=== PATIENT | female | born 1965 | race Caucasian/White ===

== ENCOUNTER 2017-05-25 07:37 | Emergency (ER) | payer BC, MEDICAID ==
--- NOTE | 2017-05-25 07:57 | EDM.PDOC ---
ED HPI GENERAL MEDICAL PROBLEM - General Chief Complaint: Headache Stated Complaint: CONSTANT HEADACHE; ISSUES WITH URINATION Time Seen by Provider: 05/25/17 07:46 Source of Information: Reports: Patient History Limitations: Reports: No Limitations - History of Present Illness INITIAL COMMENTS - FREE TEXT/NARRATIVE: History of present illness: []Patient states that she has been having dark-colored urine with a foul odor. Patient has had a complete hysterectomy in the past. She denies any fevers, chills, nausea or vomiting. She has a moderate headache that is mostly on the left side at the base of her skull posteriorly. She denies any numbness tingling or blurry vision. Patient has had easy and chlamydia in the past states she moved in with her boyfriend one month ago and has been having "a lot of intercourse". Review of systems: As per history of present illness and below otherwise all systems reviewed and negative. Past medical history: As per history of present illness and as reviewed below otherwise noncontributory. Surgical history: As per history of present illness and as reviewed below otherwise noncontributory. Social history: No reported history of drug or alcohol abuse. Family history: As per history of present illness and as reviewed below otherwise noncontributory. Physical exam: General: Well developed, well nourished in NAD HEENT: Atraumatic, normocephalic, pupils reactive, negative for conjunctival pallor or scleral icterus, mucous membranes moist, throat clear, neck supple, nontender, trachea midline. Lungs: Clear to auscultation, breath sounds equal bilaterally, chest nontender. Heart: S1S2, regular, negative for clicks, rubs, or JVD. Abdomen: Soft, nondistended, nontender. Negative for masses or hepatosplenomegaly. Negative for costovertebral tenderness. Pelvis: Stable nontender. Genitourinary: Deferred. Rectal: Deferred. Extremities: Atraumatic, negative for cords or calf pain. Neurovascular unremarkable. Neuro: Awake, alert, oriented. Cranial nerves II through XII unremarkable. Cerebellum unremarkable. Motor and sensory unremarkable throughout. Exam nonfocal. Diagnostics: []UA shows positive nitrites with 2-4 white cells, wet prep shows positive Gardnerella Therapeutics: []Metronidazole and Maxalt prescribed Impression: []Bacterial vaginosis, chronic migraines Plan: []Follow-up PMD take meds as directed to return if symptoms worsen or change Definitive disposition and diagnosis as appropriate pending reevaluation and review of above. Headache Pain Score (Numeric/FACES): 8 - Related Data Allergies Allergy/AdvReac Type Severity Reaction Status Date / Time Iodine and Iodide Containing Allergy Mild Hives Verified 05/25/17 07:50 Produc Sulfa (Sulfonamide AdvReac Vomiting Verified 05/25/17 07:50 Antibiotics) sumatriptan [From Imitrex] AdvReac Tachycardia Verified 05/25/17 07:50 sumatriptan succinate AdvReac Tachycardia Verified 05/25/17 07:50 [From Imitrex] Home Meds: Home Meds Levothyroxine [Synthroid] 75 mcg PO DAILY 01/14/14 [History] Chlorthalidone 25 mg PO DAILY 08/19/15 [History] Metronidazole [IMW: metroNIDAZOLE] 500 mg PO .EVERY 12 HOURS #20 tab 05/25/17 [ Rx] Rizatriptan Benzoate [Maxalt] 5 mg PO ASDIRECTED PRN #6 tablet 05/25/17 [Rx] Past Medical History HEENT History: Reports: None Cardiovascular History: Reports: Hypertension Respiratory History: Reports: Other (See Below) Other Respiratory History: nodule on one lung Gastrointestinal History: Reports: Colon Polyp, GERD Genitourinary History: Reports: None 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 Dermatologic History: Reports: None - Infectious Disease History Infectious Disease History: Reports: None - Past Surgical History Head Surgeries/Procedures: Reports: None HEENT Surgical History: Reports: Naso-Sinus Surgery Cardiovascular Surgical History: Reports: None Female Surgical History: Reports: Hysterectomy Neurological Surgical History: Reports: None Musculoskeletal Surgical History: Reports: Other (See Below) Oncologic Surgical History: Reports: None Dermatological Surgical History: Reports: None Social & Family History - Family History Family Medical History: Noncontributory HEENT: Reports: Glaucoma Cardiac: Reports: Aneurysm, Hypertension OBGYN: Reports: Musculoskeletal: Reports: Arthritis Psychiatric: Reports: Bipolar Oncologic: Reports: Lymphoma, Skin - Tobacco Use Smoking Status *Q: Current Every Day Smoker Years of Tobacco use: 36 Packs/Tins Daily: 0.5 Used Tobacco, but Quit: No Second Hand Smoke Exposure: No - Caffeine Use Caffeine Use: Reports: None - Alcohol Use Days Per Week of Alcohol Use: 3 Number of Drinks Per Day: 2 Total Drinks Per Week: 6 - Recreational Drug Use Recreational Drug Use: No Drug Use in Last 12 Months: Yes Recreational Drug Type: Reports: Marijuana/Hashish Recreational Drug Use Frequency: Rarely Recreational Drug Last Use: 06/15/14 ED ROS GENERAL - Review of Systems Review Of Systems: See Below (See history of present illness) ED EXAM, RENAL/ - Physical Exam Exam: See Below (See history of present illness) Course - Vital Signs Last Recorded V/S: Last Vital Signs Temp 36.3 C 05/25/17 07:47 Pulse 90 05/25/17 07:47 Resp 16 05/25/17 07:47 BP 170/118 H 05/25/17 07:47 Pulse Ox 95 05/25/17 07:47 - Orders/Labs/Meds Orders: Active Orders 24 hr Category Date Time Status CHLAMYDIA TRACHOMATIS/GC AMPLF Routine Lab 05/25/17 08:30 Received Labs: Laboratory Tests 05/25/17 05/25/17 Range/Units 08:01 08:30 Urine Color YELLOW Urine Appearance HAZY Urine pH 6.0 (5.0-8.0) Ur Specific [place] 1.025 (1.001-1.035) Urine Protein 100 (NEGATIVE) mg/dL Urine Glucose (UA) NEGATIVE (NEGATIVE) mg/dL Urine Ketones NEGATIVE (NEGATIVE) mg/dL Urine Occult Blood NEGATIVE (NEGATIVE) Urine Nitrite POSITIVE H (NEGATIVE) Urine Bilirubin NEGATIVE (NEGATIVE) Urine Urobilinogen 0.2 (<2.0) EU/dL Ur Leukocyte Esterase NEGATIVE (NEGATIVE) Urine RBC 0-2 (0-2/HPF) Urine WBC 2-4 (0-5/HPF) Ur Epithelial Cells FEW (NONE-FEW) Urine Bacteria 1+ H (NEGATIVE) Alix species DNA NEGATIVE (NEGATIVE) Gardnerella DNA Probe POSITIVE H (NEGATIVE) Trichomonas DNA Probe NEGATIVE (NEGATIVE) Meds: Medications Discontinued Medications Generic Name Dose Route Start Last Admin Trade Name Freq PRN Reason Stop Dose Admin Ketorolac Tromethamine 60 mg 05/25/17 07:58 05/25/17 08:18 Toradol IM 05/25/17 07:59 60 mg ONETIME ONE Administration Departure - Departure Time of Disposition: 09:48 Disposition: Home, Self-Care 01 Condition: Good Clinical Impression: Bacterial vaginosis - Discharge Information Prescriptions: Metronidazole [IMW: metroNIDAZOLE] 500 mg PO .EVERY 12 HOURS #20 tab Rizatriptan Benzoate [Maxalt] 5 mg PO ASDIRECTED PRN #6 tablet PRN Reason: Pain Referrals: PCP,None [Primary Care Provider] - Forms: ED Department Discharge Additional Instructions: The following information is given to patients seen in the emergency department who are being discharged to home. This information is to outline your options for follow-up care. We provide all patients seen in our emergency department with a follow-up referral. The need for follow-up, as well as the timing and circumstances, are variable depending upon the specifics of your emergency department visit. If you don't have a primary care physician on staff, we will provide you with a referral. We always advise you to contact your personal physician following an emergency department visit to inform them of the circumstance of the visit and for follow-up with them and/or the need for any referrals to a consulting specialist. The emergency department will also refer you to a specialist when appropriate. This referral assures that you have the opportunity for follow-up care with a specialist. All of these measure are taken in an effort to provide you with optimal care, which includes your follow-up. Under all circumstances we always encourage you to contact your private physician who remains a resource for coordinating your care. When calling for follow-up care, please make the office aware that this follow-up is from your recent emergency room visit. If for any reason you are refused follow-up, please contact the [facility] Emergency Department at and asked to speak to the emergency department charge nurse. Metronidazole for bacterial vaginosis and Maxalt for chronic migraine take as directed. Follow-up with your PMD [facility] [address] [place] [id number] - My Orders Last 24 Hours: My Active Orders 05/25/17 08:30 CHLAMYDIA TRACHOMATIS/GC AMPLF Routine - Assessment/Plan Last 24 Hours: My Active Orders 05/25/17 08:30 CHLAMYDIA TRACHOMATIS/GC AMPLF Routine
[2017-05-25] MEDS ORDERED: Ketorolac 60 MG/2 ML SDV IM ONE (07:58)
[2017-05-25 10:04] VITALS: BP 162/106
== END 2017-05-25 10:00 | disposition home or self-care (01) ==
LOC: MW.ED 07:37
DX: N76.0 Acute vaginitis (principal); G43.909 Migraine, unspecified, not intractable, without status migrainosus; I10 Essential (primary) hypertension; K21.9 Gastro-esophageal reflux disease without esophagitis; F17.210 Nicotine dependence, cigarettes, uncomplicated; E03.9 Hypothyroidism, unspecified; Z90.710 Acquired absence of both cervix and uterus; Z88.2 Allergy status to sulfonamides; Z88.8 Allergy status to other drugs, medicaments and biological substances; Z79.899 Other long term (current) drug therapy
CPT/HCPCS: 81001; 87480; 87491; 87510; 87591; 87660; 96372; 99284; J1885; 99283

== ENCOUNTER 2017-08-18 13:17 | Observation (INO) | payer MEDICAID ==
[2017-08-18] MEDS ORDERED: Aspirin 81 MG Tab.Chew PO ONE (13:26)
[2017-08-18] MEDS ORDERED: Sodium Chloride 0.9% 1,000 ML IV ONE (13:26)
--- NOTE | 2017-08-18 13:40 | EDM.PDOC ---
ED HPI GENERAL MEDICAL PROBLEM - General Chief Complaint: Cardiovascular Problem Stated Complaint: CHEST Time Seen by Provider: 08/18/17 13:25 Source of Information: Reports: Patient History Limitations: Reports: No Limitations - History of Present Illness INITIAL COMMENTS - FREE TEXT/NARRATIVE: HISTORY AND PHYSICAL: History of present illness: Patient comes to the emergency room complaining of pain in her chest radiating up into both sides of her jaw. Started 3 hours ago, around 9 AM, and has not let up since onset. Began after eating breakfast at [employer]. She complains of a sensation of pressure to her mid chest and the sensation of her heart pounding in her chest. No shortness of breath or difficulty breathing. Has a history of GERD which she questions if this could be contributing to the pain in her chest. She is to take Prilosec but has not for several years since his symptoms let up. No fever or chills. She has not recently had any illness or infection. She followed up with her PCP yesterday and was represcribed lithium, Levothroid, chlorthalidone. She's not been taking his medications for some time because she did not have insurance. She restarted all of her medicines yesterday. No recent illness or infections. No fever or chills. No earaches runny nose or sore throat. No neck pain. Denies shortness of breath and difficulty breathing. Mild nausea. No vomiting constipation or diarrhea. No blood in her urine or low back pain. No change to strength or energy. No extremity swelling. Reports a history of bipolar disorder which she believes is been well controlled. Review of systems: As per history of present illness and below otherwise all systems reviewed and negative. Past medical history: As per history of present illness and as reviewed below otherwise noncontributory. Surgical history: As per history of present illness and as reviewed below otherwise noncontributory. Social history: No reported history of drug or alcohol abuse. Family history: As per history of present illness and as reviewed below otherwise noncontributory. Physical exam: HEENT: Atraumatic, normocephalic. Oral mucous membranes moist. Neck: Supple. no lymphadenopathy or tenderness. Lungs: Clear to auscultation, breath sounds equal bilaterally. Chest pain is reproduced with palpation across her mid sternum and left anterior chest wall. Heart: S1S2, rate mid 90s but rhythm is regular. No murmur gallop click or rub. Abdomen: Bowel sounds are normoactive throughout. Abdomen is soft and nontender. No guarding masses or rebound. Pelvis: Stable nontender. Genitourinary: Deferred. Rectal: Deferred. Extremities: Atraumatic, negative for cords or calf pain. No swelling or cyanosis to feet or lower legs. Neurovascular unremarkable. Neuro: Awake, alert, oriented. Motor and sensory unremarkable throughout. Exam nonfocal. Diagnostics: [CBC, CMP, PT/INR/PTT, troponin, UA, urine , EKG, chest x-ray] Therapeutics: [1 liter NS, aspirin 325mg po, nitro 0.4mg 2, Reglan 10 mg IV, Zofran 4 mg IV, Benadryl 25 mg IV ] Impression: [Chest pain] Plan: [After the second nitroglycerin patient complains of a headache. This is a typical headache for her. Reglan Zofran and Benadryl are ordered with IV fluids running. Case is discussed with Dr. Sierra who recommends observation. Is completely chest pain free after 2 nitro, and upon admission for observation, though her headache does continue. Patient in agreement with today's plan. ] Definitive disposition and diagnosis as appropriate pending reevaluation and review of above. chest Pain Score (Numeric/FACES): 7 - Related Data Allergies Allergy/AdvReac Type Severity Reaction Status Date / Time Iodine and Iodide Containing Allergy Mild Hives Verified 08/18/17 13:24 Produc Sulfa (Sulfonamide AdvReac Vomiting Verified 08/18/17 13:24 Antibiotics) sumatriptan [From Imitrex] AdvReac Tachycardia Verified 08/18/17 13:24 sumatriptan succinate AdvReac Tachycardia Verified 08/18/17 13:24 [From Imitrex] Home Meds: Home Meds Levothyroxine [Synthroid] 75 mcg PO DAILY 01/14/14 [History] Chlorthalidone [Chlorthalidone] 12.5 mg PO DAILY 08/18/17 [History] [place] Carbonate 300 mg PO DAILY 08/18/17 [History] Past Medical History HEENT History: Reports: None Cardiovascular History: Reports: Hypertension Respiratory History: Reports: Other (See Below) Other Respiratory History: nodule on one lung Gastrointestinal History: Reports: Colon Polyp, GERD 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 Dermatologic History: Reports: None - Infectious Disease History Infectious Disease History: Reports: None - Past Surgical History Head Surgeries/Procedures: Reports: None HEENT Surgical History: Reports: Naso-Sinus Surgery Cardiovascular Surgical History: Reports: None Female Surgical History: Reports: Hysterectomy Neurological Surgical History: Reports: None Musculoskeletal Surgical History: Reports: Other (See Below) Oncologic Surgical History: Reports: None Dermatological Surgical History: Reports: None Social & Family History - Family History Family Medical History: Noncontributory HEENT: Reports: Glaucoma Cardiac: Reports: Aneurysm, Hypertension OBGYN: Reports: Musculoskeletal: Reports: Arthritis Psychiatric: Reports: Bipolar Oncologic: Reports: Lymphoma, Skin - Tobacco Use Smoking Status *Q: Current Every Day Smoker Years of Tobacco use: 36 Packs/Tins Daily: 0.5 Used Tobacco, but Quit: No Second Hand Smoke Exposure: No - Caffeine Use Caffeine Use: Reports: None - Alcohol Use Days Per Week of Alcohol Use: 3 Number of Drinks Per Day: 2 Total Drinks Per Week: 6 - Recreational Drug Use Recreational Drug Use: No Drug Use in Last 12 Months: Yes Recreational Drug Type: Reports: Marijuana/Hashish Recreational Drug Use Frequency: Rarely Recreational Drug Last Use: 06/15/14 ED ROS GENERAL - Review of Systems Review Of Systems: ROS reveals no pertinent complaints other than HPI. ED EXAM, GENERAL - Physical Exam Exam: See Below Course - Vital Signs Last Recorded V/S: Last Vital Signs Temp 98.4 F 08/18/17 13:25 Pulse 84 08/18/17 13:25 Resp 18 08/18/17 13:25 BP 142/88 H 08/18/17 14:17 Pulse Ox 98 08/18/17 13:25 - Orders/Labs/Meds Orders: Active Orders 24 hr Category Date Time Status Patient Status [ADT] Stat ADT 08/18/17 14:32 Active Cardiac Monitoring [RC] . DIRECTED Care 08/18/17 14:35 Active EKG Documentation Completion [RC] STAT Care 08/18/17 13:26 Active Nitroglycerin [Nitrostat] Med 08/18/17 13:51 Active 0.4 mg SL Q5M PRN Medication Orders Nitroglycerin (Nitrostat) 0.4 mg SL Q5M PRN PRN Reason: Chest Pain Last Admin: 08/18/17 14:17 Dose: 0.4 mg Admin: 08/18/17 14:12 Dose: 0.4 mg Labs: Laboratory Tests 08/18/17 08/18/17 08/18/17 Range/Units 13:30 13:30 13:30 WBC 5.68 (4.0-11.0) K/uL RBC 4.36 (4.30-5.90) M/uL Hgb 14.6 (12.0-16.0) g/dL Hct 42.5 (36.0-46.0) % MCV 97.5 (80.0-98.0) fL MCH 33.5 H (27.0-32.0) pg MCHC 34.4 (31.0-37.0) g/dL RDW Std Deviation 46.8 (28.0-62.0) fl RDW Coeff of Fidencio 13 (11.0-15.0) % Plt Count 223 (150-400) K/uL MPV 10.10 (7.40-12.00) fL Neut % (Auto) 50.0 (48.0-80.0) % Lymph % (Auto) 38.7 (16.0-40.0) % [place] % (Auto) 9.9 (0.0-15.0) % Eos % (Auto) 1.2 (0.0-7.0) % Baso % (Auto) 0.2 (0.0-1.5) % Neut # (Auto) 2.8 (1.4-5.7) K/uL Lymph # (Auto) 2.2 (0.6-2.4) K/uL [place] # (Auto) 0.6 (0.0-0.8) K/uL Eos # (Auto) 0.1 (0.0-0.7) K/uL Baso # (Auto) 0.0 (0.0-0.1) K/uL Nucleated RBC % 0.0 /100WBC Nucleated RBCs # 0 K/uL INR 1.07 (0.86-1.11) Sodium 141 (136-146) mmol/L Potassium 3.6 (3.5-5.1) mmol/L Chloride 103 (98-110) mmol/L Carbon Dioxide 29 (21-31) mmol/L BUN 12 (6.0-23.0) mg/dL Creatinine 0.8 (0.6-1.5) mg/dL Est Cr Clr Drug Dosing 71.84 mL/min Estimated GFR (MDRD) > 60.0 ml/min Glucose 117 H (60-110) mg/dL Calcium 10.1 (8.8-10.8) mg/dL Total Bilirubin 0.2 (0.1-1.5) mg/dL AST 31 (5-40) IU/L ALT 26 (8-54) IU/L Alkaline Phosphatase 118 (40-150) Troponin I < 0.10 (0.0-0.29) NG/ML Total Protein 7.4 (6.0-8.0) g/dL Albumin 4.2 (3.5-5.0) g/dL Globulin 3.2 (2.0-3.5) g/dL Albumin/Globulin Ratio 1.3 (1.3-2.8) Amylase 64 (10-90) U/L Lipase 23 (7-80) U/L Urine Color Urine Appearance Urine pH (5.0-8.0) Ur Specific [place] (1.001-1.035) Urine Protein (NEGATIVE) mg/dL Urine Glucose (UA) (NEGATIVE) mg/dL Urine Ketones (NEGATIVE) mg/dL Urine Occult Blood (NEGATIVE) Urine Nitrite (NEGATIVE) Urine Bilirubin (NEGATIVE) Urine Urobilinogen (<2.0) EU/dL Ur Leukocyte Esterase (NEGATIVE) Urine RBC (0-2/HPF) Urine WBC (0-5/HPF) Ur Epithelial Cells (NONE-FEW) Urine Bacteria (NEGATIVE) Urine HCG, Qual (NEGATIVE) 08/18/17 08/18/17 Range/Units 14:08 14:08 WBC (4.0-11.0) K/uL RBC (4.30-5.90) M/uL Hgb (12.0-16.0) g/dL Hct (36.0-46.0) % MCV (80.0-98.0) fL MCH (27.0-32.0) pg MCHC (31.0-37.0) g/dL RDW Std Deviation (28.0-62.0) fl RDW Coeff of Fidencio (11.0-15.0) % Plt Count (150-400) K/uL MPV (7.40-12.00) fL Neut % (Auto) (48.0-80.0) % Lymph % (Auto) (16.0-40.0) % [place] % (Auto) (0.0-15.0) % Eos % (Auto) (0.0-7.0) % Baso % (Auto) (0.0-1.5) % Neut # (Auto) (1.4-5.7) K/uL Lymph # (Auto) (0.6-2.4) K/uL [place] # (Auto) (0.0-0.8) K/uL Eos # (Auto) (0.0-0.7) K/uL Baso # (Auto) (0.0-0.1) K/uL Nucleated RBC % /100WBC Nucleated RBCs # K/uL INR (0.86-1.11) Sodium (136-146) mmol/L Potassium (3.5-5.1) mmol/L Chloride (98-110) mmol/L Carbon Dioxide (21-31) mmol/L BUN (6.0-23.0) mg/dL Creatinine (0.6-1.5) mg/dL Est Cr Clr Drug Dosing mL/min Estimated GFR (MDRD) ml/min Glucose (60-110) mg/dL Calcium (8.8-10.8) mg/dL Total Bilirubin (0.1-1.5) mg/dL AST (5-40) IU/L ALT (8-54) IU/L Alkaline Phosphatase (40-150) Troponin I (0.0-0.29) NG/ML Total Protein (6.0-8.0) g/dL Albumin (3.5-5.0) g/dL Globulin (2.0-3.5) g/dL Albumin/Globulin Ratio (1.3-2.8) Amylase (10-90) U/L Lipase (7-80) U/L Urine Color YELLOW Urine Appearance CLEAR Urine pH 8.0 (5.0-8.0) Ur Specific [place] 1.015 (1.001-1.035) Urine Protein 100 (NEGATIVE) mg/dL Urine Glucose (UA) NEGATIVE (NEGATIVE) mg/dL Urine Ketones NEGATIVE (NEGATIVE) mg/dL Urine Occult Blood NEGATIVE (NEGATIVE) Urine Nitrite NEGATIVE (NEGATIVE) Urine Bilirubin NEGATIVE (NEGATIVE) Urine Urobilinogen 0.2 (<2.0) EU/dL Ur Leukocyte Esterase NEGATIVE (NEGATIVE) Urine RBC 0-1 (0-2/HPF) Urine WBC 0-3 (0-5/HPF) Ur Epithelial Cells FEW (NONE-FEW) Urine Bacteria FEW (NEGATIVE) Urine HCG, Qual NEGATIVE (NEGATIVE) Meds: Medications Generic Name Dose Route Start Last Admin Trade Name Freq PRN Reason Stop Dose Admin Nitroglycerin 0.4 mg 08/18/17 13:51 08/18/17 14:17 Nitrostat SL 0.4 mg Q5M PRN Administration Chest Pain Discontinued Medications Generic Name Dose Route Start Last Admin Trade Name Freq PRN Reason Stop Dose Admin Aspirin 324 mg 08/18/17 13:26 08/18/17 13:40 Aspirin PO 08/18/17 13:27 324 mg ONETIME ONE Administration Al Hydroxide/Mg Hydroxide 15 0 ml 08/18/17 14:19 08/18/17 14:33 ml/ Metoclopramide HCl 5 mg/ PO 08/18/17 14:20 1 each Lidocaine HCl 5 ml ONETIME ONE Administration Diphenhydramine HCl 25 mg 08/18/17 14:39 08/18/17 14:50 Benadryl IVPUSH 08/18/17 14:40 25 mg ONETIME ONE Administration Sodium Chloride 1,000 mls @ 999 mls/hr 08/18/17 13:26 08/18/17 13:41 Normal Saline IV 08/18/17 14:26 999 mls/hr .Bolus ONE Administration Ketorolac Tromethamine 30 mg 08/18/17 14:39 08/18/17 14:49 Toradol IVPUSH 08/18/17 14:40 30 mg ONETIME ONE Administration Metoclopramide HCl 10 mg 08/18/17 14:39 08/18/17 14:49 Reglan IV 08/18/17 14:40 10 mg ONETIME ONE Administration Ondansetron HCl 4 mg 08/18/17 14:19 08/18/17 14:33 Zofran IVPUSH 08/18/17 14:20 4 mg ONETIME ONE Administration Pantoprazole Sodium 80 mg 08/18/17 14:19 08/18/17 14:33 Protonix Iv IVPUSH 08/18/17 14:20 80 mg .BOLUS ONE Administration Departure - Departure Time of Disposition: 14:32 Disposition: Refer to Observation Condition: Good Clinical Impression: Chest pain Referrals: PCP,Unknown [Primary Care Provider] - Forms: ED Department Discharge - My Orders Last 24 Hours: My Active Orders 08/18/17 13:26 EKG Documentation Completion [RC] STAT 08/18/17 13:51 Nitroglycerin [Nitrostat] 0.4 mg SL Q5M PRN 08/18/17 14:32 Patient Status [ADT] Stat 08/18/17 14:35 Cardiac Monitoring [RC] . DIRECTED - Assessment/Plan Last 24 Hours: My Active Orders 08/18/17 13:26 EKG Documentation Completion [RC] STAT 08/18/17 13:51 Nitroglycerin [Nitrostat] 0.4 mg SL Q5M PRN 08/18/17 14:32 Patient Status [ADT] Stat 08/18/17 14:35 Cardiac Monitoring [RC] . DIRECTED
[2017-08-18 14:07] LABS: CHLORIDE,CL 103 mmol/L (98-110); SODIUM,NA 141 mmol/L (136-146)
[2017-08-18] MEDS: Nitroglycerin 0.4 MG Tab.SL SL PRN ×2 (14:12→14:17)
[2017-08-18] MEDS ORDERED: Ondansetron 4 MG/2 ML SDV IVPUSH ONE (14:19)
[2017-08-18] MEDS ORDERED: Alum Hydrox/Mag Hydrox/Simeth 15 ML, Metoclopramide 5 MG, Lidocaine 2% 5 ML PO ONE ×3 (14:19)
[2017-08-18] MEDS ORDERED: Pantoprazole 40 MG Vial IVPUSH ONE (14:19)
[2017-08-18] MEDS ORDERED: Ketorolac 30 MG/ML SDV IVPUSH ONE (14:39)
[2017-08-18] MEDS ORDERED: Metoclopramide 10 MG/2 ML SDV IV ONE (14:39)
[2017-08-18] MEDS ORDERED: diphenhydrAMINE 50 MG/ML SDV IVPUSH ONE (14:39)
--- NOTE | 2017-08-18 15:00 | CR ---
EXAM DATE: 08/18/17 PATIENT'S AGE: 52 Patient: JUSTIN STUBBS Facility: [facility], [place] Site . Site : [id number] Study: XRay Chest [id number] 2:04:14 PM Ordering Physician: Doctor Wheeler Final Report: CHEST 2 VIEWS INDICATION: Chest pain IMPRESSION: Normal heart size and vascular pattern. No pulmonary consolidation. No pneumothorax or pleural abnormality. The upper lobes show scattered bronchial wall thickening which could be chronic. Correlate with symptoms. No pulmonary consolidation. Dictated by Oskar Haro MD @ Aug 18 2017 2:18PM (Electronic Signature) Report Signed by Proxy. DELMIS
[2017-08-18] MEDS ORDERED: Acetaminophen 325 MG Tab PO PRN (15:46)
[2017-08-18] MEDS ORDERED: FLU Vacc QS 2017-18 (36mos UP)/PF 60 MCG/0.5 ML Syringe IM ONE (16:00)
--- NOTE | 2017-08-18 19:51 | PCM.HP ---
H&P History of Present Illness - History of Present Illness Initial Comments - Free Text/Narative: 52 yo female with pmh HTN, hypothyroidsim, and depression who presents with several hour history of chest pain. She describes the chest pain as substernal and associated with palpitations. She has had similar symptoms in the past but never this severe. In the ED she was noted to have blood pressure of 170-150s systolic and HR in 80s. EKG and cardiac enzymes were negative for signs of ischemia. She received two sublingual nitros with resolution of chest pain. chest Pain Score (Numeric/FACES): 7 - Related Data Allergies/Adverse Reactions: Allergies Allergy/AdvReac Type Severity Reaction Status Date / Time Iodine and Iodide Containing Allergy Mild Hives Verified 08/18/17 13:24 Produc Sulfa (Sulfonamide AdvReac Vomiting Verified 08/18/17 13:24 Antibiotics) sumatriptan [From Imitrex] AdvReac Tachycardia Verified 08/18/17 13:24 sumatriptan succinate AdvReac Tachycardia Verified 08/18/17 13:24 [From Imitrex] Home Medications: Home Meds Levothyroxine [Synthroid] 75 mcg PO DAILY 01/14/14 [History] Chlorthalidone 12.5 mg PO DAILY 08/18/17 [History] [place] Carbonate 300 mg PO DAILY 08/18/17 [History] Metoprolol Succinate 50 mg PO DAILY #30 tab.er.24h 08/19/17 [Rx] Past Medical History HEENT History: Reports: None Cardiovascular History: Reports: Hypertension Respiratory History: Reports: Other (See Below) Other Respiratory History: nodule on one lung Gastrointestinal History: Reports: Colon Polyp, GERD Genitourinary History: Reports: None 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 Dermatologic History: Reports: None - Infectious Disease History Infectious Disease History: Reports: None - Past Surgical History Head Surgeries/Procedures: Reports: None HEENT Surgical History: Reports: Naso-Sinus Surgery Cardiovascular Surgical History: Reports: None Female Surgical History: Reports: Hysterectomy Neurological Surgical History: Reports: None Musculoskeletal Surgical History: Reports: Other (See Below) Oncologic Surgical History: Reports: None Dermatological Surgical History: Reports: None Social & Family History - Family History Family Medical History: Noncontributory HEENT: Reports: Glaucoma Cardiac: Reports: Aneurysm, Hypertension OBGYN: Reports: Musculoskeletal: Reports: Arthritis Psychiatric: Reports: Bipolar Oncologic: Reports: Lymphoma, Skin - Tobacco Use Smoking Status *Q: Current Every Day Smoker Years of Tobacco use: 30 Packs/Tins Daily: 0.5 Used Tobacco, but Quit: No Second Hand Smoke Exposure: No - Caffeine Use Caffeine Use: Reports: Coffee - Alcohol Use Days Per Week of Alcohol Use: 3 Number of Drinks Per Day: 2 Total Drinks Per Week: 6 - Recreational Drug Use Recreational Drug Use: No Drug Use in Last 12 Months: Yes Recreational Drug Type: Reports: Marijuana/Hashish Recreational Drug Use Frequency: Rarely Recreational Drug Last Use: 06/15/14 H&P Review of Systems - Review of Systems: Review Of Systems: ROS reveals no pertinent complaints other than HPI. Exam - Exam Exam: See Below - Vital Signs Vital Signs: Last Vital Signs Temp 37.2 C 08/18/17 15:23 Pulse 67 08/18/17 15:23 Resp 20 08/18/17 15:23 BP 136/85 08/18/17 15:23 Pulse Ox 94 L 08/18/17 15:23 Weight: 54.431 kg - Exam General: Alert, Oriented, 4 HEENT: Mucosa Moist & [place] Lungs: Clear to Auscultation, Normal Respiratory Effort Cardiovascular: Regular Rate, Regular Rhythm GI/Abdominal Exam: Soft, Non-Tender Extremities: Normal Inspection, No Pedal Edema Peripheral Pulses: 0: Dorsalis Pedis (R) Skin: Warm, Dry, Intact Neurological: No: Focal Deficit - Patient Data Result Diagrams: 08/18/17 13:30 08/18/17 13:30 *Q Meaningful Use (ADM) - VTE *Q VTE Criteria *Q: - Stroke *Q Stroke Criteria *Q: - AMI *Q AMI Criteria *Q: Problem List Initiated/Reviewed/Updated: Yes Orders Last 24hrs: Active Orders 24 hr Category Date Time Status Antiembolic Devices [RC] PER UNIT ROUTINE Care 08/18/17 19:45 Ordered Intake and Output [RC] QSHIFT Care 08/18/17 19:44 Ordered Oxygen Therapy [RC] PRN Care 08/18/17 19:44 Ordered Telemetry Monitoring [Cardiac Monitoring] [RC] Q8H Care 08/18/17 15:50 Active Up ad Selina [RC] ASDIRECTED Care 08/18/17 19:44 Ordered VTE/DVT Education [RC] PER UNIT ROUTINE Care 08/18/17 19:44 Ordered Vital Signs [RC] Q4H Care 08/18/17 19:44 Ordered Heart Healthy Diet [DIET] Diet 08/18/17 Dinner Active TROPONIN I [CHEM] Q6H Lab 08/18/17 19:35 Received TROPONIN I [CHEM] Q6H Lab 08/19/17 01:30 Ordered Acetaminophen [Tylenol] Med 08/18/17 15:46 Active 650 mg PO Q6H PRN Enoxaparin [Lovenox] Med 08/19/17 09:00 Ordered 40 mg SUBCUT DAILY Sequential Compression Device [OM.PC] Per Unit Routine Oth 08/18/17 19:44 Ordered Resuscitation Status Routine Resus Stat 08/18/17 19:44 Ordered Medication Orders Acetaminophen (Tylenol) 650 mg PO Q6H PRN PRN Reason: Pain Last Admin: 08/18/17 17:56 Dose: 650 mg Nitroglycerin (Nitrostat) 0.4 mg SL Q5M PRN PRN Reason: Chest Pain Last Admin: 08/18/17 14:17 Dose: 0.4 mg Admin: 08/18/17 14:12 Dose: 0.4 mg Assessment/Plan Comment:: 52 yo female who presents with chest pain and palpitations. We will monitor overnight on telemetry and trend cardiac enzymes. Metoprolol has been added to her antihypertensive medications. Update: She ruled out for acute coronary syndrome with serial negative cardiac enzymes. She was discharged home with follow up with Dr. Rosario and referal for cardiac stress testing. She was given a prescription of metoprolol succinate 50mg daily for 30 days.
[2017-08-18] MEDS: Metoprolol Tartrate 25 MG Tab PO SCH (20:34)
[2017-08-19] MEDS ORDERED: Levothyroxine 75 MCG Tab PO SCH (07:00)
[2017-08-19] MEDS: Metoprolol Tartrate 25 MG Tab PO SCH (08:32)
[2017-08-19] MEDS ORDERED: FLU Vacc QS 2017-18 (36mos UP)/PF 60 MCG/0.5 ML Syringe IM ONE (08:45)
[2017-08-19] MEDS ORDERED: Chlorthalidone 25 MG Tab PO SCH (09:00)
[2017-08-19] MEDS ORDERED: Enoxaparin 40 MG/0.4 ML Syringe SUBCUT SCH (09:00)
[2017-08-19] MEDS ORDERED: Lithium Carbonate 300 MG Cap PO SCH (09:00)
[2017-08-19 09:55] VITALS: BP 144/91
== END 2017-08-19 10:00 | disposition home or self-care (01) ==
LOC: MW.ED 13:17 → MW.MS 15:18
PROVIDERS: ADMIT Internal Medicine; ATTEND Internal Medicine
DX: R07.2 Precordial pain (principal); R00.2 Palpitations; I10 Essential (primary) hypertension; E03.9 Hypothyroidism, unspecified; F17.210 Nicotine dependence, cigarettes, uncomplicated; Z86.010 Personal history of colon polyps; Z85.41 Personal history of malignant neoplasm of cervix uteri; Z88.2 Allergy status to sulfonamides; Z88.8 Allergy status to other drugs, medicaments and biological substances; Z91.048 Other nonmedicinal substance allergy status; Z79.899 Other long term (current) drug therapy; Z90.710 Acquired absence of both cervix and uterus; Z98.890 Other specified postprocedural states
CPT/HCPCS: 36415; 71020; 80053; 81001; 81025; 82150; 83690; 84484; 85025; 85610; 96361; 96372; 96374; 96375; 99285; A9270; C9113; G0008; G0378; J1200; J1650; J1885; J2405; J2765; J7040; 90686

== ENCOUNTER 2017-10-31 13:54 | Emergency (ER) | payer MEDICAID, OTHER ==
--- NOTE | 2017-10-31 14:51 | CR ---
EXAMINATION: Right elbow HISTORY: Fall COMPARISON: None TECHNIQUE: 3 views FINDINGS/IMPRESSION: There is no acute osseous abnormality, dislocation, or fracture. Bone mineraliza tion and joint spaces appear normal. No joint effusion or soft tissue swelling.
--- NOTE | 2017-10-31 15:07 | EDM.PDOC ---
ED HPI GENERAL MEDICAL PROBLEM - General Chief Complaint: Upper Extremity Injury/Pain Stated Complaint: RT ELBOW PAIN Time Seen by Provider: 10/31/17 15:07 Source of Information: Reports: Patient - History of Present Illness INITIAL COMMENTS - FREE TEXT/NARRATIVE: HISTORY AND PHYSICAL: History of present illness: []Patient was working today and a vacuum coke still cleaner fell striking her right temporal area she does have a goose egg on the right side of her head there is no loss of consciousness no neck pain no fever nausea vomiting chills sweats no chest pain shortness breath headache dizziness palpitation no bowel or urine symptoms at current She states after the incident she did "see stars " She has a bruise on her right elbow and complains of 6 out of 10 pain associated with this Review of systems: As per history of present illness and below otherwise all systems reviewed and negative. Past medical history: As per history of present illness and as reviewed below otherwise noncontributory. Surgical history: As per history of present illness and as reviewed below otherwise noncontributory. Social history: No reported history of drug or alcohol abuse. Family history: As per history of present illness and as reviewed below otherwise noncontributory. Physical exam: HEENT: Atraumatic, normocephalic, pupils reactive, negative for conjunctival pallor or scleral icterus, mucous membranes moist, throat clear, neck supple, nontender, trachea midline. Lungs: Clear to auscultation, breath sounds equal bilaterally, chest nontender. Heart: S1S2, regular, negative for clicks, rubs, or JVD. Abdomen: Soft, nondistended, nontender. Negative for masses or hepatosplenomegaly. Negative for costovertebral tenderness. Pelvis: Stable nontender. Genitourinary: Deferred. Rectal: Deferred. Extremities: Atraumatic, negative for cords or calf pain. Neurovascular unremarkable. Bruise on right elbow Neuro: Awake, alert, oriented. Cranial nerves II through XII unremarkable. Cerebellum unremarkable. Motor and sensory unremarkable throughout. Exam nonfocal. Diagnostics: [Right elbow complete Head CT no contrast ordered patient refused ] Therapeutics: []Rest ice ibuprofen Impression: [Probable concussion Contusion] Definitive disposition and diagnosis as appropriate pending reevaluation and review of above. - Related Data Allergies Allergy/AdvReac Type Severity Reaction Status Date / Time Iodine and Iodide Containing Allergy Mild Hives Verified 10/31/17 14:06 Produc Sulfa (Sulfonamide AdvReac Vomiting Verified 10/31/17 14:06 Antibiotics) sumatriptan [From Imitrex] AdvReac Tachycardia Verified 10/31/17 14:06 sumatriptan succinate AdvReac Tachycardia Verified 10/31/17 14:06 [From Imitrex] Home Meds: Home Meds Levothyroxine [Synthroid] 75 mcg PO DAILY 01/14/14 [History] Chlorthalidone 12.5 mg PO DAILY 08/18/17 [History] Past Medical History HEENT History: Reports: None Cardiovascular History: Reports: Hypertension Respiratory History: Reports: Other (See Below) Other Respiratory History: nodule on one lung Gastrointestinal History: Reports: Colon Polyp, GERD Genitourinary History: Reports: 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 Dermatologic History: Reports: None - Infectious Disease History Infectious Disease History: Reports: None - Past Surgical History Head Surgeries/Procedures: Reports: None HEENT Surgical History: Reports: Naso-Sinus Surgery Cardiovascular Surgical History: Reports: None Female Surgical History: Reports: Hysterectomy Neurological Surgical History: Reports: None Musculoskeletal Surgical History: Reports: Other (See Below) Oncologic Surgical History: Reports: None Dermatological Surgical History: Reports: None Social & Family History - Family History Family Medical History: Noncontributory HEENT: Reports: Glaucoma Cardiac: Reports: Aneurysm, Hypertension OBGYN: Reports: Musculoskeletal: Reports: Arthritis Psychiatric: Reports: Bipolar Oncologic: Reports: Lymphoma, Skin - Tobacco Use Smoking Status *Q: Current Every Day Smoker Years of Tobacco use: 30 Packs/Tins Daily: 0.5 Used Tobacco, but Quit: No Second Hand Smoke Exposure: No - Caffeine Use Caffeine Use: Reports: Coffee - Alcohol Use Days Per Week of Alcohol Use: 3 Number of Drinks Per Day: 2 Total Drinks Per Week: 6 - Recreational Drug Use Recreational Drug Use: No Drug Use in Last 12 Months: Yes Recreational Drug Type: Reports: Marijuana/Hashish Recreational Drug Use Frequency: Rarely Recreational Drug Last Use: 06/15/14 Review of Systems - Review of Systems Review Of Systems: ROS reveals no pertinent complaints other than HPI. ED EXAM, GENERAL - Physical Exam Exam: See Below Course - Vital Signs Last Recorded V/S: Last Vital Signs Temp 97.6 F 10/31/17 14:05 Pulse 88 10/31/17 14:05 Resp 16 10/31/17 14:05 BP 173/113 H 10/31/17 14:14 Pulse Ox 98 10/31/17 14:05 Departure - Departure Time of Disposition: 15:27 Disposition: Home, Self-Care 01 Condition: Good Clinical Impression: Contusion - Discharge Information Referrals: PCP,None [Primary Care Provider] - Forms: ED Department Discharge Additional Instructions: Standard head injury precaution Return if symptoms persist or worsen or new concerning symptoms develop Rest Ice 20 minute intervals 3 times daily as needed Ibuprofen 400 mg to 800 mg by mouth 3 times daily 7-10 days Follow-up with primary care in 2 weeks sooner as needed The following information is given to patients seen in the emergency department who are being discharged to home. This information is to outline your options for follow-up care. We provide all patients seen in our emergency department with a follow-up referral. The need for follow-up, as well as the timing and circumstances, are variable depending upon the specifics of your emergency department visit. If you don't have a primary care physician on staff, we will provide you with a referral. We always advise you to contact your personal physician following an emergency department visit to inform them of the circumstance of the visit and for follow-up with them and/or the need for any referrals to a consulting specialist. The emergency department will also refer you to a specialist when appropriate. This referral assures that you have the opportunity for follow-up care with a specialist. All of these measure are taken in an effort to provide you with optimal care, which includes your follow-up. Under all circumstances we always encourage you to contact your private physician who remains a resource for coordinating your care. When calling for follow-up care, please make the office aware that this follow-up is from your recent emergency room visit. If for any reason you are refused follow-up, please contact the [facility] emergency department at and asked to speak to the emergency department charge nurse.
[2017-10-31 15:38] VITALS: BP 110/72
== END 2017-10-31 15:37 | disposition home or self-care (01) ==
LOC: MW.ED 13:54
DX: S00.83XA Contusion of other part of head, initial encounter (principal); I10 Essential (primary) hypertension; F17.210 Nicotine dependence, cigarettes, uncomplicated; Z88.2 Allergy status to sulfonamides; Z88.8 Allergy status to other drugs, medicaments and biological substances; Z79.899 Other long term (current) drug therapy; W20.8XXA Other cause of strike by thrown, projected or falling object, initial encounter
CPT/HCPCS: 73080-26-RT; 73080-RT; 99284-25

== ENCOUNTER 2017-11-15 15:32 | Emergency (ER) | payer MEDICAID, OTHER ==
--- NOTE | 2017-11-15 16:18 | EDM.PDOC ---
ED HPI GENERAL MEDICAL PROBLEM - General Chief Complaint: Respiratory Problem Stated Complaint: COLD AND COUGHING Time Seen by Provider: 11/15/17 15:57 - History of Present Illness INITIAL COMMENTS - FREE TEXT/NARRATIVE: HISTORY AND PHYSICAL: History of present illness: The patient is a 52-year-old female with no cardiac or pulmonary disease and presents with a one-week history of malaise subjective fevers and chills generalized body weakness and 3 days of a cough which is nonproductive. The patient is a tobacco user and says she has had pneumonia in the past and she feels that it is similar in symptomatology. The only time that she thought that she had a fever was yesterday evening but she did not have a thermometer she's been eating and drinking normally. Patient did not follow up with her provider at [facility] because she could not get an appointment for a week and the patient did get her influenza vaccine this year. Patient also complains of a sore throat for the last 3 days which gets aggravated by the cough. Patient is only used [id number] DayQuil and NyQuil as well as ibuprofen for her symptoms. Review of systems: As per history of present illness and below otherwise all systems reviewed and negative. Past medical history: As per history of present illness and as reviewed below otherwise noncontributory. Surgical history: As per history of present illness and as reviewed below otherwise noncontributory. Social history: No reported history of drug or alcohol abuse. Family history: As per history of present illness and as reviewed below otherwise noncontributory. Physical exam: Gen.: Well-developed well-nourished thin female who is nontoxic and vital signs have been reviewed by me. she is not breathless on my evaluation she have a hoarse or muffled voice HEENT: Atraumatic, normocephalic, pupils reactive, negative for conjunctival pallor or scleral icterus, mucous membranes moist, throat clear, neck supple, nontender, trachea midline. There is no cervical adenopathy or nuchal rigidity Lungs: Clear to auscultation, breath sounds equal bilaterally, chest nontender. There is no wheezing stridor or work of breathing Heart: S1S2, regulaR rate and rhythm no overt murmurs Abdomen: Soft, nondistended, nontender. Negative for masses or hepatosplenomegaly. Nabs Pelvis: Stable nontender. Genitourinary: Deferred. Rectal: Deferred. Extremities: Atraumatic, negative for cords or calf pain. Neurovascular unremarkable. Neuro: Awake, alert, oriented. Cranial nerves II through XII unremarkable. Cerebellum unremarkable. Motor and sensory unremarkable throughout. Exam nonfocal. Diagnostics: Chest x-ray rapid strep influenza Therapeutics: sPacer and spacer teaching Patient is aware of all testing results and says she has a Ventolin inhaler at home but needs a spacer area and I told her I will give her cough medicine for sleep as well as a prednisone burst and recommend close follow-up. Impression: Acute bronchitis Definitive disposition and diagnosis as appropriate pending reevaluation and review of above. Sore Throat Pain Score (Numeric/FACES): 4 - Related Data Allergies Allergy/AdvReac Type Severity Reaction Status Date / Time Iodine and Iodide Containing Allergy Mild Hives Verified 11/15/17 16:06 Produc Sulfa (Sulfonamide AdvReac Vomiting Verified 11/15/17 16:06 Antibiotics) sumatriptan [From Imitrex] AdvReac Tachycardia Verified 11/15/17 16:06 sumatriptan succinate AdvReac Tachycardia Verified 11/15/17 16:06 [From Imitrex] Home Meds: Home Meds Levothyroxine [Synthroid] 75 mcg PO DAILY 01/14/14 [History] Chlorthalidone 12.5 mg PO DAILY 08/18/17 [History] Past Medical History HEENT History: Reports: None Cardiovascular History: Reports: Hypertension Respiratory History: Reports: Other (See Below) Other Respiratory History: nodule on one lung Gastrointestinal History: Reports: Colon Polyp, GERD 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 Dermatologic History: Reports: None - Infectious Disease History Infectious Disease History: Reports: None - Past Surgical History Head Surgeries/Procedures: Reports: None HEENT Surgical History: Reports: Naso-Sinus Surgery Cardiovascular Surgical History: Reports: None Female Surgical History: Reports: Hysterectomy Neurological Surgical History: Reports: None Musculoskeletal Surgical History: Reports: Other (See Below) Oncologic Surgical History: Reports: None Dermatological Surgical History: Reports: None Social & Family History - Family History Family Medical History: Noncontributory HEENT: Reports: Glaucoma Cardiac: Reports: Aneurysm, Hypertension OBGYN: Reports: Musculoskeletal: Reports: Arthritis Psychiatric: Reports: Bipolar Oncologic: Reports: Lymphoma, Skin - Tobacco Use Smoking Status *Q: Current Every Day Smoker Years of Tobacco use: 30 Packs/Tins Daily: 0.5 Used Tobacco, but Quit: No Second Hand Smoke Exposure: No - Caffeine Use Caffeine Use: Reports: Coffee - Alcohol Use Days Per Week of Alcohol Use: 3 Number of Drinks Per Day: 2 Total Drinks Per Week: 6 - Recreational Drug Use Recreational Drug Use: No Drug Use in Last 12 Months: Yes Recreational Drug Type: Reports: Marijuana/Hashish Recreational Drug Use Frequency: Rarely Recreational Drug Last Use: 06/15/14 ED ROS GENERAL - Review of Systems Review Of Systems: ROS reveals no pertinent complaints other than HPI. ED EXAM, GENERAL - Physical Exam Exam: See Below (See dictation) Course - Vital Signs Last Recorded V/S: Last Vital Signs Temp 37.2 C 11/15/17 16:08 Pulse 80 11/15/17 16:08 Resp 20 11/15/17 16:08 BP 176/115 H 11/15/17 16:08 Pulse Ox 96 11/15/17 16:08 - Orders/Labs/Meds Orders: Active Orders 24 hr Category Date Time Status Communication Order [RC] STAT Care 11/15/17 17:47 Ordered Chest 2V [CR] Stat Exams 11/15/17 16:12 Taken CULTURE STREP A CONFIRMATION [RM] Stat Lab 11/15/17 16:00 Results STREP SCRN A RAPID W CULT CONF [RM] Stat Lab 11/15/17 16:00 Results Departure - Departure Time of Disposition: 17:48 Disposition: Home, Self-Care 01 Condition: Good Clinical Impression: Acute bronchitis Qualifiers: Bronchitis organism: unspecified organism Qualified Code(s): J20.9 - Acute bronchitis, unspecified - Discharge Information Referrals: PCP,None [Primary Care Provider] - Forms: ED Department Discharge Additional Instructions: The following information is given to patients seen in the emergency department who are being discharged to home. This information is to outline your options for follow-up care. We provide all patients seen in our emergency department with a follow-up referral. The need for follow-up, as well as the timing and circumstances, are variable depending upon the specifics of your emergency department visit. If you don't have a primary care physician on staff, we will provide you with a referral. We always advise you to contact your personal physician following an emergency department visit to inform them of the circumstance of the visit and for follow-up with them and/or the need for any referrals to a consulting specialist. The emergency department will also refer you to a specialist when appropriate. This referral assures that you have the opportunity for followup care with a specialist. All of these measure are taken in an effort to provide you with optimal care, which includes your followup. Under all circumstances we always encourage you to contact your private physician who remains a resource for coordinating your care. When calling for followup care, please make the office aware that this follow-up is from your recent emergency room visit. If for any reason you are refused follow-up, please contact the [facility] emergency department at and ask to speak to the emergency department charge nurse. [facility] Primary care- [place] [address] Please use the Ventolin inhaler you have at home with the spacer you have been given giving yourself 1-2 puffs every 6 hours for the next 24 hours and then 1- 2 puffs every 6 hours as needed. Take prednisone as prescribed and cough medicine to help you sleep. Push hydration and please call and follow-up with one of our clinic providers in the next few days for reevaluation and further care. Return to ER as needed and as discussed - My Orders Last 24 Hours: My Active Orders 11/15/17 16:00 CULTURE STREP A CONFIRMATION [RM] Stat STREP SCRN A RAPID W CULT CONF [RM] Stat 11/15/17 16:12 Chest 2V [CR] Stat 11/15/17 17:47 Communication Order [RC] STAT - Assessment/Plan Last 24 Hours: My Active Orders 11/15/17 16:00 CULTURE STREP A CONFIRMATION [RM] Stat STREP SCRN A RAPID W CULT CONF [RM] Stat 11/15/17 16:12 Chest 2V [CR] Stat 11/15/17 17:47 Communication Order [RC] STAT
[2017-11-15 18:22] VITALS: BP 180/99
--- NOTE | 2017-11-16 16:58 | CR ---
EXAM DATE: 11/15/17 PATIENT'S AGE: 52 Patient: JUSTIN STUBBS Facility: [place], [place] Site . Site : [id number] Study: XRay Chest [id number]/1/2018 5:02:11 PM Ordering Physician: Isac Rocha Final Report: INDICATION: Cough x3 days TECHNIQUE: Chest 2 views. COMPARISON: 08/18/2017 FINDINGS: Cardiovascular and mediastinum: Heart size and vasculature are normal in caliber and appearance. Mediastinum is within normal limits. Lungs and pleural spaces: Lungs are clear. No sign of infiltrate or mass. No sign of pleural effusion. No pneumothorax. Bones and soft tissues: No significant findings. IMPRESSION: No evidence for pneumonia. Dictated by Jonny Ospina MD @ 11/15/2017 5:34:58 PM Dictated by: Jonny Ospina MD @ 11/15/2017 17:35:04 (Electronic Signature) Report Signed by Proxy. DELMIS
== END 2017-11-15 18:15 | disposition home or self-care (01) ==
LOC: MW.ED 15:32
DX: J20.9 Acute bronchitis, unspecified (principal); I10 Essential (primary) hypertension; E03.9 Hypothyroidism, unspecified; F17.210 Nicotine dependence, cigarettes, uncomplicated; Z79.899 Other long term (current) drug therapy; Z88.2 Allergy status to sulfonamides; Z88.8 Allergy status to other drugs, medicaments and biological substances
CPT/HCPCS: 71046; 71046-26; 87081; 87804; 87880; 99283

== ENCOUNTER 2017-12-31 15:16 | Emergency (ER) | payer OTHER ==
--- NOTE | 2017-12-31 15:25 | EDM.PDOC ---
ED HPI GENERAL MEDICAL PROBLEM - General Stated Complaint: FALL Time Seen by Provider: 12/31/17 15:17 - History of Present Illness INITIAL COMMENTS - FREE TEXT/NARRATIVE: HISTORY AND PHYSICAL: History of present illness: Patient 52-year-old female presents status post fall which occurred several days prior to arrival in which she had her head she states she hasn't felt right since states that about headache and hypersomnolence. There's been no vomiting no diarrhea she denies any neck pain denies any chest or abdominal pain or trauma Review of systems: As per history of present illness and below otherwise all systems reviewed and negative. Past medical history: As per history of present illness and as reviewed below otherwise noncontributory. Surgical history: As per history of present illness and as reviewed below otherwise noncontributory. Social history: No reported history of drug or alcohol abuse. Family history: As per history of present illness and as reviewed below otherwise noncontributory. Physical exam: HEENT: Atraumatic, normocephalic, pupils reactive, negative for conjunctival pallor or scleral icterus, mucous membranes moist, throat clear, neck supple, nontender, trachea midline. Lungs: Clear to auscultation, breath sounds equal bilaterally, chest nontender. Heart: S1S2, regular, negative for clicks, rubs, or JVD. Abdomen: Soft, nondistended, nontender. Negative for masses or hepatosplenomegaly. Negative for costovertebral tenderness. Pelvis: Stable nontender. Genitourinary: Deferred. Rectal: Deferred. Extremities: Atraumatic, negative for cords or calf pain. Neurovascular unremarkable. Neuro: Awake, alert, oriented. Cranial nerves II through XII unremarkable. Cerebellum unremarkable. Motor and sensory unremarkable throughout. Exam nonfocal. Diagnostics: CT brain UA Therapeutics: None Impression: #1 fall with head injury Definitive disposition and diagnosis as appropriate pending reevaluation and review of above. - Related Data Allergies Allergy/AdvReac Type Severity Reaction Status Date / Time Iodine and Iodide Containing Allergy Mild Hives Verified 11/15/17 16:06 Produc Sulfa (Sulfonamide AdvReac Vomiting Verified 11/15/17 16:06 Antibiotics) sumatriptan [From Imitrex] AdvReac Tachycardia Verified 11/15/17 16:06 sumatriptan succinate AdvReac Tachycardia Verified 11/15/17 16:06 [From Imitrex] Home Meds: Home Meds Levothyroxine [Synthroid] 75 mcg PO DAILY 01/14/14 [History] Chlorthalidone 12.5 mg PO DAILY 08/18/17 [History] Past Medical History HEENT History: Reports: None Cardiovascular History: Reports: Hypertension Respiratory History: Reports: Other (See Below) Other Respiratory History: nodule on one lung Gastrointestinal History: Reports: Colon Polyp, GERD Genitourinary History: Reports: None 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 Dermatologic History: Reports: None - Infectious Disease History Infectious Disease History: Reports: None - Past Surgical History Head Surgeries/Procedures: Reports: None HEENT Surgical History: Reports: Naso-Sinus Surgery Cardiovascular Surgical History: Reports: None Female Surgical History: Reports: Hysterectomy Neurological Surgical History: Reports: None Musculoskeletal Surgical History: Reports: Other (See Below) Oncologic Surgical History: Reports: None Dermatological Surgical History: Reports: None Social & Family History - Family History Family Medical History: Noncontributory HEENT: Reports: Glaucoma Cardiac: Reports: Aneurysm, Hypertension OBGYN: Reports: Musculoskeletal: Reports: Arthritis Psychiatric: Reports: Bipolar Oncologic: Reports: Lymphoma, Skin - Tobacco Use Smoking Status *Q: Current Every Day Smoker Years of Tobacco use: 30 Packs/Tins Daily: 0.5 Used Tobacco, but Quit: No Second Hand Smoke Exposure: No - Caffeine Use Caffeine Use: Reports: Coffee - Alcohol Use Days Per Week of Alcohol Use: 3 Number of Drinks Per Day: 2 Total Drinks Per Week: 6 - Recreational Drug Use Recreational Drug Use: No Drug Use in Last 12 Months: Yes Recreational Drug Type: Reports: Marijuana/Hashish Recreational Drug Use Frequency: Rarely Recreational Drug Last Use: 06/15/14 ED ROS GENERAL - Review of Systems Review Of Systems: ROS reveals no pertinent complaints other than HPI. ED EXAM, GENERAL - Physical Exam Exam: See Below (See dictation) Course - Vital Signs Last Recorded V/S: Last Vital Signs Temp 38.2 C H 12/31/17 17:00 Pulse 100 12/31/17 17:00 Resp 18 12/31/17 17:00 BP 128/72 12/31/17 17:00 Pulse Ox 98 12/31/17 17:00 - Orders/Labs/Meds Orders: Active Orders 24 hr Category Date Time Status Chest 2V [CR] Stat Exams 12/31/17 15:26 Taken Head wo Cont [CT] Stat Exams 12/31/17 15:26 Taken CULTURE BLOOD [BC] Stat Lab 12/31/17 15:35 Received CULTURE BLOOD [BC] Stat Lab 12/31/17 15:46 Received CULTURE URINE [RM] Stat Lab 12/31/17 16:15 Received Levofloxacin/Dextrose 5%-Water [Levaquin in D5W 750 MG/ Med 12/31/17 17:04 Active 150 ML] 750 mg Premix Bag 1 bag IV ONETIME Blood Culture x2 Reflex Set [OM.PC] Stat Oth 12/31/17 15:26 Ordered Medication Orders Levofloxacin/Dextrose 750 mg/ (Premix) 150 mls @ 100 mls/hr IV ONETIME ONE Stop: 12/31/17 18:33 Last Admin: 12/31/17 17:21 Dose: 100 mls/hr Labs: Laboratory Tests 12/31/17 12/31/17 12/31/17 Range/Units 15:35 15:35 16:15 WBC 11.61 H (4.0-11.0) K/uL RBC 4.06 L (4.30-5.90) M/uL Hgb 13.5 (12.0-16.0) g/dL Hct 39.4 (36.0-46.0) % MCV 97.0 (80.0-98.0) fL MCH 33.3 H (27.0-32.0) pg MCHC 34.3 (31.0-37.0) g/dL RDW Std Deviation 47.6 (28.0-62.0) fl RDW Coeff of Fidencio 13 (11.0-15.0) % Plt Count 161 (150-400) K/uL MPV 10.40 (7.40-12.00) fL Add Manual Diff YES Neutrophils % (Manual) 76 (48.0-80.0) % Band Neutrophils % 2 % Lymphocytes % (Manual) 14 L (16.0-40.0) % Monocytes % (Manual) 7 (0.0-15.0) % Eosinophils % (Manual) 1 (0.0-7.0) % Nucleated RBC % 0.0 /100WBC Absolute Seg Neuts 8.8 H (1.4-5.7) Band Neutrophils # 0.2 Lymphocytes # (Manual) 1.6 (0.6-2.4) Monocytes # (Manual) 0.8 (0.0-0.8) Eosinophils # (Manual) 0.1 (0.0-0.7) Nucleated RBCs # 0 K/uL Sodium 128 L (136-145) mmol/L Potassium 3.9 (3.5-5.1) mmol/L Chloride 92 L (98-107) mmol/L Carbon Dioxide 27.0 (21.0-32.0) mmol/L BUN 20 H (7.0-18.0) mg/dL Creatinine 1.2 H (0.6-1.0) mg/dL Est Cr Clr Drug Dosing 47.26 mL/min Estimated GFR (MDRD) 47.4 ml/min Glucose 104 (74-106) mg/dL Calcium 9.0 (8.5-10.1) mg/dL Total Bilirubin 0.5 (0.2-1.0) mg/dL AST 21 (15-37) IU/L ALT 17 (14-63) IU/L Alkaline Phosphatase 87 (46-116) U/L Total Protein 7.8 (6.4-8.2) g/dL Albumin 3.2 L (3.4-5.0) g/dL Globulin 4.6 H (2.0-3.5) g/dL Albumin/Globulin Ratio 0.7 L (1.3-2.8) Urine Color YELLOW Urine Appearance CLEAR Urine pH 6.0 (5.0-8.0) Ur Specific [place] 1.010 (1.001-1.035) Urine Protein 30 (NEGATIVE) mg/dL Urine Glucose (UA) NEGATIVE (NEGATIVE) mg/dL Urine Ketones TRACE H (NEGATIVE) mg/dL Urine Occult Blood SMALL H (NEGATIVE) Urine Nitrite NEGATIVE (NEGATIVE) Urine Bilirubin NEGATIVE (NEGATIVE) Urine Urobilinogen 0.2 (<2.0) EU/dL Ur Leukocyte Esterase SMALL (NEGATIVE) Urine RBC 1-2 (0-2/HPF) Urine WBC 10-12 (0-5/HPF) Ur Epithelial Cells OCCASIONAL (NONE-FEW) Urine Bacteria RARE (NEGATIVE) Meds: Medications Generic Name Dose Route Start Last Admin Trade Name Freq PRN Reason Stop Dose Admin Levofloxacin/Dextrose 750 mg/ 150 mls @ 100 mls/hr 12/31/17 17:04 12/31/17 17 :21 Premix IV 12/31/17 18:33 100 mls/hr ONETIME ONE Administration Discontinued Medications Generic Name Dose Route Start Last Admin Trade Name Freq PRN Reason Stop Dose Admin Acetaminophen 650 mg 12/31/17 15:26 12/31/17 15:57 Tylenol PO 12/31/17 15:27 650 mg NOW ONE Administration Sodium Chloride 1,000 mls @ 999 mls/hr 12/31/17 15:26 12/31/17 16:10 Normal Saline IV 12/31/17 16:26 Not Given STAT ONE Lactated Ringer's 1,000 mls @ 999 mls/hr 12/31/17 15:47 12/31/17 15:55 Ringers, Lactated IV 12/31/17 16:47 999 mls/hr .BOLUS ONE Administration Departure - Departure Time of Disposition: 18:07 Disposition: Home, Self-Care 01 Condition: Good Clinical Impression: Fever, UTI (urinary tract infection), Head injury - Discharge Information Referrals: PCP,None [Primary Care Provider] - Additional Instructions: The following information is given to patients seen in the emergency department who are being discharged to home. This information is to outline your options for follow-up care. We provide all patients seen in our emergency department with a follow-up referral. The need for follow-up, as well as the timing and circumstances, are variable depending upon the specifics of your emergency department visit. If you don't have a primary care physician on staff, we will provide you with a referral. We always advise you to contact your personal physician following an emergency department visit to inform them of the circumstance of the visit and for follow-up with them and/or the need for any referrals to a consulting specialist. The emergency department will also refer you to a specialist when appropriate. This referral assures that you have the opportunity for followup care with a specialist. All of these measure are taken in an effort to provide you with optimal care, which includes your followup. Under all circumstances we always encourage you to contact your private physician who remains a resource for coordinating your care. When calling for followup care, please make the office aware that this follow-up is from your recent emergency room visit. If for any reason you are refused follow-up, please contact the [facility] emergency department at and asked to speak to the emergency department charge nurse. Levaquin as prescribed follow-up primary medical doctor call to schedule routine appointment push fluids Motrin/Tylenol as directed return as needed as discussed - My Orders Last 24 Hours: My Active Orders 12/31/17 15:26 Chest 2V [CR] Stat Head wo Cont [CT] Stat Blood Culture x2 Reflex Set [OM.PC] Stat 12/31/17 15:35 CULTURE BLOOD [BC] Stat 12/31/17 15:46 CULTURE BLOOD [BC] Stat 12/31/17 16:15 CULTURE URINE [RM] Stat 12/31/17 17:04 Levofloxacin/Dextrose 5%-Water [Levaquin in D5W 750 MG/150 ML] 750 mg Premix Bag 1 bag IV ONETIME - Assessment/Plan Last 24 Hours: My Active Orders 12/31/17 15:26 Chest 2V [CR] Stat Head wo Cont [CT] Stat Blood Culture x2 Reflex Set [OM.PC] Stat 12/31/17 15:35 CULTURE BLOOD [BC] Stat 12/31/17 15:46 CULTURE BLOOD [BC] Stat 12/31/17 16:15 CULTURE URINE [RM] Stat 12/31/17 17:04 Levofloxacin/Dextrose 5%-Water [Levaquin in D5W 750 MG/150 ML] 750 mg Premix Bag 1 bag IV ONETIME
[2017-12-31] MEDS ORDERED: Acetaminophen 325 MG Tab PO ONE (15:26)
[2017-12-31] MEDS ORDERED: Sodium Chloride 0.9% 1,000 ML IV ONE (15:26)
[2017-12-31] MEDS ORDERED: Lactated Ringers 1,000 ML IV ONE (15:47)
[2017-12-31] MEDS ORDERED: Levofloxacin/Dextrose 5%-Water 750 MG in Premix Bag 1 BAG IV ONE (17:04)
[2017-12-31 18:55] VITALS: BP 143/98
--- NOTE | 2018-01-01 09:53 | CR ---
EXAM DATE: 12/31/17 PATIENT'S AGE: 52 Patient: JUSTIN STUBBS Facility: [place], [place] Site . Site : 1965 Study: XRay Chest [id number]/19/2018 5:04:30 PM Ordering Physician: Alhaji Rowley Final Report: Indication: Recent fall. Technique: PA and lateral views. Comparison: 11/15/2017. Findings: Normal cardiac, mediastinal and hilar contours. Normal pulmonary vasculature. Mild biapical scarring. Lungs otherwise appear clear. No pleural fluid or pneumothorax. No acute bony abnormality is identified. Impression: No signs of an acute traumatic thoracic injury. Dictated by Mika Mace MD @ 12/31/2017 5:29:11 PM Dictated by: Mika Mace MD @ 12/31/2017 17:29:22 (Electronic Signature) Report Signed by Proxy. [facility]
--- NOTE | 2018-01-01 09:53 | CT ---
EXAM DATE: 12/31/17 PATIENT'S AGE: 52 Patient: JUSTIN STUBBS Facility: [place], [place] Site . Site : 1965 Study: CT Head [id number]/19/2018 5:06:51 PM Ordering Physician: Alhaji Rowley Final Report: INDICATION: Trauma. Dizziness. Nausea TECHNIQUE: Non-contrast CT of the head is submitted. No comparisons. FINDINGS: The ventricles, sulci and gyri are of normal size, shape and contour. Midline structures are centrally located. No convincing evidence of intra- or extra- axial fluid collections. IMPRESSION: 1. No radiographic evidence of acute intracranial abnormalities. Dictated by Xavier Bey MD @ 12/31/2017 5:09:11 PM Please note that all CT scans at this facility use dose modulation, iterative reconstruction, and/or weight-based dosing when appropriate to reduce radiation dose to as low as reasonably achievable. Dictated by: Xavier Bey MD @ 12/31/2017 17:09:27 (Electronic Signature) Report Signed by Proxy. [facility]
== END 2017-12-31 18:55 | disposition home or self-care (01) ==
LOC: MW.ED 15:16
DX: S09.90XA Unspecified injury of head, initial encounter (principal); N39.0 Urinary tract infection, site not specified; I10 Essential (primary) hypertension; E03.9 Hypothyroidism, unspecified; F17.210 Nicotine dependence, cigarettes, uncomplicated; Z88.2 Allergy status to sulfonamides; Z88.8 Allergy status to other drugs, medicaments and biological substances; Z91.041 Radiographic dye allergy status; Z79.899 Other long term (current) drug therapy; W19.XXXA Unspecified fall, initial encounter
CPT/HCPCS: 36415; 70450; 71046; 80053; 81001; 85025; 87040; 87086; 87804; 96361; 96365; 99284; A9270; J1956; J7120; 87077; 87088; 87186; 99283

== ENCOUNTER 2018-01-01 08:10 | Observation (INO) | payer OTHER ==
--- NOTE | 2018-01-01 08:18 | EDM.PDOC ---
ED HPI GENERAL MEDICAL PROBLEM - General Stated Complaint: PER PT, FOUND SOMETHING IN HER BLOOD Time Seen by Provider: 01/01/18 08:18 Source of Information: Reports: Patient - History of Present Illness INITIAL COMMENTS - FREE TEXT/NARRATIVE: HISTORY AND PHYSICAL: History of present illness: [Patient was in yesterday with UTI symptoms started on Levaquin 750 mg IV Did have a blocked positive blood culture which grew Escherichia coli She was called in by Dr. Garcia who For admit observation No fever nausea vomiting chills sweats ] Review of systems: As per history of present illness and below otherwise all systems reviewed and negative. Past medical history: As per history of present illness and as reviewed below otherwise noncontributory. Surgical history: As per history of present illness and as reviewed below otherwise noncontributory. Social history: No reported history of drug or alcohol abuse. Family history: As per history of present illness and as reviewed below otherwise noncontributory. Physical exam: HEENT: Atraumatic, normocephalic, pupils reactive, negative for conjunctival pallor or scleral icterus, mucous membranes moist, throat clear, neck supple, nontender, trachea midline. Lungs: Clear to auscultation, breath sounds equal bilaterally, chest nontender. Heart: S1S2, regular, negative for clicks, rubs, or JVD. Abdomen: Soft, nondistended, nontender. Negative for masses or hepatosplenomegaly. Negative for costovertebral tenderness. Pelvis: Stable nontender. Genitourinary: Deferred. Rectal: Deferred. Extremities: Atraumatic, negative for cords or calf pain. Neurovascular unremarkable. Neuro: Awake, alert, oriented. Cranial nerves II through XII unremarkable. Cerebellum unremarkable. Motor and sensory unremarkable throughout. Exam nonfocal. Diagnostics: [CBC CMP UA ] Therapeutics: [Levaquin 750 mg IV ] Impression: [Fever resolved Leukocytosis resolved Blood culture positive Escherichia coli growth Sepsis] Definitive disposition and diagnosis as appropriate pending reevaluation and review of above. Head Pain Score (Numeric/FACES): 6 Pelvic Pain Score (Numeric/FACES): 6 - Related Data Allergies Allergy/AdvReac Type Severity Reaction Status Date / Time Iodine and Iodide Containing Allergy Mild Hives Verified 01/01/18 08:24 Produc Sulfa (Sulfonamide AdvReac Vomiting Verified 01/01/18 08:24 Antibiotics) sumatriptan [From Imitrex] AdvReac Tachycardia Verified 01/01/18 08:24 sumatriptan succinate AdvReac Tachycardia Verified 01/01/18 08:24 [From Imitrex] Home Meds: Home Meds Levothyroxine [Synthroid] 75 mcg PO DAILY 01/14/14 [History] Chlorthalidone 12.5 mg PO DAILY 08/18/17 [History] Past Medical History HEENT History: Reports: None Cardiovascular History: Reports: Hypertension Respiratory History: Reports: Other (See Below) Other Respiratory History: nodule on one lung Gastrointestinal History: Reports: Colon Polyp, GERD Genitourinary History: Reports: None Other Genitourinary History: recurrent bacterial vaginitis 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 Dermatologic History: Reports: None - Infectious Disease History Infectious Disease History: Reports: None - Past Surgical History Head Surgeries/Procedures: Reports: None HEENT Surgical History: Reports: Naso-Sinus Surgery Cardiovascular Surgical History: Reports: None Female Surgical History: Reports: Hysterectomy Neurological Surgical History: Reports: None Musculoskeletal Surgical History: Reports: Other (See Below) Oncologic Surgical History: Reports: None Dermatological Surgical History: Reports: None Social & Family History - Family History Family Medical History: Noncontributory HEENT: Reports: Glaucoma Cardiac: Reports: Aneurysm, Hypertension OBGYN: Reports: Musculoskeletal: Reports: Arthritis Psychiatric: Reports: Bipolar Oncologic: Reports: Lymphoma, Skin - Tobacco Use Smoking Status *Q: Current Every Day Smoker Years of Tobacco use: 30 Packs/Tins Daily: 0.5 Used Tobacco, but Quit: No Second Hand Smoke Exposure: No - Caffeine Use Caffeine Use: Reports: Coffee - Alcohol Use Days Per Week of Alcohol Use: 3 Number of Drinks Per Day: 2 Total Drinks Per Week: 6 - Recreational Drug Use Recreational Drug Use: No Drug Use in Last 12 Months: Yes Recreational Drug Type: Reports: Marijuana/Hashish Recreational Drug Use Frequency: Rarely Recreational Drug Last Use: 06/15/14 ED ROS GENERAL - Review of Systems Review Of Systems: ROS reveals no pertinent complaints other than HPI. ED EXAM, GENERAL - Physical Exam Exam: See Below Course - Vital Signs Last Recorded V/S: Last Vital Signs Temp 99.8 F 01/01/18 08:32 Pulse 72 01/01/18 08:32 Resp 18 01/01/18 08:32 BP 128/83 01/01/18 08:32 Pulse Ox 98 01/01/18 08:32 - Orders/Labs/Meds Orders: Active Orders 24 hr Category Date Time Status LACTIC ACID,WHOLE BLOOD [BG] Stat Lab 01/01/18 09:06 Ordered UA W/MICROSCOPIC [URIN] Stat Lab 01/01/18 08:52 Ordered Lactated Ringers [Ringers, Lactated] 1,000 ml Med 01/01/18 08:45 Active IV ASDIRECTED Medication Orders Lactated Ringer's (Ringers, Lactated) 1,000 mls @ 125 mls/hr IV ASDIRECTED HARDIK Last Admin: 01/01/18 08:45 Dose: 125 mls/hr Labs: Laboratory Tests 01/01/18 01/01/18 Range/Units 08:31 08:31 WBC 8.18 (4.0-11.0) K/uL RBC 4.10 L (4.30-5.90) M/uL Hgb 13.6 (12.0-16.0) g/dL Hct 39.6 (36.0-46.0) % MCV 96.6 (80.0-98.0) fL MCH 33.2 H (27.0-32.0) pg MCHC 34.3 (31.0-37.0) g/dL RDW Std Deviation 46.8 (28.0-62.0) fl RDW Coeff of Fidencio 13 (11.0-15.0) % Plt Count 168 (150-400) K/uL MPV 11.00 (7.40-12.00) fL Neut % (Auto) 77.4 (48.0-80.0) % Lymph % (Auto) 13.3 L (16.0-40.0) % [place] % (Auto) 9.2 (0.0-15.0) % Eos % (Auto) 0.0 (0.0-7.0) % Baso % (Auto) 0.1 (0.0-1.5) % Neut # (Auto) 6.3 H (1.4-5.7) K/uL Lymph # (Auto) 1.1 (0.6-2.4) K/uL [place] # (Auto) 0.8 (0.0-0.8) K/uL Eos # (Auto) 0.0 (0.0-0.7) K/uL Baso # (Auto) 0.0 (0.0-0.1) K/uL Nucleated RBC % 0.0 /100WBC Nucleated RBCs # 0 K/uL Sodium 132 L (136-145) mmol/L Potassium 3.5 (3.5-5.1) mmol/L Chloride 94 L (98-107) mmol/L Carbon Dioxide 26.3 (21.0-32.0) mmol/L BUN 15 (7.0-18.0) mg/dL Creatinine 1.1 H (0.6-1.0) mg/dL Est Cr Clr Drug Dosing 49.29 mL/min Estimated GFR (MDRD) 52.4 ml/min Glucose 104 (74-106) mg/dL Calcium 9.1 (8.5-10.1) mg/dL Total Bilirubin 0.3 (0.2-1.0) mg/dL AST 24 (15-37) IU/L ALT 20 (14-63) IU/L Alkaline Phosphatase 81 (46-116) U/L Total Protein 7.6 (6.4-8.2) g/dL Albumin 3.0 L (3.4-5.0) g/dL Globulin 4.6 H (2.0-3.5) g/dL Albumin/Globulin Ratio 0.7 L (1.3-2.8) Meds: Medications Generic Name Dose Route Start Last Admin Trade Name Freq PRN Reason Stop Dose Admin Lactated Ringer's 1,000 mls @ 125 mls/hr 01/01/18 08:45 01/01/18 08:45 Ringers, Lactated IV 125 mls/hr ASDIRECTED HARDIK Administration Discontinued Medications Generic Name Dose Route Start Last Admin Trade Name Freq PRN Reason Stop Dose Admin Sodium Chloride 1,000 mls @ 125 mls/hr 01/01/18 08:30 Normal Saline IV STAT HARDIK Departure - Departure Time of Disposition: 09:09 Disposition: Refer to Observation Condition: Fair Clinical Impression: Positive blood culture - Discharge Information Referrals: Rafi Lobato MD [Primary Care Provider] - - My Orders Last 24 Hours: My Active Orders 01/01/18 08:45 Lactated Ringers [Ringers, Lactated] 1,000 ml IV ASDIRECTED 01/01/18 08:52 UA W/MICROSCOPIC [URIN] Stat 01/01/18 09:06 LACTIC ACID,WHOLE BLOOD [BG] Stat - Assessment/Plan Last 24 Hours: My Active Orders 01/01/18 08:45 Lactated Ringers [Ringers, Lactated] 1,000 ml IV ASDIRECTED 01/01/18 08:52 UA W/MICROSCOPIC [URIN] Stat 01/01/18 09:06 LACTIC ACID,WHOLE BLOOD [BG] Stat
[2018-01-01] MEDS ORDERED: Sodium Chloride 0.9% 1,000 ML IV SCH (08:30)
[2018-01-01] MEDS ORDERED: Lactated Ringers 1,000 ML IV SCH (08:45)
[2018-01-01] MEDS ORDERED: Levofloxacin/Dextrose 5%-Water 750 MG in Premix Bag 1 BAG IV ONE (09:10)
--- NOTE | 2018-01-01 09:12 | PCM.HP ---
H&P History of Present Illness - General Date of Service: 01/01/18 Admit Problem/Dx: UTI Suspected Pyleonephritis. Source of Information: Patient History Limitations: Reports: No Limitations - History of Present Illness Initial Comments - Free Text/Narative: 52-year-old female presenting to emergency department with chief complaint of fever, chills, nausea, vomiting with recent diagnosis of UTI with past medical history hypothyroidism and hypertension. Patient presented in the emergency department initially on 12/31/17 rand was diagnosed with a UTI. At that time she did have mild leukocytosis and was discharged with Levaquin by mouth. Patient returns to emergency department after being called for positive blood cultures from previous day in the emergency department. Patient states that she initially started feeling ill this past weekend. She has had urinary tract infections before but this seemed much worse. She had fever, chills, nausea, vomiting and felt generally fatigued with diaphoresis and "kidney pain" all weekend.. She denies any hematuria but has also had some lower back pain. She denies any history of renal stones or pyelonephritis. Patient currently denies any chest pain, palpitations, shortness of breath, syncopal episodes, visits. Emergency department: CBC unremarkable, lactate normal, mild hyponatremia at 132, mildly elevated creatinine 1.1. Urinalysis positive for UTI. She was given Zofran 8 mg IV 1, Levaquin 750 mg, and acetaminophen 1000 mg by mouth. Hemodynamically stable. Patient was admitted for UTI suspected pyelonephritis. PCP Dr. Lobato. Improves with: Reports: None Worsens with: Reports: None Associated Symptoms: Reports: No Other Symptoms Head Pain Score (Numeric/FACES): 6 Pelvic Pain Score (Numeric/FACES): 6 - Related Data Allergies/Adverse Reactions: Allergies Allergy/AdvReac Type Severity Reaction Status Date / Time Iodine and Iodide Containing Allergy Mild Hives Verified 01/01/18 08:24 Produc Sulfa (Sulfonamide AdvReac Vomiting Verified 01/01/18 08:24 Antibiotics) sumatriptan [From Imitrex] AdvReac Tachycardia Verified 01/01/18 08:24 sumatriptan succinate AdvReac Tachycardia Verified 01/01/18 08:24 [From Imitrex] Home Medications: Home Meds Levothyroxine [Synthroid] 75 mcg PO DAILY 01/14/14 [History] Chlorthalidone 12.5 mg PO DAILY 08/18/17 [History] Past Medical History HEENT History: Reports: None Cardiovascular History: Reports: Hypertension Respiratory History: Reports: Other (See Below) Other Respiratory History: nodule on one lung Gastrointestinal History: Reports: Colon Polyp, GERD Genitourinary History: Reports: None Other Genitourinary History: recurrent bacterial vaginitis [employer] History: Reports: 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 Dermatologic History: Reports: None - Infectious Disease History Infectious Disease History: Reports: None - Past Surgical History Head Surgeries/Procedures: Reports: None HEENT Surgical History: Reports: Naso-Sinus Surgery Cardiovascular Surgical History: Reports: None Female Surgical History: Reports: Hysterectomy Neurological Surgical History: Reports: None Musculoskeletal Surgical History: Reports: Other (See Below) Oncologic Surgical History: Reports: None Dermatological Surgical History: Reports: None Social & Family History - Family History Family Medical History: Noncontributory HEENT: Reports: Glaucoma Cardiac: Reports: Aneurysm, Hypertension OBGYN: Reports: Musculoskeletal: Reports: Arthritis Psychiatric: Reports: Bipolar Oncologic: Reports: Lymphoma, Skin - Tobacco Use Smoking Status *Q: Current Every Day Smoker Years of Tobacco use: 30 Packs/Tins Daily: 0.5 Used Tobacco, but Quit: No Second Hand Smoke Exposure: No - Caffeine Use Caffeine Use: Reports: Coffee - Alcohol Use Days Per Week of Alcohol Use: 3 Number of Drinks Per Day: 2 Total Drinks Per Week: 6 - Recreational Drug Use Recreational Drug Use: No Drug Use in Last 12 Months: Yes Recreational Drug Type: Reports: Marijuana/Hashish Recreational Drug Use Frequency: Rarely Recreational Drug Last Use: 06/15/14 H&P Review of Systems - Review of Systems: Review Of Systems: See Below General: Reports: Fever, Chills, Malaise, Fatigue, Diaphoresis HEENT: Denies: Headaches, Sore Throat Pulmonary: Denies: Shortness of Breath, Wheezing, Pleuritic Chest Pain, Cough, Sputum Cardiovascular: Denies: Chest Pain, Palpitations, Lightheadedness, Syncope Gastrointestinal: Reports: Nausea, Vomiting. Denies: Abdominal Pain, Black Stool, Bloody Stool, Diarrhea Genitourinary: Reports: Dysuria, Pain, Urgency, Flank Pain. Denies: Hematuria Musculoskeletal: Denies: Neck Pain, Leg Pain Skin: Denies: Cyanosis Psychiatric: Denies: Confusion Neurological: Denies: Confusion, Dizziness, Headache Hematologic/Lymphatic: Denies: Anemia Immunologic: Denies: Anaphylaxis Exam - Exam Exam: See Below - Vital Signs Vital Signs: Last Vital Signs Temp 99.8 F 01/01/18 08:32 Pulse 72 01/01/18 08:32 Resp 18 01/01/18 08:32 BP 128/83 01/01/18 08:32 Pulse Ox 98 01/01/18 08:32 Weight: 51.6 kg - Exam Quality Assessment: DVT Prophylaxis General: Alert, Oriented, Cooperative HEENT: Conjunctiva Clear, EACs Clear, EOMI, Hearing Intact, Mucosa Moist & [place] , Nares Patent, Normal Nasal Septum, Posterior Pharynx Clear, PERRLA Neck: Supple, Trachea Midline, 2 Lungs: Clear to Auscultation, Normal Respiratory Effort Cardiovascular: Regular Rate, Regular Rhythm, Normal S1, Normal S2 GI/Abdominal Exam: Normal Bowel Sounds, Soft, Non-Tender, No Organomegaly, No Distention (Female) Exam: Deferred Rectal (Female) Exam: Deferred Back Exam: Normal Inspection, Paraspinal Tenderness. No: CVA Tenderness (L), CVA Tenderness (R) Extremities: Normal Inspection, Non-Tender, No Pedal Edema, Normal Capillary Refill Peripheral Pulses: 2+: Radial (L), Radial (R), Posterior Tibial (L), Posterior Tibial (R), Dorsalis Pedis (L), Dorsalis Pedis (R) Skin: Warm, Dry, Intact Neurological: Cranial Nerves Intact Neuro Extensive - Mental Status: Alert, Oriented x3, Normal Mood/Affect, Normal Cognition Neuro Extensive - Motor, Sensory, Reflexes: CN II-XII Intact Psychiatric: Alert, Normal Affect, Normal Mood - Patient Data Lab Results Last 24 hrs: Laboratory Results - last 24 hr 01/01/18 01/01/18 Range/Units 08:31 08:31 WBC 8.18 (4.0-11.0) K/uL RBC 4.10 L (4.30-5.90) M/uL Hgb 13.6 (12.0-16.0) g/dL Hct 39.6 (36.0-46.0) % MCV 96.6 (80.0-98.0) fL MCH 33.2 H (27.0-32.0) pg MCHC 34.3 (31.0-37.0) g/dL RDW Std Deviation 46.8 (28.0-62.0) fl RDW Coeff of Fidencio 13 (11.0-15.0) % Plt Count 168 (150-400) K/uL MPV 11.00 (7.40-12.00) fL Neut % (Auto) 77.4 (48.0-80.0) % Lymph % (Auto) 13.3 L (16.0-40.0) % [place] % (Auto) 9.2 (0.0-15.0) % Eos % (Auto) 0.0 (0.0-7.0) % Baso % (Auto) 0.1 (0.0-1.5) % Neut # (Auto) 6.3 H (1.4-5.7) K/uL Lymph # (Auto) 1.1 (0.6-2.4) K/uL [place] # (Auto) 0.8 (0.0-0.8) K/uL Eos # (Auto) 0.0 (0.0-0.7) K/uL Baso # (Auto) 0.0 (0.0-0.1) K/uL Nucleated RBC % 0.0 /100WBC Nucleated RBCs # 0 K/uL Sodium 132 L (136-145) mmol/L Potassium 3.5 (3.5-5.1) mmol/L Chloride 94 L (98-107) mmol/L Carbon Dioxide 26.3 (21.0-32.0) mmol/L BUN 15 (7.0-18.0) mg/dL Creatinine 1.1 H (0.6-1.0) mg/dL Est Cr Clr Drug Dosing 49.29 mL/min Estimated GFR (MDRD) 52.4 ml/min Glucose 104 (74-106) mg/dL Calcium 9.1 (8.5-10.1) mg/dL Total Bilirubin 0.3 (0.2-1.0) mg/dL AST 24 (15-37) IU/L ALT 20 (14-63) IU/L Alkaline Phosphatase 81 (46-116) U/L Total Protein 7.6 (6.4-8.2) g/dL Albumin 3.0 L (3.4-5.0) g/dL Globulin 4.6 H (2.0-3.5) g/dL Albumin/Globulin Ratio 0.7 L (1.3-2.8) Result Diagrams: 01/01/18 08:31 01/01/18 08:31 *Q Meaningful Use (ADM) - VTE *Q VTE Criteria *Q: - Stroke *Q Stroke Criteria *Q: - AMI *Q AMI Criteria *Q: - Problem List (1) Pyelonephritis SNOMED Code(s): 93090244 ICD Code: N12 - TUBULO-INTERSTITIAL NEPHRITIS, NOT SPCF ACUTE OR CHRONIC Status: Suspected Priority: High Current Visit: Yes (2) Gram-negative bacteremia SNOMED Code(s): 172437176309 ICD Code: R78.81 - BACTEREMIA Status: Suspected Priority: High Current Visit: Yes (3) Hypertension SNOMED Code(s): 42499984 ICD Code: I10 - ESSENTIAL (PRIMARY) HYPERTENSION Status: Chronic Priority : Medium Current Visit: Yes Qualifiers: Hypertension type: essential hypertension Qualified Code(s): I10 - Essential (primary) hypertension (4) Hypothyroid SNOMED Code(s): 22525843 ICD Code: E03.9 - HYPOTHYROIDISM, UNSPECIFIED Status: Chronic Priority: Medium Current Visit: Yes Qualifiers: Hypothyroidism type: unspecified Qualified Code(s): E03.9 - Hypothyroidism , unspecified (5) UTI (urinary tract infection) SNOMED Code(s): 10172547 ICD Code: N39.0 - URINARY TRACT INFECTION, SITE NOT SPECIFIED Status: Acute Priority: High Current Visit: Yes Qualifiers: Urinary tract infection type: acute cystitis Hematuria presence: without hematuria Qualified Code(s): N30.00 - Acute cystitis without hematuria Problem List Initiated/Reviewed/Updated: Yes Orders Last 24hrs: Active Orders 24 hr Category Date Time Status LACTIC ACID,WHOLE BLOOD [BG] Stat Lab 01/01/18 09:06 Ordered UA W/MICROSCOPIC [URIN] Stat Lab 01/01/18 08:52 Ordered Lactated Ringers [Ringers, Lactated] 1,000 ml Med 01/01/18 08:45 Active IV ASDIRECTED Levofloxacin/Dextrose 5%-Water [Levaquin in D5W 750 MG/ Med 01/01/18 09:10 Active 150 ML] 750 mg Premix Bag 1 bag IV ONETIME Medication Orders Lactated Ringer's (Ringers, Lactated) 1,000 mls @ 125 mls/hr IV ASDIRECTED HARDIK Last Admin: 01/01/18 08:45 Dose: 125 mls/hr Levofloxacin/Dextrose 750 mg/ (Premix) 150 mls @ 100 mls/hr IV ONETIME ONE Stop: 01/01/18 10:39 Assessment/Plan Comment:: 52-year-old female admitted 01/01/18 for acute cystitis and suspected pyelonephritis/gram-negative bacteremia with past medical history of hypertension and hypothyroidism. Acute cystitis/pyelonephritis/gram-negative bacteremia: 2 out of 4 tubes positive for gram-negative rods. Patient hemodynamically stable. No white count at this time. We'll treat with Levaquin IV 750 mg and wait for blood culture findings. IVF resus for KENN most likely secondary to dehydration. We'll watch closely for any leukocytosis and continued fevers and broaden spectrum if needed. Renal ultrasound showed multiple tiny echogenic foci within the kidneys bilaterally. Etiology was uncertain however it was that they could represent early nephrolithiasis. Did talk to Dr. Steen, radiologist, who recommended MRI for further investigation. Hypertension: Currently hemodynamically stable will resume home meds but watch for hypotension related to possible sepsis and hold if needed. Hypothyroidism: Stable cont. home meds. VTE: Lovenox, SCD Dispo: 1-2 days pending.
[2018-01-01] MEDS ORDERED: Morphine 2 MG/ML Syringe IVPUSH ONE (09:14)
[2018-01-01] MEDS ORDERED: Ondansetron 4 MG/2 ML SDV IVPUSH ONE (09:14)
[2018-01-01] MEDS ORDERED: Piperacillin/Tazobactam 3.375 GM in Sodium Chloride 0.9% 50 ML IV ONE (10:16)
[2018-01-01] MEDS ORDERED: Acetaminophen 500 MG Tab ONE (10:17)
[2018-01-01] MEDS ORDERED: Acetaminophen 500 MG Tab PO ONE (10:19)
[2018-01-01] MEDS ORDERED: Acetaminophen 325 MG Tab PO PRN (10:48)
[2018-01-01] MEDS ORDERED: Ondansetron 4 MG/2 ML SDV IVPUSH PRN (10:48)
[2018-01-01] MEDS ORDERED: Ondansetron 4 MG Tab.DIS PO PRN (10:48)
[2018-01-01] MEDS: Enoxaparin 40 MG/0.4 ML Syringe SUBCUT SCH (11:21)
[2018-01-01] MEDS: Lactated Ringers 1,000 ML IV SCH ×2 (11:24→17:56)
[2018-01-01] MEDS: Morphine 2 MG/ML Syringe IVPUSH PRN ×2 (11:31→13:45)
--- NOTE | 2018-01-01 12:50 | US ---
EXAMINATION: Renal ultrasound HISTORY: Flank pain COMPARISON: CT dated 01/01/2016 TECHNIQUE: Grayscale and color Doppler images obtained of the kidneys and bladder. FINDINGS: The right kidney measures at least 12.7 cm and the left kidney measures at least 12 cm pole -to-pole without evidence of hydronephrosis. Multiple tiny echogenic nonshadowing foci are noted with in the medullary and cortical regions bilaterally. There is normal color Doppler flow. The urinary bladder appears normal. IMPRESSION: 1. Multiple tiny echogenic foci within the kidneys bilaterally. Etiology is uncertain however these c ould represent early nephrolithiasis.
[2018-01-01] MEDS: HYDROmorphone 1 MG/ML Syringe IVPUSH PRN ×4 (16:06→23:07)
[2018-01-01] MEDS ORDERED: diphenhydrAMINE 50 MG/ML SDV IVPUSH ONE (19:51)
[2018-01-01] MEDS ORDERED: Nicotine 7 MG/24 Hr Patch TRDERM PRN (19:52)
[2018-01-01] MEDS ORDERED: Gadobenate Dimeglumine 529 MG/ML 20 ML SDV IVPUSH STA (21:50)
[2018-01-02] MEDS: Lactated Ringers 1,000 ML IV SCH ×4 (00:58→22:48)
[2018-01-02] MEDS: HYDROmorphone 1 MG/ML Syringe IVPUSH PRN ×6 (01:45→20:58)
[2018-01-02] MEDS: Temazepam 15 MG Cap PO PRN ×2 (02:02→22:06)
[2018-01-02 05:59] LABS: CHLORIDE,CL 97 mmol/L (98-107); SODIUM,NA 135 mmol/L (136-145)
[2018-01-02] MEDS ORDERED: Magnesium Sulfate/Water 4 GM in Premix Bag 1 BAG IV ONE (08:21)
--- NOTE | 2018-01-02 08:22 | PCM.PN ---
- General Info Date of Service: 01/02/18 Admission Dx/Problem (Free Text): UTI, Suspected Pyleonephritis, gram negative crispin bacteremia Subjective Update: Feeling slightly improved but flank and low abdomen pain continues. Dilaudid helping intermittently but doesn't last. No chest pain or SOB. Functional Status: Reports: Pain Controlled, Tolerating Diet, Ambulating, Urinating - Review of Systems General: Reports: Malaise. Denies: Fever HEENT: Reports: No Symptoms. Denies: Headaches, Sore Throat, Visual Changes Pulmonary: Reports: No Symptoms. Denies: Shortness of Breath, Cough, Sputum Cardiovascular: Reports: No Symptoms. Denies: Chest Pain, Edema, Lightheadedness Gastrointestinal: Reports: Abdominal Pain (lower abdomen and bilateral flank pain) Genitourinary: Reports: Frequency, Urgency. Denies: Dysuria, Burning Musculoskeletal: Reports: No Symptoms. Denies: Neck Pain Neurological: Reports: No Symptoms. Denies: Confusion Psychiatric: Reports: No Symptoms. Denies: Confusion - Patient Data Vitals - Most Recent: Last Vital Signs Temp 211.3 F H 01/02/18 07:28 Pulse 66 01/02/18 07:28 Resp 14 01/02/18 07:28 BP 137/86 01/02/18 07:28 Pulse Ox 95 01/02/18 07:28 Weight - Most Recent: 51.6 kg I&O - Last 24 Hours: Intake & Output 01/01/18 01/02/18 01/02/18 22:59 06:59 14:59 Intake Total 1529 1999 Output Total 1550 1200 Balance -21 799 Lab Results Last 24 Hours: Laboratory Results - last 24 hr 01/02/18 01/02/18 Range/Units 04:42 04:42 WBC 5.48 (4.0-11.0) K/uL RBC 3.68 L (4.30-5.90) M/uL Hgb 11.8 L (12.0-16.0) g/dL Hct 36.2 (36.0-46.0) % MCV 98.4 H (80.0-98.0) fL MCH 32.1 H (27.0-32.0) pg MCHC 32.6 (31.0-37.0) g/dL RDW Std Deviation 47.7 (28.0-62.0) fl RDW Coeff of Fidencio 13 (11.0-15.0) % Plt Count 161 (150-400) K/uL MPV 11.20 (7.40-12.00) fL Neut % (Auto) 56.1 (48.0-80.0) % Lymph % (Auto) 28.6 (16.0-40.0) % [place] % (Auto) 14.4 (0.0-15.0) % Eos % (Auto) 0.5 (0.0-7.0) % Baso % (Auto) 0.4 (0.0-1.5) % Neut # (Auto) 3.1 (1.4-5.7) K/uL Lymph # (Auto) 1.6 (0.6-2.4) K/uL [place] # (Auto) 0.8 (0.0-0.8) K/uL Eos # (Auto) 0.0 (0.0-0.7) K/uL Baso # (Auto) 0.0 (0.0-0.1) K/uL Nucleated RBC % 0.0 /100WBC Nucleated RBCs # 0 K/uL Sodium 135 L (136-145) mmol/L Potassium 3.6 (3.5-5.1) mmol/L Chloride 97 L (98-107) mmol/L Carbon Dioxide 32.1 H (21.0-32.0) mmol/L BUN 18 (7.0-18.0) mg/dL Creatinine 0.9 (0.6-1.0) mg/dL Est Cr Clr Drug Dosing 60.24 mL/min Estimated GFR (MDRD) > 60.0 ml/min Glucose 98 (74-106) mg/dL Calcium 9.0 (8.5-10.1) mg/dL Magnesium 1.4 L (1.5-2.0) mg/dL Med Orders - Current: Current Medications Acetaminophen (Tylenol) 650 mg PO Q4H PRN PRN Reason: Pain (Mild 1-3)/fever Chlorthalidone (Chlorthalidone) 12.5 mg PO DAILY [facility] Enoxaparin Sodium (Lovenox) 40 mg SUBCUT DAILY [facility] Last Admin: 01/01/18 11:21 Dose: 40 mg Hydromorphone HCl (Dilaudid) 1 mg IVPUSH Q2H PRN PRN Reason: Pain Last Admin: 01/02/18 06:54 Dose: 1 mg Levofloxacin/Dextrose 750 mg/ (Premix) 150 mls @ 100 mls/hr IV Q24H HARDIK Lactated Ringer's (Ringers, Lactated) 1,000 mls @ 125 mls/hr IV Q8H HARDIK Last Admin: 01/02/18 03:02 Dose: 125 mls/hr Magnesium Sulfate 4 gm/ Premix 100 mls @ 50 mls/hr IV ONETIME ONE Stop: 01/02/18 10:20 Levothyroxine Sodium (Levothyroxine) 75 mcg PO DAILY HARDIK Nicotine (Habitrol) 7 mg TRDERM DAILY PRN PRN Reason: nicotine withdrawal Last Admin: 01/01/18 20:17 Dose: 7 mg Ondansetron HCl (Zofran Odt) 4 mg PO Q4H PRN PRN Reason: nausea, able to take PO Ondansetron HCl (Zofran) 4 mg IVPUSH Q4H PRN PRN Reason: Nausea Temazepam (Restoril) 15 mg PO BEDTIME PRN PRN Reason: Sleep Last Admin: 01/02/18 02:02 Dose: 15 mg Discontinued Medications Acetaminophen (Tylenol Extra Strength) 1,000 mg PO ONETIME ONE Stop: 01/01/18 10:20 Last Admin: 01/01/18 10:20 Dose: 1,000 mg Acetaminophen (Tylenol Extra Strength) Confirm Administered Dose 1,000 mg .ROUTE .STK-MED ONE Stop: 01/01/18 10:18 Last Admin: 01/01/18 10:23 Dose: Not Given Diphenhydramine HCl (Benadryl) 50 mg IVPUSH ONETIME ONE Stop: 01/01/18 19:52 Last Admin: 01/01/18 20:46 Dose: 50 mg Gadobenate Dimeglumine (Multihance) 20 ml IVPUSH ONETIME STA Stop: 01/01/18 21:51 Last Admin: 01/01/18 21:51 Dose: 7 ml Sodium Chloride (Normal Saline) 1,000 mls @ 125 mls/hr IV STAT HARDIK Lactated Ringer's (Ringers, Lactated) 1,000 mls @ 125 mls/hr IV ASDIRECTED HARDIK Last Admin: 01/01/18 08:45 Dose: 125 mls/hr Levofloxacin/Dextrose 750 mg/ (Premix) 150 mls @ 100 mls/hr IV ONETIME ONE Stop: 01/01/18 10:39 Last Admin: 01/01/18 09:41 Dose: 100 mls/hr Piperacillin Sod/Tazobactam (Sod 3.375 gm/ Sodium Chloride) 50 mls @ 100 mls/ hr IV ONETIME ONE Stop: 01/01/18 10:45 Last Admin: 01/01/18 10:23 Dose: Not Given Levofloxacin/Dextrose 500 mg/ (Premix) 100 mls @ 100 mls/hr IV ONETIME ONE Stop: 01/02/18 09:59 Morphine Sulfate (Morphine) 2 mg IVPUSH ONETIME ONE Stop: 01/01/18 09:15 Last Admin: 01/01/18 09:31 Dose: 2 mg Morphine Sulfate (Morphine) 2 mg IVPUSH Q2H PRN PRN Reason: Pain (severe 7-10) Last Admin: 01/01/18 13:45 Dose: 2 mg Ondansetron HCl (Zofran) 8 mg IVPUSH ONETIME ONE Stop: 01/01/18 09:15 Last Admin: 01/01/18 09:26 Dose: 8 mg - Exam Quality Assessment: DVT Prophylaxis General: Alert, Oriented, Cooperative, No Acute Distress Neck: Supple Lungs: Clear to Auscultation, Normal Respiratory Effort Cardiovascular: Regular Rate, Regular Rhythm GI/Abdominal Exam: Normal Bowel Sounds, Soft, No Organomegaly, No Distention, No Abnormal Bruit, No Mass, Pelvis Stable, Tender (lower abdomen bilaterally and flank pain, ) Back Exam: Normal Inspection, Full Range of Motion. No: CVA Tenderness (L), CVA Tenderness (R) Extremities: Normal Inspection, Normal Range of Motion, Non-Tender, No Pedal Edema, Normal Capillary Refill Neurological: No New Focal Deficit Psy/Mental Status: Alert - Problem List & Annotations (1) Gram-negative bacteremia SNOMED Code(s): 655478131066 Code(s): R78.81 - BACTEREMIA Status: Acute Priority: High Current Visit : Yes (2) Pyelonephritis SNOMED Code(s): 15963712 Code(s): N12 - TUBULO-INTERSTITIAL NEPHRITIS, NOT SPCF ACUTE OR CHRONIC Status: Acute Priority: High Current Visit: Yes (3) Abdominal pain SNOMED Code(s): 21974458 Code(s): R10.9 - UNSPECIFIED ABDOMINAL PAIN Status: Acute Current Visit: No Qualifiers: Abdominal location: lower abdomen, unspecified Qualified Code(s): R10.30 - Lower abdominal pain, unspecified (4) Bilateral flank pain SNOMED Code(s): 023897441 Code(s): R10.9 - UNSPECIFIED ABDOMINAL PAIN Status: Acute Current Visit: No (5) Hypertension SNOMED Code(s): 37389141 Code(s): I10 - ESSENTIAL (PRIMARY) HYPERTENSION Status: Chronic Priority : Medium Current Visit: Yes Qualifiers: Hypertension type: essential hypertension Qualified Code(s): I10 - Essential (primary) hypertension (6) Hypothyroid SNOMED Code(s): 01754364 Code(s): E03.9 - HYPOTHYROIDISM, UNSPECIFIED Status: Chronic Priority: Medium Current Visit: Yes Qualifiers: Hypothyroidism type: unspecified Qualified Code(s): E03.9 - Hypothyroidism , unspecified - Problem List Review Problem List Initiated/Reviewed/Updated: Yes - My Orders Last 24 Hours: My Active Orders 01/01/18 11:30 Lactated Ringers [Ringers, Lactated] 1,000 ml IV Q8H 01/01/18 13:48 Abdomen w wo Cont [MR] Routine 01/02/18 08:21 Magnesium Sulfate/Water [Magnesium Sulfate 4 GM in Water 100 ML] 4 gm Premix Bag 1 bag IV ONETIME 01/02/18 09:00 Levofloxacin/Dextrose 5%-Water [Levaquin in D5W 750 MG/150 ML] 750 mg Premix Bag 1 bag IV Q24H - Plan Plan:: 52-year-old female admitted 01/01/18 for acute cystitis and suspected pyelonephritis/gram-negative bacteremia with past medical history of hypertension and hypothyroidism. 1. Gram negative crispin bacteremia secondary to pyelonephritis: 4/4 bottles positive for gram-negative rods, awaiting SUDHIR. [facility] ED returns with E coli, resistant only to ampicillin. No leukocytosis. Continue Levaquin IV 750 mg. No fevers. MRI of abdomen obtained to further evaluate kidneys, wedge shaped regions of restricted diffusion within the renal cortices bilaterally, suspected pyelonephritis less likely renal infarcts. scattered renal cortical cysts bilaterally. Will start Oxycodone 5 mg PRN pain. 2. Hypertension: Stable, continue home medications 3. Hypothyroidism: Stable continue home medications VTE prophylaxis: Lovenox Dispo: 1-2 days pending.
[2018-01-02] MEDS: Chlorthalidone 25 MG Tab PO SCH (08:45)
[2018-01-02] MEDS: Levothyroxine 75 MCG Tab PO SCH (08:45)
[2018-01-02] MEDS: Enoxaparin 40 MG/0.4 ML Syringe SUBCUT SCH (08:46)
[2018-01-02] MEDS ORDERED: Levofloxacin/Dextrose 5%-Water 500 MG in Premix Bag 1 BAG IV ONE (09:00)
[2018-01-02] MEDS ORDERED: Levofloxacin/Dextrose 5%-Water 750 MG in Premix Bag 1 BAG IV SCH (09:00)
[2018-01-02] MEDS ORDERED: oxyCODONE 5 MG Tab PO PRN (09:02)
[2018-01-02] MEDS ORDERED: Pantoprazole 40 MG Vial IVPUSH SCH (16:00)
[2018-01-02] MEDS ORDERED: diphenhydrAMINE 50 MG/ML SDV IVPUSH ONE (16:44)
[2018-01-02] MEDS ORDERED: Ketorolac 30 MG/ML SDV IVPUSH ONE (16:44)
[2018-01-02] MEDS ORDERED: Prochlorperazine 10 MG/2 ML SDV IVPUSH ONE (16:44)
[2018-01-02] MEDS: Acetaminophen/HYDROcodone 325-5 MG Tab PO PRN (22:06)
[2018-01-03] MEDS: Acetaminophen/HYDROcodone 325-5 MG Tab PO PRN ×2 (02:37→08:25)
[2018-01-03] MEDS: HYDROmorphone 1 MG/ML Syringe IVPUSH PRN (05:38)
[2018-01-03 05:59] LABS: CHLORIDE,CL 104 mmol/L (98-107); SODIUM,NA 140 mmol/L (136-145)
[2018-01-03] MEDS: Levothyroxine 75 MCG Tab PO SCH (08:27)
[2018-01-03] MEDS: Chlorthalidone 25 MG Tab PO SCH (08:27)
[2018-01-03] MEDS: Enoxaparin 40 MG/0.4 ML Syringe SUBCUT SCH (08:28)
[2018-01-03 09:12] VITALS: BP 124/71
[2018-01-03] MEDS ORDERED: Polyethylene Glycol 3350 Powder 17 GM Packet PO SCH (09:45)
[2018-01-03] MEDS ORDERED: Phenazopyridine 200 MG Tab PO SCH (09:45)
[2018-01-03] MEDS ORDERED: Levofloxacin 250 MG Tab PO SCH (09:45)
--- NOTE | 2018-01-03 11:19 | PCM.DCSUM1 ---
Discharge Summary - Hospital Course Brief History: 52-year-old female presenting to emergency department with chief complaint of fever, chills, nausea, vomiting with recent diagnosis of UTI with past medical history hypothyroidism and hypertension. Patient presented in the emergency department initially on 12/31/17 rand was diagnosed with a UTI. At that time she did have mild leukocytosis and was discharged with Levaquin by mouth. Patient returns to emergency department after being called for positive blood cultures from previous day in the emergency department. Patient states that she initially started feeling ill this past weekend. She has had urinary tract infections before but this seemed much worse. She had fever, chills, nausea, vomiting and felt generally fatigued with diaphoresis and "kidney pain" all weekend.. She denies any hematuria but has also had some lower back pain. She denies any history of renal stones or pyelonephritis. Patient currently denies any chest pain, palpitations, shortness of breath, syncopal episodes, visits. Emergency department: CBC unremarkable, lactate normal, mild hyponatremia at 132, mildly elevated creatinine 1.1. Urinalysis positive for UTI. She was given Zofran 8 mg IV 1, Levaquin 750 mg, and acetaminophen 1000 mg by mouth. Hemodynamically stable. Patient was admitted for UTI suspected pyelonephritis. PCP Dr. Lobato. - Discharge Data Discharge Date: 01/03/18 Discharge Disposition: Home, Self-Care 01 Condition: Good - Discharge Diagnosis/Problem(s) (1) Gram-negative bacteremia SNOMED Code(s): 836757406144 ICD Code: R78.81 - BACTEREMIA Status: Acute Priority: High Current Visit: Yes (2) Pyelonephritis SNOMED Code(s): 99959148 ICD Code: N12 - TUBULO-INTERSTITIAL NEPHRITIS, NOT SPCF ACUTE OR CHRONIC Status: Acute Priority: High Current Visit: Yes (3) Abdominal pain SNOMED Code(s): 62740590 ICD Code: R10.9 - UNSPECIFIED ABDOMINAL PAIN Status: Acute Current Visit : No Qualifiers: Abdominal location: lower abdomen, unspecified Qualified Code(s): R10.30 - Lower abdominal pain, unspecified (4) Bilateral flank pain SNOMED Code(s): 245973627 ICD Code: R10.9 - UNSPECIFIED ABDOMINAL PAIN Status: Acute Current Visit : No (5) Hypertension SNOMED Code(s): 06315759 ICD Code: I10 - ESSENTIAL (PRIMARY) HYPERTENSION Status: Chronic Priority : Medium Current Visit: Yes Qualifiers: Hypertension type: essential hypertension Qualified Code(s): I10 - Essential (primary) hypertension (6) Hypothyroid SNOMED Code(s): 54039766 ICD Code: E03.9 - HYPOTHYROIDISM, UNSPECIFIED Status: Chronic Priority: Medium Current Visit: Yes Qualifiers: Hypothyroidism type: unspecified Qualified Code(s): E03.9 - Hypothyroidism , unspecified - Discharge Plan Prescriptions/Med Rec: Acetaminophen/HYDROcodone [Robinson 325-5 MG] 1 - 2 tab PO Q4H PRN #20 tablet PRN Reason: Pain Levofloxacin [Levaquin] 750 mg PO DAILY #11 tab Phenazopyridine Hcl [IJD: Phenazopyridine] 200 mg PO TID PRN #15 tablet PRN Reason: urinary pain Home Medications: Home Meds Levothyroxine [Synthroid] 75 mcg PO DAILY 01/14/14 [History] Chlorthalidone 12.5 mg PO DAILY 08/18/17 [History] Acetaminophen/HYDROcodone [Robinson 325-5 MG] 1 - 2 tab PO Q4H PRN #20 tablet 01/03 [Rx] Levofloxacin [Levaquin] 750 mg PO DAILY #11 tab 01/03/18 [Rx] Phenazopyridine Hcl [IJD: Phenazopyridine] 200 mg PO TID PRN #15 tablet [Rx] Patient Handouts: Acetaminophen; Hydrocodone tablets or capsules, Pyelonephritis, Adult, [id number], Phenazopyridine tablets, Urinary Tract Infection, Adult, [id number], Levofloxacin tablets Referrals: Debbi Roland NP [Ordering Only Provider] - 01/10/18 10:15 am - Discharge Summary/Plan Comment DC Time >30 min.: No Discharge Summary/Plan Comment: Discharge Diagnoses: E coli bacteremia Pyelonephritis- E coli KAROLINA Bowen was admited secondary to positive BC with gram negative rods. She was treated for suspected pyelonephritis due to positive UA and lower abdominal and bilateral flank pain. She was treated with Levaquin 750 mg IV. BC and UC returned with same E coli resistant to Ampicillin. She continued to improve and today was feeling much better. She has been afebrile since 01/01. Pain has improved but continues slightly to lower abdomen. repeat BC are pending on discharge. Patient doing much better and eager for discharge home. She was educated on god female hygiene and wiping from front to back to limit bacteria from entering uretha. She verbalized understanding and reports at times she isn' t great with this, but will work on this. She will be continued on Levaquin or pyelonephritis and bacteremia for a total of 14 days. She was given Robinson 5/325 1-2 tabs every 4-6 hours as needed for pain, #20 no RF. She was encouraged to follow up with PCP in 1 week. Appointment has been arranged. She is to return to ED or clinic if concerns should arise. - General Info Date of Service: 01/03/18 Admission Dx/Problem (Free Text: UTI, Suspected Pyleonephritis, gram negative crispin bacteremia Subjective Update: Feeling much better today. Having a little dysuria still, but intermittent. No chest pain or SOB. Scant lower abdominal pain. Requesting discharge today if possible. Functional Status: Reports: Pain Controlled, Tolerating Diet, Ambulating, Urinating - Review of Systems General: Reports: No Symptoms. Denies: Fever HEENT: Reports: No Symptoms. Denies: Headaches, Sore Throat, Visual Changes Pulmonary: Reports: No Symptoms. Denies: Shortness of Breath Cardiovascular: Reports: No Symptoms. Denies: Chest Pain Gastrointestinal: Reports: Abdominal Pain (scant to lower abdomen, but improving. ) Genitourinary: Reports: Dysuria, Urgency. Denies: Frequency, Burning, Pain Musculoskeletal: Reports: No Symptoms. Denies: Neck Pain Skin: Reports: No Symptoms Neurological: Reports: No Symptoms. Denies: Confusion Psychiatric: Reports: No Symptoms. Denies: Confusion - Patient Data Vitals - Most Recent: Last Vital Signs Temp 97.7 F 01/03/18 08:00 Pulse 69 01/03/18 08:00 Resp 16 01/03/18 08:00 BP 124/71 01/03/18 08:00 Pulse Ox 99 01/03/18 08:00 Weight - Most Recent: 51.6 kg I&O - Last 24 hours: Intake & Output 01/02/18 01/03/18 01/03/18 22:59 06:59 14:59 Intake Total 3832 640 999 Output Total 2500 1500 Balance 1332 -860 999 Lab Results - Last 24 hrs: Laboratory Results - last 24 hr 01/03/18 01/03/18 Range/Units 05:08 05:08 WBC 3.92 L (4.0-11.0) K/uL RBC 3.54 L (4.30-5.90) M/uL Hgb 11.5 L (12.0-16.0) g/dL Hct 35.2 L (36.0-46.0) % MCV 99.4 H (80.0-98.0) fL MCH 32.5 H (27.0-32.0) pg MCHC 32.7 (31.0-37.0) g/dL RDW Std Deviation 49.2 (28.0-62.0) fl RDW Coeff of Fidencio 13 (11.0-15.0) % Plt Count 163 (150-400) K/uL MPV 11.20 (7.40-12.00) fL Neut % (Auto) 52.5 (48.0-80.0) % Lymph % (Auto) 32.7 (16.0-40.0) % Brooke % (Auto) 12.2 (0.0-15.0) % Eos % (Auto) 2.3 (0.0-7.0) % Baso % (Auto) 0.3 (0.0-1.5) % Neut # (Auto) 2.1 (1.4-5.7) K/uL Lymph # (Auto) 1.3 (0.6-2.4) K/uL Brooke # (Auto) 0.5 (0.0-0.8) K/uL Eos # (Auto) 0.1 (0.0-0.7) K/uL Baso # (Auto) 0.0 (0.0-0.1) K/uL Nucleated RBC % 0.0 /100WBC Nucleated RBCs # 0 K/uL Sodium 140 (136-145) mmol/L Potassium 5.2 H (3.5-5.1) mmol/L Chloride 104 (98-107) mmol/L Carbon Dioxide 34.1 H (21.0-32.0) mmol/L BUN 20 H (7.0-18.0) mg/dL Creatinine 0.8 (0.6-1.0) mg/dL Est Cr Clr Drug Dosing 67.77 mL/min Estimated GFR (MDRD) > 60.0 ml/min Glucose 100 (74-106) mg/dL Calcium 9.0 (8.5-10.1) mg/dL Med Orders - Current: Current Medications Acetaminophen (Tylenol) 650 mg PO Q4H PRN PRN Reason: Pain (Mild 1-3)/fever Hydrocodone Bitart/Acetaminophen (Robinson 325-5 Mg) 1 - 2 tab PO Q4H PRN PRN Reason: Pain Last Admin: 01/03/18 08:25 Dose: 2 tab Chlorthalidone (Chlorthalidone) 12.5 mg PO DAILY [facility] Last Admin: 01/03/18 08:27 Dose: 12.5 mg Enoxaparin Sodium (Lovenox) 40 mg SUBCUT DAILY [facility] Last Admin: 01/03/18 08:28 Dose: 40 mg Hydromorphone HCl (Dilaudid) 1 mg IVPUSH Q2H PRN PRN Reason: Pain Last Admin: 01/03/18 05:38 Dose: 1 mg Levofloxacin (Levaquin) 750 mg PO Q24H [facility] Last Admin: 01/03/18 11:03 Dose: 750 mg Levothyroxine Sodium (Levothyroxine) 75 mcg PO DAILY [facility] Last Admin: 01/03/18 08:27 Dose: 75 mcg Nicotine (Habitrol) 7 mg TRDERM DAILY PRN PRN Reason: nicotine withdrawal Last Admin: 01/01/18 20:17 Dose: 7 mg Ondansetron HCl (Zofran Odt) 4 mg PO Q4H PRN PRN Reason: nausea, able to take PO Ondansetron HCl (Zofran) 4 mg IVPUSH Q4H PRN PRN Reason: Nausea Pantoprazole Sodium (Protonix Iv) 40 mg IVPUSH Q24H [facility] Last Admin: 01/02/18 17:26 Dose: 40 mg Phenazopyridine HCl (Pyridium) 200 mg PO TID [facility] Last Admin: 01/03/18 11:03 Dose: 200 mg Polyethylene Glycol (Miralax) 17 gm PO DAILY [facility] Last Admin: 01/03/18 11:03 Dose: 17 gm Temazepam (Restoril) 15 mg PO BEDTIME PRN PRN Reason: Sleep Last Admin: 01/02/18 22:06 Dose: 15 mg Discontinued Medications Acetaminophen (Tylenol Extra Strength) 1,000 mg PO ONETIME ONE Stop: 01/01/18 10:20 Last Admin: 01/01/18 10:20 Dose: 1,000 mg Acetaminophen (Tylenol Extra Strength) Confirm Administered Dose 1,000 mg .ROUTE .STK-MED ONE Stop: 01/01/18 10:18 Last Admin: 01/01/18 10:23 Dose: Not Given Diphenhydramine HCl (Benadryl) 50 mg IVPUSH ONETIME ONE Stop: 01/01/18 19:52 Last Admin: 01/01/18 20:46 Dose: 50 mg Diphenhydramine HCl (Benadryl) 50 mg IVPUSH ONETIME ONE Stop: 01/02/18 16:45 Last Admin: 01/02/18 17:31 Dose: 50 mg Gadobenate Dimeglumine (Multihance) 20 ml IVPUSH ONETIME STA Stop: 01/01/18 21:51 Last Admin: 01/01/18 21:51 Dose: 7 ml Sodium Chloride (Normal Saline) 1,000 mls @ 125 mls/hr IV STAT HARDIK Lactated Ringer's (Ringers, Lactated) 1,000 mls @ 125 mls/hr IV ASDIRECTED [facility] Last Admin: 01/01/18 08:45 Dose: 125 mls/hr Levofloxacin/Dextrose 750 mg/ (Premix) 150 mls @ 100 mls/hr IV ONETIME ONE Stop: 01/01/18 10:39 Last Admin: 01/01/18 09:41 Dose: 100 mls/hr Piperacillin Sod/Tazobactam (Sod 3.375 gm/ Sodium Chloride) 50 mls @ 100 mls/ hr IV ONETIME ONE Stop: 01/01/18 10:45 Last Admin: 01/01/18 10:23 Dose: Not Given Levofloxacin/Dextrose 500 mg/ (Premix) 100 mls @ 100 mls/hr IV ONETIME ONE Stop: 01/02/18 09:59 Levofloxacin/Dextrose 750 mg/ (Premix) 150 mls @ 100 mls/hr IV Q24H [facility] Last Admin: 01/02/18 10:42 Dose: 100 mls/hr Lactated Ringer's (Ringers, Lactated) 1,000 mls @ 125 mls/hr IV Q8H [facility] Last Admin: 01/02/18 22:48 Dose: 125 mls/hr Magnesium Sulfate 4 gm/ Premix 100 mls @ 50 mls/hr IV ONETIME ONE Stop: 01/02/18 10:20 Last Admin: 01/02/18 08:42 Dose: 50 mls/hr Ketorolac Tromethamine (Toradol) 30 mg IVPUSH ONETIME ONE Stop: 01/02/18 16:45 Last Admin: 01/02/18 17:31 Dose: 30 mg Morphine Sulfate (Morphine) 2 mg IVPUSH ONETIME ONE Stop: 01/01/18 09:15 Last Admin: 01/01/18 09:31 Dose: 2 mg Morphine Sulfate (Morphine) 2 mg IVPUSH Q2H PRN PRN Reason: Pain (severe 7-10) Last Admin: 01/01/18 13:45 Dose: 2 mg Ondansetron HCl (Zofran) 8 mg IVPUSH ONETIME ONE Stop: 01/01/18 09:15 Last Admin: 01/01/18 09:26 Dose: 8 mg Oxycodone HCl (Oxycodone) 5 mg PO Q4H PRN PRN Reason: Pain Last Admin: 01/02/18 09:23 Dose: 5 mg Prochlorperazine Edisylate (Compazine) 10 mg IVPUSH ONETIME ONE Stop: 01/02/18 16:45 Last Admin: 01/02/18 17:32 Dose: 10 mg - Exam General: Reports: Alert, Oriented, Cooperative, No Acute Distress Neck: Reports: Supple Lungs: Reports: Clear to Auscultation, Normal Respiratory Effort Cardiovascular: Reports: Regular Rate, Regular Rhythm GI/Abdominal Exam: Normal Bowel Sounds, Soft, No Organomegaly, No Distention, No Abnormal Bruit, No Mass, Pelvis Stable, Tender (scant to lower abdomen, significant improved from admission.) Back Exam: Reports: Normal Inspection, Full Range of Motion. Denies: CVA Tenderness (L), CVA Tenderness (R) Skin: Reports: Warm, Dry, Intact Neurological: Reports: No New Focal Deficit Psy/Mental Status: Reports: Alert, Normal Affect, Normal Mood *Q Meaningful Use (DIS) - VTE *Q VTE Criteria *Q: - Stroke *Q Stroke Criteria *Q: - AMI *Q AMI Criteria *Q:
[2018-01-03 12:58] LABS: CHLORIDE,CL 101 mmol/L (98-107); SODIUM,NA 138 mmol/L (136-145)
--- NOTE | 2018-01-03 15:43 | MR ---
EXAM DATE: 01/01/18 PATIENT'S AGE: 52 Patient: JUSTIN STUBBS Facility: [facility] Site . Site : [id number] Study: MRI-Abdomen W/ and W/O Cont [id number]/[id number] 9:59:08 PM Ordering Physician: Rodolfo Mccarthy Final Report: INDICATION: Pyelonephritis. Hypertension. Acute cystitis. TECHNIQUE: Abdominal MRI with T1 in- and out of phase, T2, diffusion weighted, and progressively delayed post-contrast images. Intravenous gadolinium administered. FINDINGS: No fatty infiltration of the liver. No focal abnormalities identified in the visualized portions of the liver, spleen, pancreas, and adrenal glands. Scattered punctate very small cysts in both kidneys. Mild heterogeneity of the enhancement of the kidneys. The kidneys are otherwise unremarkable. No hydronephrosis. Dilation of the common bile duct measuring 1.4 cm. No intrahepatic bile duct dilation. No choledocholithiasis. Normal size of the main pancreatic duct. IMPRESSION: 1. Mild heterogeneity of the enhancement of the kidneys may be secondary to pyelonephritis. 2. Dilation of the common bile duct with no intrahepatic bile duct dilation. This could be secondary to a previously passed stone. No current choledocholithiasis. Dictated by Dg Calzada MD @ Jan 03 2018 2:28PM Signed by: Dg Calzada MD @01/03/2018 2:38:45 PM (Electronic Signature) Report Signed by Proxy. DELMIS
== END 2018-01-03 13:30 | disposition home or self-care (01) ==
LOC: MW.ED 08:10 → MW.MS 09:25
PROVIDERS: ADMIT Family Medicine; ATTEND Family Medicine
DX: R78.81 Bacteremia (principal); N12 Tubulo-interstitial nephritis, not specified as acute or chronic; B96.20 Unspecified Escherichia coli [E. coli] as the cause of diseases classified elsewhere; E03.9 Hypothyroidism, unspecified; I10 Essential (primary) hypertension; E87.1 Hypo-osmolality and hyponatremia; K21.9 Gastro-esophageal reflux disease without esophagitis; F17.210 Nicotine dependence, cigarettes, uncomplicated; Z79.899 Other long term (current) drug therapy; Z91.041 Radiographic dye allergy status; Z88.8 Allergy status to other drugs, medicaments and biological substances; Z88.2 Allergy status to sulfonamides
CPT/HCPCS: 36415; 74183; 76775; 80048; 80053; 81001; 83605; 83735; 85025; 87040; 87086; 96361; 96365; 96366; 96367; 96372; 96375; 96376; 99283; A9270; A9577; C9113; G0378; J0780; J1170; J1200; J1650; J1885; J1956; J2270; J2405; J2543; J3475; J7050; J7120

== ENCOUNTER 2018-02-02 13:22 | Emergency (ER) | payer OTHER ==
[2018-02-02] MEDS ORDERED: Sodium Chloride 0.9% 10 ML Syringe FLUSH PRN (13:33)
[2018-02-02] MEDS ORDERED: Sodium Chloride 0.9% 2.5 ML Syringe FLUSH PRN (13:33)
--- NOTE | 2018-02-02 13:40 | EDM.PDOC ---
ED HPI GENERAL MEDICAL PROBLEM - General Chief Complaint: General Stated Complaint: POSSIBLE ECOLI IN BLOODSTREAM Time Seen by Provider: 02/02/18 13:35 Source of Information: Reports: Patient History Limitations: Reports: No Limitations - History of Present Illness INITIAL COMMENTS - FREE TEXT/NARRATIVE: HISTORY AND PHYSICAL: []52-year-old presenting with suspected E. coli infection History of Present Illness: []Patient was seen in December hospitalized for urinary tract infection with Escherichia coli and is feeling the same symptoms She has been sick for 4 days Hysterectomy in 2005 Review of Systems: As per history of present illness and below otherwise all systems reviewed and negative. Past medical history: As per history of present illness and as reviewed below otherwise noncontributory. Surgical history: As per history of present illness and as reviewed below otherwise noncontributory. Social history: No reported history of drug or alcohol abuse. Family history: As per history of present illness and as reviewed below otherwise noncontributory. Physical exam: Alert oriented female answering questions appropriately has difficulty taking a full breath HEENT: Atraumatic, normocehpalic, pupils reactive, negative for conjunctival pallor or scleral icterus, mucous membranes moist, throat clear, neck supple, nontender, trachea midline. Poor inspiratory effort Lungs: Clear to auscultation, breath sounds equal bilaterally, chest non tender. Breath sounds are shallow Heart: S1S2, regular, negative for clicks, rubs, or JVD. Abdomen: Soft, nondistended, nontender. Negative for masses or hepatossplenmegaly. Negative for costovertebral tenderness. Pelvis: Stable nontender. Genitourinary: Deferred. Rectal: Deferred Extremities: Atraumatic, negative for cords or calf pain. Neurovascular unremarkable. Neuro: Awake, alert, oriented. Cranial nerves II through XII unremarkable. Cerebellum unremarkable. Motor and sensory unremarkable throughout. Exam nonfocal. Breathing improved with DuoNeb treatment Skeletal lab values and chest x-ray with her Diagnostics: [CBC CMP UA urine screen x-ray] Therapeutics: []duoneb Impression: []Respiratory infection Plan: []Discharged home Levaquin 500 daily 6 Follow-up his primary care Return to the emergency room is discussed and directed Definitive disposition and diagnosis as appropriate pending reevaluation and review of above. Onset: Sudden Duration: Day(s): (4) Location: Reports: Generalized Quality: Reports: Ache Severity: Moderate chest,throat,low back Pain Score (Numeric/FACES): 9 - Related Data Allergies Allergy/AdvReac Type Severity Reaction Status Date / Time Iodine and Iodide Containing Allergy Mild Hives Verified 02/02/18 13:30 Produc Sulfa (Sulfonamide AdvReac Vomiting Verified 02/02/18 13:30 Antibiotics) sumatriptan [From Imitrex] AdvReac Tachycardia Verified 02/02/18 13:30 sumatriptan succinate AdvReac Tachycardia Verified 02/02/18 13:30 [From Imitrex] Home Meds: Home Meds Levothyroxine [Synthroid] 75 mcg PO DAILY 01/14/14 [History] Chlorthalidone 12.5 mg PO DAILY 08/18/17 [History] Past Medical History HEENT History: Reports: None Cardiovascular History: Reports: Hypertension Respiratory History: Reports: Other (See Below) Other Respiratory History: nodule on one lung Gastrointestinal History: Reports: Colon Polyp, GERD Genitourinary History: Reports: None Other Genitourinary History: recurrent bacterial vaginitis 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 Dermatologic History: Reports: None - Infectious Disease History Infectious Disease History: Reports: None - Past Surgical History Head Surgeries/Procedures: Reports: None HEENT Surgical History: Reports: Naso-Sinus Surgery Cardiovascular Surgical History: Reports: None Female Surgical History: Reports: Hysterectomy Neurological Surgical History: Reports: None Musculoskeletal Surgical History: Reports: Other (See Below) Oncologic Surgical History: Reports: None Dermatological Surgical History: Reports: None Social & Family History - Family History Family Medical History: Noncontributory HEENT: Reports: Glaucoma Cardiac: Reports: Aneurysm, Hypertension OBGYN: Reports: Musculoskeletal: Reports: Arthritis Psychiatric: Reports: Bipolar Oncologic: Reports: Lymphoma, Skin - Tobacco Use Smoking Status *Q: Current Every Day Smoker Years of Tobacco use: 38 Packs/Tins Daily: 0.5 Used Tobacco, but Quit: No Second Hand Smoke Exposure: No - Caffeine Use Caffeine Use: Reports: Coffee - Alcohol Use Days Per Week of Alcohol Use: 3 Number of Drinks Per Day: 2 Total Drinks Per Week: 6 - Recreational Drug Use Recreational Drug Use: No Drug Use in Last 12 Months: Yes Recreational Drug Type: Reports: Marijuana/Hashish Recreational Drug Use Frequency: Rarely Recreational Drug Last Use: 06/15/14 ED ROS GENERAL - Review of Systems Review Of Systems: ROS reveals no pertinent complaints other than HPI. ED EXAM, GENERAL - Physical Exam Exam: See Below (see dictation) Course - Vital Signs Last Recorded V/S: Last Vital Signs Temp 37.6 C 02/02/18 13:27 Pulse 105 H 02/02/18 13:27 Resp 18 02/02/18 13:27 BP 183/119 H 02/02/18 13:27 Pulse Ox 97 02/02/18 13:27 - Orders/Labs/Meds Orders: Active Orders 24 hr Category Date Time Status RT Aerosol Therapy [RC] ASDIRECTED Care 02/02/18 14:45 Active Chest 2V [CR] Stat Exams 02/02/18 13:38 Taken CULTURE URINE [RM] Stat Lab 02/02/18 13:34 Ordered UA W/MICROSCOPIC [URIN] Stat Lab 02/02/18 13:34 Ordered Sodium Chloride 0.9% [Saline Flush] Med 02/02/18 13:33 Active 10 ml FLUSH ASDIRECTED PRN Sodium Chloride 0.9% [Saline Flush] Med 02/02/18 13:33 Active 2.5 ml FLUSH ASDIRECTED PRN Saline Lock Insert [OM.PC] Stat Oth 02/02/18 13:33 Ordered Medication Orders Sodium Chloride (Saline Flush) 10 ml FLUSH ASDIRECTED PRN PRN Reason: Keep Vein Open Sodium Chloride (Saline Flush) 2.5 ml FLUSH ASDIRECTED PRN PRN Reason: Keep Vein Open Labs: Laboratory Tests 02/02/18 02/02/18 02/02/18 Range/Units 13:34 13:51 13:51 WBC 11.09 H (4.0-11.0) K/uL RBC 3.71 L (4.30-5.90) M/uL Hgb 12.2 (12.0-16.0) g/dL Hct 35.8 L (36.0-46.0) % MCV 96.5 (80.0-98.0) fL MCH 32.9 H (27.0-32.0) pg MCHC 34.1 (31.0-37.0) g/dL RDW Std Deviation 49.9 (28.0-62.0) fl RDW Coeff of Fidencio 14 (11.0-15.0) % Plt Count 168 (150-400) K/uL MPV 10.20 (7.40-12.00) fL Neut % (Auto) 77.6 (48.0-80.0) % Lymph % (Auto) 13.4 L (16.0-40.0) % [place] % (Auto) 8.6 (0.0-15.0) % Eos % (Auto) 0.2 (0.0-7.0) % Baso % (Auto) 0.2 (0.0-1.5) % Neut # (Auto) 8.6 H (1.4-5.7) K/uL Lymph # (Auto) 1.5 (0.6-2.4) K/uL [place] # (Auto) 1.0 H (0.0-0.8) K/uL Eos # (Auto) 0.0 (0.0-0.7) K/uL Baso # (Auto) 0.0 (0.0-0.1) K/uL Nucleated RBC % 0.0 /100WBC Nucleated RBCs # 0 K/uL D-Dimer, Quantitative (0.0-0.52) mg/LFEU Sodium 138 (136-145) mmol/L Potassium 3.5 (3.5-5.1) mmol/L Chloride 102 (98-107) mmol/L Carbon Dioxide 27.5 (21.0-32.0) mmol/L BUN 17 (7.0-18.0) mg/dL Creatinine 0.6 (0.6-1.0) mg/dL Est Cr Clr Drug Dosing 93.86 mL/min Estimated GFR (MDRD) > 60.0 ml/min Glucose 123 H (74-106) mg/dL Calcium 9.4 (8.5-10.1) mg/dL Total Bilirubin 0.3 (0.2-1.0) mg/dL AST 22 (15-37) IU/L ALT 20 (14-63) IU/L Alkaline Phosphatase 153 H (46-116) U/L Total Protein 7.2 (6.4-8.2) g/dL Albumin 3.3 L (3.4-5.0) g/dL Globulin 3.9 H (2.0-3.5) g/dL Albumin/Globulin Ratio 0.9 L (1.3-2.8) Urine Color YELLOW Urine Appearance CLEAR Urine pH 6.0 (5.0-8.0) Ur Specific [place] 1.020 (1.001-1.035) Urine Protein TRACE (NEGATIVE) mg/dL Urine Glucose (UA) NEGATIVE (NEGATIVE) mg/dL Urine Ketones NEGATIVE (NEGATIVE) mg/dL Urine Occult Blood NEGATIVE (NEGATIVE) Urine Nitrite NEGATIVE (NEGATIVE) Urine Bilirubin NEGATIVE (NEGATIVE) Urine Urobilinogen 0.2 (<2.0) EU/dL Ur Leukocyte Esterase NEGATIVE (NEGATIVE) Urine RBC NONE SEEN (0-2/HPF) Urine WBC 0-2 (0-5/HPF) Ur Squamous Epith Cells RARE Urine Bacteria NOT SEEN (NEGATIVE) 02/02/18 Range/Units 13:51 WBC (4.0-11.0) K/uL RBC (4.30-5.90) M/uL Hgb (12.0-16.0) g/dL Hct (36.0-46.0) % MCV (80.0-98.0) fL MCH (27.0-32.0) pg MCHC (31.0-37.0) g/dL RDW Std Deviation (28.0-62.0) fl RDW Coeff of Fidencio (11.0-15.0) % Plt Count (150-400) K/uL MPV (7.40-12.00) fL Neut % (Auto) (48.0-80.0) % Lymph % (Auto) (16.0-40.0) % [place] % (Auto) (0.0-15.0) % Eos % (Auto) (0.0-7.0) % Baso % (Auto) (0.0-1.5) % Neut # (Auto) (1.4-5.7) K/uL Lymph # (Auto) (0.6-2.4) K/uL [place] # (Auto) (0.0-0.8) K/uL Eos # (Auto) (0.0-0.7) K/uL Baso # (Auto) (0.0-0.1) K/uL Nucleated RBC % /100WBC Nucleated RBCs # K/uL D-Dimer, Quantitative 0.40 (0.0-0.52) mg/LFEU Sodium (136-145) mmol/L Potassium (3.5-5.1) mmol/L Chloride (98-107) mmol/L Carbon Dioxide (21.0-32.0) mmol/L BUN (7.0-18.0) mg/dL Creatinine (0.6-1.0) mg/dL Est Cr Clr Drug Dosing mL/min Estimated GFR (MDRD) ml/min Glucose (74-106) mg/dL Calcium (8.5-10.1) mg/dL Total Bilirubin (0.2-1.0) mg/dL AST (15-37) IU/L ALT (14-63) IU/L Alkaline Phosphatase (46-116) U/L Total Protein (6.4-8.2) g/dL Albumin (3.4-5.0) g/dL Globulin (2.0-3.5) g/dL Albumin/Globulin Ratio (1.3-2.8) Urine Color Urine Appearance Urine pH (5.0-8.0) Ur Specific [place] (1.001-1.035) Urine Protein (NEGATIVE) mg/dL Urine Glucose (UA) (NEGATIVE) mg/dL Urine Ketones (NEGATIVE) mg/dL Urine Occult Blood (NEGATIVE) Urine Nitrite (NEGATIVE) Urine Bilirubin (NEGATIVE) Urine Urobilinogen (<2.0) EU/dL Ur Leukocyte Esterase (NEGATIVE) Urine RBC (0-2/HPF) Urine WBC (0-5/HPF) Ur Squamous Epith Cells Urine Bacteria (NEGATIVE) Meds: Medications Generic Name Dose Route Start Last Admin Trade Name Freq PRN Reason Stop Dose Admin Sodium Chloride 10 ml 02/02/18 13:33 Saline Flush FLUSH ASDIRECTED PRN Keep Vein Open Sodium Chloride 2.5 ml 02/02/18 13:33 Saline Flush FLUSH ASDIRECTED PRN Keep Vein Open Discontinued Medications Generic Name Dose Route Start Last Admin Trade Name Freq PRN Reason Stop Dose Admin Albuterol/Ipratropium 3 ml 02/02/18 14:44 02/02/18 14:52 Duoneb 3.0-0.5 Mg/3 Ml NEB 02/02/18 14:45 3 ml ONETIME ONE Administration Ketorolac Tromethamine 30 mg 02/02/18 14:47 02/02/18 15:08 Toradol IVPUSH 02/02/18 14:48 30 mg ONETIME ONE Administration Ketorolac Tromethamine Confirm 02/02/18 15:06 02/02/18 15:14 Toradol Administered 02/02/18 15:07 Not Given Dose 60 mg .ROUTE .STK-MED ONE Levofloxacin 500 mg 02/02/18 15:36 Levaquin PO 02/02/18 15:37 ONETIME ONE Departure - Departure Time of Disposition: 15:37 Disposition: Home, Self-Care 01 Condition: Good Clinical Impression: Respiratory infection - Discharge Information Referrals: PCP,None [Primary Care Provider] - Forms: ED Department Discharge Additional Instructions: The following information is given to patients seen in the emergency department who are being discharged to home. This information is to outline your options for follow-up care. We provide all patients seen in our emergency department with a follow-up referral. The need for follow-up, as well as the timing and circumstances, are variable depending upon the specifics of your emergency department visit. If you don't have a primary care physician on staff, we will provide you with a referral. We always advise you to contact your personal physician following an emergency department visit to inform them of the circumstance of the visit and for follow-up with them and/or the need for any referrals to a consulting specialist. The emergency department will also refer you to a specialist when appropriate. This referral assures that you have the opportunity for followup care with a specialist. All of these measure are taken in an effort to provide you with optimal care, which includes your followup. Under all circumstances we always encourage you to contact your private physician who remains a resource for coordinating your care. When calling for followup care, please make the office aware that this follow-up is from your recent emergency room visit. If for any reason you are refused follow-up, please contact the [facility] emergency department at and asked to speak to the emergency department charge nurse. Continue with the inhaler that you have at home Antibiotic as prescribed Levaquin 1 daily 6 Follow-up with your primary care provider Return to the emergency room as directed and discussed - My Orders Last 24 Hours: My Active Orders 02/02/18 13:33 Sodium Chloride 0.9% [Saline Flush] 10 ml FLUSH ASDIRECTED PRN Sodium Chloride 0.9% [Saline Flush] 2.5 ml FLUSH ASDIRECTED PRN Saline Lock Insert [OM.PC] Stat 02/02/18 13:34 CULTURE URINE [RM] Stat UA W/MICROSCOPIC [URIN] Stat 02/02/18 13:38 Chest 2V [CR] Stat 02/02/18 14:45 RT Aerosol Therapy [RC] ASDIRECTED - Assessment/Plan Last 24 Hours: My Active Orders 02/02/18 13:33 Sodium Chloride 0.9% [Saline Flush] 10 ml FLUSH ASDIRECTED PRN Sodium Chloride 0.9% [Saline Flush] 2.5 ml FLUSH ASDIRECTED PRN Saline Lock Insert [OM.PC] Stat 02/02/18 13:34 CULTURE URINE [RM] Stat UA W/MICROSCOPIC [URIN] Stat 02/02/18 13:38 Chest 2V [CR] Stat 02/02/18 14:45 RT Aerosol Therapy [RC] ASDIRECTED
[2018-02-02 14:21] LABS: CHLORIDE,CL 102 mmol/L (98-107); SODIUM,NA 138 mmol/L (136-145)
[2018-02-02] MEDS ORDERED: Albuterol/Ipratropium 3.0-0.5 MG/3 ML Neb Soln NEB ONE (14:44)
[2018-02-02] MEDS ORDERED: Ketorolac 30 MG/ML SDV IVPUSH ONE (14:47)
[2018-02-02] MEDS ORDERED: Ketorolac 60 MG/2 ML SDV ONE (15:06)
[2018-02-02] MEDS ORDERED: Levofloxacin 500 MG Tab PO ONE (15:36)
[2018-02-02 17:08] VITALS: BP 165/92
--- NOTE | 2018-02-04 11:35 | CR ---
EXAM DATE: 02/02/18 PATIENT'S AGE: 52 Patient: JUSTIN STUBBS Facility: [place], [place] Site . Site : 1965 Study: XRay Chest [id number] 2:14:30 PM Ordering Physician: Doctor Wheeler Final Report: Chest pain Two-view chest x-ray Findings: Normal cardiac mediastinal silhouette. No acute airspace or interstitial process. No effusion or pneumothorax. IMPRESSION: 1. No acute pulmonary process . Dictated by Kaycee Calzada MD @ Feb 02 2018 2:18PM (Electronic Signature) Report Signed by Proxy. DELMIS
== END 2018-02-02 16:02 | disposition home or self-care (01) ==
LOC: MW.ED 13:22
DX: J98.8 Other specified respiratory disorders (principal); I10 Essential (primary) hypertension; F17.210 Nicotine dependence, cigarettes, uncomplicated; E03.9 Hypothyroidism, unspecified; Z79.899 Other long term (current) drug therapy; Z88.2 Allergy status to sulfonamides; Z91.09 Other allergy status, other than to drugs and biological substances; Z88.8 Allergy status to other drugs, medicaments and biological substances
CPT/HCPCS: 36415; 71046; 80053; 81001; 85025; 85379; 87086; 94640; 96374; 99284; A9270; J1885; 99283

== ENCOUNTER 2019-06-15 13:45 | Emergency (ER) | payer BC ==
[2019-06-15 14:04] VITALS: BP 90/54; PULSE 95
[2019-06-15] MEDS ORDERED: Ketorolac 60 MG/2 ML SDV IM ONE (14:07)
--- NOTE | 2019-06-15 14:07 | EDM.PDOC ---
ED HPI GENERAL MEDICAL PROBLEM - General Chief Complaint: Lower Extremity Injury/Pain Stated Complaint: LEFT FOOT PAIN Time Seen by Provider: 06/15/19 14:07 Source of Information: Reports: Patient History Limitations: Reports: No Limitations - History of Present Illness INITIAL COMMENTS - FREE TEXT/NARRATIVE: HISTORY AND PHYSICAL: History of present illness: Patient is a 53-year-old female presents to the ED with complaint of left foot pain. She thinks she may have injured it yesterday while camping but states she was drinking so she can not recall a specific injury. She states she woke up this morning with a lot of pain in the foot and can barely walk on it. Denies fevers, chills, nausea, vomiting. She is currently seeing PCP for polyarthritis and work up for RA. Review of systems: As per history of present illness and below otherwise all systems reviewed and negative. Past medical history: As per history of present illness and as reviewed below otherwise noncontributory. Surgical history: As per history of present illness and as reviewed below otherwise noncontributory. Social history: No reported history of drug or alcohol abuse. Family history: As per history of present illness and as reviewed below otherwise noncontributory. Physical exam: General: Patient sitting comfortably in no acute distress and nontoxic appearing HEENT: Atraumatic, normocephalic, pupils reactive, negative for conjunctival pallor or scleral icterus, mucous membranes moist, throat clear, neck supple, nontender, trachea midline. No meningeal signs. Lungs: Clear to auscultation, breath sounds equal bilaterally, chest nontender. Heart: S1S2, regular, negative for clicks, rubs, or overt murmur. Abdomen: Soft, nondistended, nontender. Negative for masses or hepatosplenomegaly. Negative for costovertebral tenderness. No rigidity, rebound , guarding. Pelvis: Stable nontender. Genitourinary: Deferred. Rectal: Deferred. Extremities: No obvious swelling or deformity of the left foot or ankle. There is slight warmth to the foot with skin is intact and no erythema. Pain to palpation of aspect of the foot and myosis of the ankle. Atraumatic, negative for cords or calf pain. Neurovascular unremarkable. Neuro: Awake, alert, oriented. Cranial nerves II through XII unremarkable. Cerebellum unremarkable. Motor and sensory unremarkable throughout. Exam nonfocal. Notes: Diagnostics: X-ray left ankle, x-ray left foot, CBC, CMP, uric acid Therapeutics: Toradol 60mg IM CAM boot crutches Prescriptions: Tramadol 50mg (#12) Impression: Left foot pain Plan: 1. Ice, elevate, and motrin or tylenol as needed 2. Follow up with podiatry, please call the number provided to schedule an appointment 3. Return to ED as needed as discussed Definitive disposition and diagnosis as appropriate pending reevaluation and review of above. left ankle and foot Pain Score (Numeric/FACES): 10 - Related Data Allergies Allergy/AdvReac Type Severity Reaction Status Date / Time Iodine and Iodide Containing Allergy Mild Hives Verified 06/15/19 14:03 Produc Sulfa (Sulfonamide AdvReac Vomiting Verified 06/15/19 14:03 Antibiotics) sumatriptan [From Imitrex] AdvReac Tachycardia Verified 06/15/19 14:03 sumatriptan succinate AdvReac Tachycardia Verified 06/15/19 14:03 [From Imitrex] Home Meds: Home Meds Levothyroxine [Synthroid] 75 mcg PO DAILY 01/14/14 [History] Losartan [Cozaar] mg PO DAILY 06/15/19 [History] hydroCHLOROthiazide [Hydrochlorothiazide] mg PO DAILY 06/15/19 [History] Past Medical History HEENT History: Reports: None Cardiovascular History: Reports: Hypertension Respiratory History: Reports: Other (See Below) Other Respiratory History: nodule on one lung Gastrointestinal History: Reports: Colon Polyp, GERD Genitourinary History: Reports: None Other Genitourinary History: recurrent bacterial vaginitis 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 Dermatologic History: Reports: None - Infectious Disease History Infectious Disease History: Reports: None - Past Surgical History Head Surgeries/Procedures: Reports: None HEENT Surgical History: Reports: Naso-Sinus Surgery Cardiovascular Surgical History: Reports: None Respiratory Surgical History: Reports: None Female Surgical History: Reports: Hysterectomy Neurological Surgical History: Reports: None Oncologic Surgical History: Reports: None Dermatological Surgical History: Reports: None Social & Family History - Family History Family Medical History: Noncontributory HEENT: Reports: Glaucoma Cardiac: Reports: Aneurysm, Hypertension GI: Reports: None : Reports: None OBGYN: Reports: Musculoskeletal: Reports: Arthritis Neurological: Reports: None Psychiatric: Reports: Bipolar Endocrine/Metabolic: Reports: None Hematologic: Reports: None Immunologic: Reports: None Dermatologic: Reports: None Oncologic: Reports: Lymphoma, Skin - Caffeine Use Caffeine Use: Reports: Coffee Review of Systems - Review of Systems Review Of Systems: ROS reveals no pertinent complaints other than HPI. ED EXAM, GENERAL - Physical Exam Exam: See Below (See dictation) Course - Vital Signs Last Recorded V/S: Last Vital Signs Temp 98.0 F 06/15/19 14:01 Pulse 95 06/15/19 14:01 Resp 18 06/15/19 14:01 BP 90/54 L 06/15/19 14:01 Pulse Ox 100 06/15/19 14:01 - Orders/Labs/Meds Labs: Laboratory Tests 06/15/19 06/15/19 Range/Units 14:15 14:15 WBC 7.69 (4.0-11.0) K/uL RBC 4.25 L (4.30-5.90) M/uL Hgb 14.4 (12.0-16.0) g/dL Hct 42.2 (36.0-46.0) % MCV 99.3 H (80.0-98.0) fL MCH 33.9 H (27.0-32.0) pg MCHC 34.1 (31.0-37.0) g/dL RDW Std Deviation 46.8 (28.0-62.0) fl RDW Coeff of Fidencio 13 (11.0-15.0) % Plt Count 256 (150-400) K/uL MPV 9.40 (7.40-12.00) fL Neut % (Auto) 66.4 (48.0-80.0) % Lymph % (Auto) 25.7 (16.0-40.0) % [place] % (Auto) 6.9 (0.0-15.0) % Eos % (Auto) 0.7 (0.0-7.0) % Baso % (Auto) 0.3 (0.0-1.5) % Neut # (Auto) 5.1 (1.4-5.7) K/uL Lymph # (Auto) 2.0 (0.6-2.4) K/uL [place] # (Auto) 0.5 (0.0-0.8) K/uL Eos # (Auto) 0.1 (0.0-0.7) K/uL Baso # (Auto) 0.0 (0.0-0.1) K/uL Nucleated RBC % 0.0 /100WBC Nucleated RBCs # 0 K/uL Sodium 145 (136-145) mmol/L Potassium 3.9 (3.5-5.1) mmol/L Chloride 105 (98-107) mmol/L Carbon Dioxide 26.9 (21.0-32.0) mmol/L BUN 12 (7.0-18.0) mg/dL Creatinine 0.9 (0.6-1.0) mg/dL Est Cr Clr Drug Dosing 63.14 mL/min Estimated GFR (MDRD) > 60.0 ml/min Glucose 133 H (74-106) mg/dL Uric Acid 6.7 (2.6-7.2) mg/dL Calcium 9.2 (8.5-10.1) mg/dL Total Bilirubin 0.2 (0.2-1.0) mg/dL AST 30 (15-37) IU/L ALT 32 (14-63) IU/L Alkaline Phosphatase 99 (46-116) U/L Total Protein 7.1 (6.4-8.2) g/dL Albumin 3.6 (3.4-5.0) g/dL Globulin 3.5 (2.6-4.0) g/dL Albumin/Globulin Ratio 1.0 (0.9-1.6) Meds: Medications Discontinued Medications Generic Name Dose Route Start Last Admin Trade Name Freq PRN Reason Stop Dose Admin Ketorolac Tromethamine 60 mg 06/15/19 14:07 06/15/19 14:28 Toradol IM 06/15/19 14:08 60 mg ONETIME ONE Administration Departure - Departure Time of Disposition: 15:19 Disposition: Home, Self-Care 01 Condition: Good Clinical Impression: Left foot pain - Discharge Information Referrals: PCP,None [Primary Care Provider] - Forms: ED Department Discharge Additional Instructions: The following information is given to patients seen in the emergency department who are being discharged to home. This information is to outline your options for follow-up care. We provide all patients seen in our emergency department with a follow-up referral. The need for follow-up, as well as the timing and circumstances, are variable depending upon the specifics of your emergency department visit. If you don't have a primary care physician on staff, we will provide you with a referral. We always advise you to contact your personal physician following an emergency department visit to inform them of the circumstance of the visit and for follow-up with them and/or the need for any referrals to a consulting specialist. The emergency department will also refer you to a specialist when appropriate. This referral assures that you have the opportunity for follow-up care with a specialist. All of these measure are taken in an effort to provide you with optimal care, which includes your follow-up. Under all circumstances we always encourage you to contact your private physician who remains a resource for coordinating your care. When calling for follow-up care, please make the office aware that this follow-up is from your recent emergency room visit. If for any reason you are refused follow-up, please contact the [facility] Emergency Department at and asked to speak to the emergency department charge nurse. [facility] [address] [place] [id number] [facility] [address] [place] [id number] [facility] [address] [place] [address] 1. Ice, elevate, and motrin or tylenol as needed 2. Follow up with podiatry, please call the number provided to schedule an appointment 3. Return to ED as needed as discussed
[2019-06-15 14:43] LABS: BLOOD UREA NITROGEN,BUN 12 mg/dL (7.0-18.0); CARBON DIOXIDE,CO2 26.9 mmol/L (21.0-32.0); CHLORIDE,CL 105 mmol/L (98-107); GLUCOSE RANDOM 133 mg/dL (74-106); POTASSIUM,K 3.9 mmol/L (3.5-5.1); SODIUM,NA 145 mmol/L (136-145)
--- NOTE | 2019-06-15 14:52 | CR ---
Indication: Injury and pain Technique: Left ankle 3 views. Comparison: None Findings: Bones: Alignment is normal. No fractures or bone lesions. Joint spaces: Unremarkable. Soft tissues: Unremarkable. Impression: No sign of acute injury. Dictated by Benedicto Harden MD @ Jun 15 2019 2:49PM Signed by Dr. Benedicto Harden @ Jun 15 2019 2:50PM
--- NOTE | 2019-06-15 14:54 | CR ---
Indication: Injury and pain Technique: Left foot 2 views Comparison: None Findings: Bones: Alignment is normal. No fractures or bone lesions. Joint spaces: Mild arthritic changes are in the IP joints. Soft tissues: Unremarkable. Impression: No sign of acute injury. Dictated by Benedicto Harden MD @ Jun 15 2019 2:51PM Signed by Dr. Benedicto Harden @ Jun 15 2019 2:53PM
== END 2019-06-15 16:01 | disposition home or self-care (01) ==
LOC: MW.ED 13:45
DX: M25.572 Pain in left ankle and joints of left foot (principal); I10 Essential (primary) hypertension; Z90.710 Acquired absence of both cervix and uterus; Z79.899 Other long term (current) drug therapy; Z88.2 Allergy status to sulfonamides; Z88.8 Allergy status to other drugs, medicaments and biological substances
CPT/HCPCS: 36415; 73610; 73620; 80053; 84550; 85025; 96372; 99283; J1885; 99284

== ENCOUNTER 2020-05-20 11:04 | Emergency (ER) | payer BC, OTHER ==
[2020-05-20] MEDS ORDERED: Ketorolac 60 MG/2 ML SDV IM ONE (11:38)
[2020-05-20] MEDS ORDERED: Orphenadrine 60 MG/2 ML Inj IM ONE (11:38)
[2020-05-20] MEDS ORDERED: methylPREDNISolone Sodium Succinate 125 MG/2 ML SDV IVPUSH ONE (11:38)
[2020-05-20] MEDS ORDERED: methylPREDNISolone Sodium Succinate 125 MG/2 ML SDV IM ONE (11:41)
--- NOTE | 2020-05-20 11:58 | EDM.PDOC ---
ED HPI GENERAL MEDICAL PROBLEM - General Chief Complaint: Back Pain or Injury Stated Complaint: BACK PAIN INTO LT LEG Time Seen by Provider: 05/20/20 11:06 Source of Information: Reports: Patient History Limitations: Reports: No Limitations - History of Present Illness INITIAL COMMENTS - FREE TEXT/NARRATIVE: HISTORY AND PHYSICAL: History of present illness: Patient is a 54-year-old female who presents to the ED today with concern of low back pain over the past 3 to 4 weeks. Patient states she has been to the chiropractor a few times without relief of symptoms. Patient states that she has not seen her primary care provider for her low back pain. Patient states that the pain does radiate into the right leg and is worse with movement and better with rest. Patient denies any trauma or injury to her back. Patient denies any saddle anesthesia or loss or retention of bowel bladder function. Patient denies fever, chills, chest pain, shortness of breath, or cough. Denies headache, neck stiff ness, change in vision, syncope, or near syncope. Denies nausea, vomiting, abdominal pain, diarrhea, constipation, or dysuria. Has not noted any blood in urine or stool. Patient has been eating and drinking appropriately. Review of systems: As per history of present illness and below otherwise all systems reviewed and negative. Past medical history: As per history of present illness and as reviewed below otherwise noncontributory. Surgical history: As per history of present illness and as reviewed below otherwise noncontributory. Social history: See social history for further information Family history: As per history of present illness and as reviewed below otherwise noncontributory. Physical exam: General: Patient is alert, oriented, and in no acute distress. Patient sitting comfortably on exam table. HEENT: Atraumatic, normocephalic, pupils equal and reactive bilaterally, negative for conjunctival pallor or scleral icterus, mucous membranes moist, TMs normal bilaterally, throat clear, neck supple, nontender, trachea midline. No drooling or trismus noted. No meningeal signs. No hot potato voice noted. Lungs: Clear to auscultation, breath sounds equal bilaterally, chest nontender. Heart: S1S2, regular rate and rhythm without overt murmur Abdomen: Soft, nondistended, nontender. Negative for masses or hepatosplenomegaly. Negative for costovertebral tenderness. Pelvis: Stable nontender. Genitourinary: Deferred. Rectal: Deferred. Skin: Intact, warm, dry. No lesions or rashes noted. Extremities/musculoskeletal: No obvious deformity of the complete spine. No step-offs, crepitus to palpation of the spine. Patient does have moderate pain with palpation of the lumbar spine with limited range of motion of the lumbar spine due to pain. Patient able to ambulate but does have pain with doing so. Tiptoe and heel gait intact. Patellar reflexes intact bilaterally. Otherwise, atraumatic, negative for cords or calf pain. Neurovascular unremarkable. Neuro: Awake, alert, oriented. Cranial nerves II through XII unremarkable. Cerebellum unremarkable. Motor and sensory unremarkable throughout. Exam nonfocal. Notes: Discussed importance for follow-up with a primary care provider. Signs and symptoms that would prompt return to the ED thoroughly discussed with patient. Voices understanding and is agreeable to plan of care. Denies any further questions or concerns at this time. Diagnostics: UA, urine hCG, lumbar x-ray Therapeutics: Solumedrol, Toradol, Norflex Prescription: Diclofenac, Flexeril Impression: Low back pain Urinary tract infection Plan: 1. The medication you received today does cause drowsiness, so do not drive for the remaining day. 2. When resting please lay on a flat firm surface. Limit your mobility to prev ent muscle stiffness. Get up to ambulate/move around/gentle stretching multiple times throughout the day. May alternate heat and ice to painful areas. 3. Tylenol as needed for back pain. Otherwise, take the prescribed Flexeril and diclofenac as directed. Diclofenac as an anti-inflammatory medication so do not take any additional NSAIDs with this medication, such as naproxen, ibuprofen, or Aleve. Flexeril, this medication may cause drowsiness, so do not take it while driving or needing to be functioning outside of the home. 4. Follow-up with your primary care provider as discussed. Return to the ED as needed and as discussed. Definitive disposition and diagnosis as appropriate pending reevaluation and review of above. lower back Pain Score (Numeric/FACES): 10 - Related Data Allergies Allergy/AdvReac Type Severity Reaction Status Date / Time Iodine and Iodide Containing Allergy Mild Hives Verified 05/20/20 11:17 Produc Sulfa (Sulfonamide AdvReac Vomiting Verified 08/06/20 11:17 Antibiotics) sumatriptan [From Imitrex] AdvReac Tachycardia Verified 05/20/20 11:17 sumatriptan succinate AdvReac Tachycardia Verified 05/20/20 11:17 [From Imitrex] Home Meds: Home Meds Levothyroxine [Synthroid] 75 mcg PO DAILY 01/14/14 [History] hydroCHLOROthiazide [Hydrochlorothiazide] 1 tab PO DAILY 06/15/19 [History] Cyclobenzaprine [Flexeril] 10 mg PO TID PRN #9 tab 05/20/20 [Rx] Diclofenac Sodium [Voltaren] 75 mg PO BIDMEALS PRN #15 tab.cr 05/20/20 [Rx] Nitrofurantoin Monohyd/M-Cryst [Macrobid 100 mg Capsule] 100 mg PO BID 5 Days #10 capsule 05/20/20 [Rx] amLODIPine [Norvasc] 2.5 mg PO DAILY 05/20/20 [History] Past Medical History HEENT History: Reports: None Cardiovascular History: Reports: Hypertension Respiratory History: Reports: Other (See Below) Other Respiratory History: nodule on one lung Gastrointestinal History: Reports: Colon Polyp, GERD Genitourinary History: Reports: None Other Genitourinary History: recurrent bacterial vaginitis [employer] History: Reports: 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 Dermatologic History: Reports: None - Infectious Disease History Infectious Disease History: Reports: None - Past Surgical History Head Surgeries/Procedures: Reports: None HEENT Surgical History: Reports: Naso-Sinus Surgery Cardiovascular Surgical History: Reports: None Respiratory Surgical History: Reports: None Female Surgical History: Reports: Hysterectomy Neurological Surgical History: Reports: None Oncologic Surgical History: Reports: None Dermatological Surgical History: Reports: None Social & Family History - Family History Family Medical History: Noncontributory HEENT: Reports: Glaucoma Cardiac: Reports: Aneurysm, Hypertension GI: Reports: None : Reports: None OBGYN: Reports: Musculoskeletal: Reports: Arthritis Neurological: Reports: None Psychiatric: Reports: Bipolar Endocrine/Metabolic: Reports: None Hematologic: Reports: None Immunologic: Reports: None Dermatologic: Reports: None Oncologic: Reports: Lymphoma, Skin - Tobacco Use Smoking Status *Q: Current Every Day Smoker Years of Tobacco use: 38 Packs/Tins Daily: 0.5 - Caffeine Use Caffeine Use: Reports: None - Recreational Drug Use Recreational Drug Use: No ED ROS GENERAL - Review of Systems Review Of Systems: Comprehensive ROS is negative, except as noted in HPI. ED EXAM, GENERAL - Physical Exam Exam: See Below (See dictation) Course - Vital Signs Last Recorded V/S: Last Vital Signs Temp 98.0 F 05/20/20 11:18 Pulse 78 05/20/20 11:18 Resp 18 05/20/20 11:18 BP 139/88 05/20/20 11:18 Pulse Ox 97 05/20/20 11:18 - Orders/Labs/Meds Orders: Active Orders 24 hr Category Date Time Status CULTURE URINE [RM] Stat Lab 05/20/20 12:15 Received Labs: Laboratory Tests 05/20/20 05/20/20 Range/Units 12:14 12:15 Urine Color YELLOW Urine Appearance CLEAR Urine pH 6.0 (5.0-8.0) Ur Specific [place] 1.015 (1.001-1.035) Urine Protein NEGATIVE (NEGATIVE) mg/dL Urine Glucose (UA) NEGATIVE (NEGATIVE) mg/dL Urine Ketones NEGATIVE (NEGATIVE) mg/dL Urine Occult Blood NEGATIVE (NEGATIVE) Urine Nitrite NEGATIVE (NEGATIVE) Urine Bilirubin NEGATIVE (NEGATIVE) Urine Urobilinogen 0.2 (<2.0) EU/dL Ur Leukocyte Esterase SMALL H (NEGATIVE) Urine RBC NONE SEEN (0-2/HPF) Urine WBC 2-4 (0-5/HPF) Ur Epithelial Cells FEW (NONE-FEW) Urine Bacteria FEW (NEGATIVE) Urine Mucus LIGHT (NONE-MOD) Urine HCG, Qual NEGATIVE (NEGATIVE) Meds: Medications Discontinued Medications Generic Name Dose Route Start Last Admin Trade Name Freq PRN Reason Stop Dose Admin Ketorolac Tromethamine 60 mg 05/20/20 11:38 05/20/20 11:53 Toradol IM 05/20/20 11:39 60 mg ONETIME ONE Administration Methylprednisolone Sodium Succinate 125 mg 05/20/20 11:38 05/20/20 11:59 Solu-Medrol IVPUSH 05/20/20 11:39 Not Given ONETIME ONE Methylprednisolone Sodium Succinate 125 mg 05/20/20 11:41 05/20/20 11:54 Solu-Medrol IM 05/20/20 11:42 125 mg ONETIME ONE Administration Orphenadrine Citrate 60 mg 05/20/20 11:38 05/20/20 11:53 Norflex IM 05/20/20 11:39 60 mg ONETIME ONE Administration Departure - Departure Time of Disposition: 13:23 Disposition: Home, Self-Care 01 Clinical Impression: Low back pain Qualifiers: Chronicity: acute Back pain laterality: midline Sciatica presence: unspecified whether sciatica present Qualified Code(s): M54.5 - Low back pain Urinary tract infection Qualifiers: Urinary tract infection type: acute cystitis Hematuria presence: without hematuria Qualified Code(s): N30.00 - Acute cystitis without hematuria - Discharge Information Prescriptions: Cyclobenzaprine [Flexeril] 10 mg PO TID PRN #9 tab PRN Reason: Spasms Nitrofurantoin Monohyd/M-Cryst [Macrobid 100 mg Capsule] 100 mg PO BID 5 Days #10 capsule Diclofenac Sodium [Voltaren] 75 mg PO BIDMEALS PRN #15 tab.cr PRN Reason: Pain Referrals: Rafi Lobato MD [Primary Care Provider] - Forms: ED Department Discharge Additional Instructions: The following information is given to patients seen in the emergency department who are being discharged to home. This information is to outline your options for follow-up care. We provide all patients seen in our emergency department with a follow-up referral. The need for follow-up, as well as the timing and circumstances, are variable depending upon the specifics of your emergency department visit. If you don't have a primary care physician on staff, we will provide you with a referral. We always advise you to contact your personal physician following an emergency department visit to inform them of the circumstance of the visit and for follow-up with them and/or the need for any referrals to a consulting specialist. The emergency department will also refer you to a specialist when appropriate. This referral assures that you have the opportunity for follow-up care with a specialist. All of these measure are taken in an effort to provide you with optimal care, which includes your follow-up. Under all circumstances we always encourage you to contact your private physician who remains a resource for coordinating your care. When calling for follow-up care, please make the office aware that this follow-up is from your recent emergency room visit. If for any reason you are refused follow-up, please contact the [facility] Emergency Department at and asked to speak to the emergency department charge nurse. [facility] [address] [place] [address] [facility] [address] [place] [address] 1. The medication you received today does cause drowsiness, so do not drive for the remaining day. 2. When resting please lay on a flat firm surface. Limit your mobility to prevent muscle stiffness. Get up to ambulate/move around/gentle stretching multiple times throughout the day. May alternate heat and ice to painful areas. 3. Tylenol as needed for back pain. Otherwise, take the prescribed Flexeril and diclofenac as directed. Diclofenac as an anti-inflammatory medication so do not take any additional NSAIDs with this medication, such as naproxen, ibuprofen, or Aleve. Flexeril, this medication may cause drowsiness, so do not take it while driving or needing to be functioning outside of the home. 4. Follow-up with your primary care provider as discussed. Return to the ED as needed and as discussed. Sepsis Event Note (ED) - Evaluation Sepsis Screening Result: No Definite Risk - Focused Exam Vital Signs: Vital Signs Temp Pulse Resp BP Pulse Ox 05/20/20 11:18 98.0 F 78 18 139/88 97 - My Orders Last 24 Hours: My Active Orders 05/20/20 12:15 CULTURE URINE [RM] Stat - Assessment/Plan Last 24 Hours: My Active Orders 05/20/20 12:15 CULTURE URINE [RM] Stat
--- NOTE | 2020-05-20 12:00 | CR ---
Lumbar spine: AP, lateral and coned-down lateral view centered to the lumbosacral junction were obtained. Slight inferior endplate concavity seen within L1. Uncertain as to age of this finding. Other vertebral body heights are maintained. Disc spaces are fairly well preserved. Minimal scoliosis is noted. Pedicles are intact. Visualized transverse and spinous processes are intact. Slight atherosclerotic change is noted within the abdominal aorta. Impression: 1. Slight inferior endplate concavity of L1, uncertain as to age. 2. Other findings believed to be incidental. Diagnostic code #3 This report was dictated in MDT
[2020-05-20 13:37] VITALS: BP 136/96; PULSE 67
== END 2020-05-20 13:32 | disposition home or self-care (01) ==
LOC: MW.ED 11:04
DX: N30.00 Acute cystitis without hematuria (principal); I10 Essential (primary) hypertension; E03.9 Hypothyroidism, unspecified; Z79.899 Other long term (current) drug therapy; Z91.041 Radiographic dye allergy status; Z88.2 Allergy status to sulfonamides; Z88.8 Allergy status to other drugs, medicaments and biological substances; Z91.048 Other nonmedicinal substance allergy status
CPT/HCPCS: 72100; 81001; 81025; 87086; 96372; 99283; J1885; J2360; J2930

== ENCOUNTER 2020-07-05 07:51 | Emergency (ER) | payer OTHER ==
[2020-07-05] MEDS ORDERED: Sodium Chloride 0.9% 2.5 ML Syringe FLUSH PRN (08:23)
[2020-07-05] MEDS ORDERED: Sodium Chloride 0.9% 10 ML Syringe FLUSH PRN (08:23)
[2020-07-05] MEDS ORDERED: Ketorolac 15 MG/ML SDV IM ONE (08:23)
--- NOTE | 2020-07-05 08:30 | EDM.PDOC ---
ED HPI GENERAL MEDICAL PROBLEM - General Chief Complaint: Flank Pain Stated Complaint: LOWER RT BACK PAIN Time Seen by Provider: 07/05/20 08:12 - History of Present Illness INITIAL COMMENTS - FREE TEXT/NARRATIVE: History of present illness: Patient presents the ED with right flank pain that she woke up with this morning no injuries no heavy lifting no fever no chills no cough no shortness of breath no calf pain no leg pain no leg swelling she is not had this pain before is described as sharp it is worse with a deep breath or movement she denies ever having blood clots before no recent immobilization no prior history of cancer. Review of systems: As per history of present illness and below otherwise all systems reviewed and negative. Past medical history: As per history of present illness and as reviewed below otherwise noncontributory. Surgical history: As per history of present illness and as reviewed below otherwise noncontributory. Social history: No reported history of drug or alcohol abuse. Family history: As per history of present illness and as reviewed below otherwise noncontributory. Physical exam: HEENT: Atraumatic, normocephalic, pupils reactive, negative for conjunctival pallor or scleral icterus, mucous membranes moist, throat clear, neck supple, nontender, trachea midline. Lungs: Clear to auscultation, breath sounds equal bilaterally, chest nontender. Heart: S1S2, regular, negative for clicks, rubs, or JVD. Abdomen: Soft, nondistended, nontender. Negative for masses or hepatosplenomegaly. Negative for costovertebral tenderness. Pelvis: Stable nontender. Genitourinary: Deferred. Rectal: Deferred. Extremities: Atraumatic, negative for cords or calf pain. Neurovascular unremarkable. Neuro: Awake, alert, oriented. Cranial nerves II through XII unremarkable. Cerebellum unremarkable. Motor and sensory unremarkable throughout. Exam nonfocal. Back: There is some tenderness and spasm at the level of T12 and L1 on the right and it is tender lateral to the spinal column at this level no rashes noted Diagnostics: [] Therapeutics: [] Impression: Flank Pain [] Plan: Patient has normal vital signs we will check labs EKG chest x-ray d-dimer and reassess the patient after giving Toradol [] Definitive disposition and diagnosis as appropriate pending reevaluation and review of above. right kidney Pain Score (Numeric/FACES): 10 - Related Data Allergies Allergy/AdvReac Type Severity Reaction Status Date / Time Iodine and Iodide Containing Allergy Mild Hives Verified 07/05/20 08:03 Produc Sulfa (Sulfonamide AdvReac Vomiting Verified 07/05/20 08:03 Antibiotics) sumatriptan [From Imitrex] AdvReac Tachycardia Verified 07/05/20 08:03 sumatriptan succinate AdvReac Tachycardia Verified 07/05/20 08:03 [From Imitrex] Home Meds: Home Meds Levothyroxine [Synthroid] 75 mcg PO DAILY 01/14/14 [History] hydroCHLOROthiazide [Hydrochlorothiazide] 25 mg PO DAILY 06/15/19 [History] amLODIPine [Norvasc] 5 mg PO DAILY 05/20/20 [History] Cyclobenzaprine [Flexeril] 10 mg PO TID #30 tab 07/05/20 [Rx] Naproxen [Naprosyn] 500 mg PO Q12HR #20 tab 07/05/20 [Rx] Past Medical History HEENT History: Reports: None Cardiovascular History: Reports: Hypertension Respiratory History: Reports: Other (See Below) Other Respiratory History: nodule on one lung Gastrointestinal History: Reports: Colon Polyp, GERD Genitourinary History: Reports: None Other Genitourinary History: recurrent bacterial vaginitis FOLLOW UP REP History: Reports: 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 Dermatologic History: Reports: None - Infectious Disease History Infectious Disease History: Reports: None - Past Surgical History Head Surgeries/Procedures: Reports: None HEENT Surgical History: Reports: Naso-Sinus Surgery Cardiovascular Surgical History: Reports: None Respiratory Surgical History: Reports: None GI Surgical History: Reports: Cholecystectomy Female Surgical History: Reports: Hysterectomy Neurological Surgical History: Reports: None Oncologic Surgical History: Reports: None Dermatological Surgical History: Reports: None Social & Family History - Family History Family Medical History: Noncontributory HEENT: Reports: Glaucoma Cardiac: Reports: Aneurysm, Hypertension GI: Reports: None : Reports: None OBGYN: Reports: Musculoskeletal: Reports: Arthritis Neurological: Reports: None Psychiatric: Reports: Bipolar Endocrine/Metabolic: Reports: None Hematologic: Reports: None Immunologic: Reports: None Dermatologic: Reports: None Oncologic: Reports: Lymphoma, Skin - Tobacco Use Smoking Status *Q: Current Every Day Smoker Years of Tobacco use: 30 Packs/Tins Daily: 0.5 - Caffeine Use Caffeine Use: Reports: None - Alcohol Use Days Per Week of Alcohol Use: 7 Number of Drinks Per Day: 4 Total Drinks Per Week: 28 - Recreational Drug Use Recreational Drug Use: No ED ROS GENERAL - Review of Systems Review Of Systems: See Below ED EXAM, GENERAL - Physical Exam Exam: See Below EKG INTERPRETATION EKG Interpretation Comments: EKG is a normal sinus rhythm rate of 69 bpm normal axis normal intervals no ischemia normal EKG read and interpreted by me Course - Vital Signs Text/Narrative:: One-view portable chest read interpreted by me no acute cardiopulmonary pathology is evident The CT angios of the chest is negative for pulmonary embolus or other acute pathology the urine is clean lab work is unremarkable patient is tender and spasming on that side I will give her some Ativan for spasm discharged home on naproxen and Flexeril follow-up with primary care doctor. Last Recorded V/S: Last Vital Signs Temp 36.7 C 07/05/20 07:58 Pulse 88 07/05/20 07:58 Resp 16 07/05/20 07:58 BP 122/87 07/05/20 07:58 Pulse Ox 98 07/05/20 07:58 - Orders/Labs/Meds Orders: Active Orders 24 hr Category Date Time Status EKG 12 Lead [EKG Documentation Completion] [RC] STAT Care 07/05/20 08:30 Active Sodium Chloride 0.9% [Saline Flush] Med 07/05/20 08:23 Active 10 ml FLUSH ASDIRECTED PRN Sodium Chloride 0.9% [Saline Flush] Med 07/05/20 08:23 Active 2.5 ml FLUSH ASDIRECTED PRN Saline Lock Insert [OM.PC] Stat Oth 07/05/20 08:23 Ordered Medication Orders Sodium Chloride (Saline Flush) 10 ml FLUSH ASDIRECTED PRN PRN Reason: Keep Vein Open Last Admin: 07/05/20 08:36 Dose: 10 ml Documented by: [place] Sodium Chloride (Saline Flush) 2.5 ml FLUSH ASDIRECTED PRN PRN Reason: Keep Vein Open Last Admin: 07/05/20 08:36 Dose: 2.5 ml Documented by: [place] Labs: Laboratory Tests 07/05/20 07/05/20 07/05/20 Range/Units 08:08 08:10 08:10 WBC 5.25 (4.0-11.0) K/uL RBC 4.40 (4.30-5.90) M/uL Hgb 14.8 (12.0-16.0) g/dL Hct 44.0 (36.0-46.0) % MCV 100.0 H (80.0-98.0) fL MCH 33.6 H (27.0-32.0) pg MCHC 33.6 (31.0-37.0) g/dL RDW Std Deviation 47.2 (28.0-62.0) fl RDW Coeff of Fidencio 13 (11.0-15.0) % Plt Count 241 (150-400) K/uL MPV 9.90 (7.40-12.00) fL Neut % (Auto) 46.3 L (48.0-80.0) % Lymph % (Auto) 37.3 (16.0-40.0) % [place] % (Auto) 14.3 (0.0-15.0) % Eos % (Auto) 1.7 (0.0-7.0) % Baso % (Auto) 0.4 (0.0-1.5) % Neut # (Auto) 2.4 (1.4-5.7) K/uL Lymph # (Auto) 2.0 (0.6-2.4) K/uL [place] # (Auto) 0.8 (0.0-0.8) K/uL Eos # (Auto) 0.1 (0.0-0.7) K/uL Baso # (Auto) 0.0 (0.0-0.1) K/uL Nucleated RBC % 0.0 /100WBC Nucleated RBCs # 0 K/uL D-Dimer, Quantitative 0.58 H (0.0-0.50) mg/L FEU Sodium (136-145) mmol/L Potassium (3.5-5.1) mmol/L Chloride (98-107) mmol/L Carbon Dioxide (21.0-32.0) mmol/L BUN (7.0-18.0) mg/dL Creatinine (0.6-1.0) mg/dL Est Cr Clr Drug Dosing mL/min Estimated GFR (MDRD) ml/min Glucose (74-106) mg/dL Calcium (8.5-10.1) mg/dL Total Bilirubin (0.2-1.0) mg/dL AST (15-37) IU/L ALT (14-63) IU/L Alkaline Phosphatase (46-116) U/L Total Protein (6.4-8.2) g/dL Albumin (3.4-5.0) g/dL Globulin (2.6-4.0) g/dL Albumin/Globulin Ratio (0.9-1.6) Urine Color YELLOW Urine Appearance CLEAR Urine pH 7.0 (5.0-8.0) Ur Specific [place] 1.010 (1.001-1.035) Urine Protein NEGATIVE (NEGATIVE) mg/dL Urine Glucose (UA) NEGATIVE (NEGATIVE) mg/dL Urine Ketones NEGATIVE (NEGATIVE) mg/dL Urine Occult Blood NEGATIVE (NEGATIVE) Urine Nitrite NEGATIVE (NEGATIVE) Urine Bilirubin NEGATIVE (NEGATIVE) Urine Urobilinogen 0.2 (<2.0) EU/dL Ur Leukocyte Esterase TRACE H (NEGATIVE) Urine RBC 0-2 (0-2/HPF) Urine WBC 2-5 (0-5/HPF) Ur Epithelial Cells OCCASIONAL (NONE-FEW) Urine Bacteria RARE (NEGATIVE) 07/05/20 Range/Units 08:10 WBC (4.0-11.0) K/uL RBC (4.30-5.90) M/uL Hgb (12.0-16.0) g/dL Hct (36.0-46.0) % MCV (80.0-98.0) fL MCH (27.0-32.0) pg MCHC (31.0-37.0) g/dL RDW Std Deviation (28.0-62.0) fl RDW Coeff of Fidencio (11.0-15.0) % Plt Count (150-400) K/uL MPV (7.40-12.00) fL Neut % (Auto) (48.0-80.0) % Lymph % (Auto) (16.0-40.0) % [place] % (Auto) (0.0-15.0) % Eos % (Auto) (0.0-7.0) % Baso % (Auto) (0.0-1.5) % Neut # (Auto) (1.4-5.7) K/uL Lymph # (Auto) (0.6-2.4) K/uL [place] # (Auto) (0.0-0.8) K/uL Eos # (Auto) (0.0-0.7) K/uL Baso # (Auto) (0.0-0.1) K/uL Nucleated RBC % /100WBC Nucleated RBCs # K/uL D-Dimer, Quantitative (0.0-0.50) mg/L FEU Sodium 141 (136-145) mmol/L Potassium 3.5 (3.5-5.1) mmol/L Chloride 102 (98-107) mmol/L Carbon Dioxide 27.1 (21.0-32.0) mmol/L BUN 7 (7.0-18.0) mg/dL Creatinine 0.8 (0.6-1.0) mg/dL Est Cr Clr Drug Dosing 70.23 mL/min Estimated GFR (MDRD) > 60.0 ml/min Glucose 95 (74-106) mg/dL Calcium 9.3 (8.5-10.1) mg/dL Total Bilirubin 0.2 (0.2-1.0) mg/dL AST 35 (15-37) IU/L ALT 37 (14-63) IU/L Alkaline Phosphatase 117 H (46-116) U/L Total Protein 7.5 (6.4-8.2) g/dL Albumin 3.9 (3.4-5.0) g/dL Globulin 3.6 (2.6-4.0) g/dL Albumin/Globulin Ratio 1.1 (0.9-1.6) Urine Color Urine Appearance Urine pH (5.0-8.0) Ur Specific [place] (1.001-1.035) Urine Protein (NEGATIVE) mg/dL Urine Glucose (UA) (NEGATIVE) mg/dL Urine Ketones (NEGATIVE) mg/dL Urine Occult Blood (NEGATIVE) Urine Nitrite (NEGATIVE) Urine Bilirubin (NEGATIVE) Urine Urobilinogen (<2.0) EU/dL Ur Leukocyte Esterase (NEGATIVE) Urine RBC (0-2/HPF) Urine WBC (0-5/HPF) Ur Epithelial Cells (NONE-FEW) Urine Bacteria (NEGATIVE) Meds: Medications Generic Name Dose Route Start Last Admin Trade Name Edwige PRN Reason Stop Dose Admin Sodium Chloride 10 ml 07/05/20 08:23 07/05/20 08:36 Saline Flush FLUSH 10 ml ASDIRECTED PRN Administration Keep Vein Open Sodium Chloride 2.5 ml 07/05/20 08:23 07/05/20 08:36 Saline Flush FLUSH 2.5 ml ASDIRECTED PRN Administration Keep Vein Open Discontinued Medications Generic Name Dose Route Start Last Admin Trade Name Edwige PRN Reason Stop Dose Admin Dexamethasone 10 mg 07/05/20 09:24 07/05/20 09:41 Dexamethasone IVPUSH 07/05/20 09:25 10 mg ONETIME ONE Administration Diphenhydramine HCl 50 mg 07/05/20 09:24 07/05/20 09:35 Benadryl IVPUSH 07/05/20 09:25 50 mg ONETIME ONE Administration Famotidine 20 mg 07/05/20 09:24 07/05/20 09:33 Pepcid IVPUSH 07/05/20 09:25 20 mg ONETIME ONE Administration Ibuprofen 800 mg 07/05/20 09:20 07/05/20 09:34 Motrin PO 07/05/20 09:21 800 mg ONETIME ONE Administration Ketorolac Tromethamine 30 mg 07/05/20 08:32 07/05/20 08:35 Toradol IVPUSH 07/05/20 08:33 Not Given ONETIME ONE Lorazepam 1 mg 07/05/20 10:52 Ativan IVPUSH 07/05/20 10:53 ONETIME ONE Departure - Departure Time of Disposition: 10:55 Disposition: Home, Self-Care 01 Condition: Good Clinical Impression: Muscle strain - Discharge Information *PRESCRIPTION DRUG MONITORING PROGRAM REVIEWED*: Not Applicable *COPY OF PRESCRIPTION DRUG MONITORING REPORT IN PATIENT [place]: Not Applicable Prescriptions: Cyclobenzaprine [Flexeril] 10 mg PO TID #30 tab Naproxen [Naprosyn] 500 mg PO Q12HR #20 tab Instructions: Flank Pain, Adult, [id number] Referrals: Rafi Lobato MD [Primary Care Provider] - Forms: ED Department Discharge Additional Instructions: The following information is given to patients seen in the emergency department who are being discharged to home. This information is to outline your options for follow-up care. We provide all patients seen in our emergency department wit h a follow-up referral. The need for follow-up, as well as the timing and circumstances, are variable depending upon the specifics of your emergency department visit. If you don't have a primary care physician on staff, we will provide you with a referral. We always advise you to contact your personal physician following an emergency department visit to inform them of the circumstance of the visit and for follow-up with them and/or the need for any referrals to a consulting specialist. The emergency department will also refer you to a specialist when appropriate. This referral assures that you have the opportunity for follow-up care with a specialist. All of these measure are taken in an effort to provide you with optimal care, which includes your follow-up. Under all circumstances we always encourage you to contact your private physician who remains a resource for coordinating your care. When calling for follow-up care, please make the office aware that this follow-up is from your recent emergency room visit. If for any reason you are refused follow-up, please contact the [facility] Emergency Department at and asked to speak to the emergency department charge nurse. [facility] - Primary Care [address] [place] [id number] [id number] Sepsis Event Note (ED) - Evaluation Sepsis Screening Result: No Definite Risk - Focused Exam Vital Signs: Vital Signs Temp Pulse Resp BP Pulse Ox 07/05/20 07:58 36.7 C 88 16 122/87 98 - My Orders Last 24 Hours: My Active Orders 07/05/20 08:23 Sodium Chloride 0.9% [Saline Flush] 10 ml FLUSH ASDIRECTED PRN Sodium Chloride 0.9% [Saline Flush] 2.5 ml FLUSH ASDIRECTED PRN Saline Lock Insert [OM.PC] Stat 07/05/20 08:30 EKG 12 Lead [EKG Documentation Completion] [RC] STAT - Assessment/Plan Last 24 Hours: My Active Orders 07/05/20 08:23 Sodium Chloride 0.9% [Saline Flush] 10 ml FLUSH ASDIRECTED PRN Sodium Chloride 0.9% [Saline Flush] 2.5 ml FLUSH ASDIRECTED PRN Saline Lock Insert [OM.PC] Stat 07/05/20 08:30 EKG 12 Lead [EKG Documentation Completion] [RC] STAT
[2020-07-05] MEDS ORDERED: Ketorolac 30 MG/ML SDV IVPUSH ONE (08:32)
[2020-07-05 08:43] LABS: BLOOD UREA NITROGEN,BUN 7 mg/dL (7.0-18.0); CARBON DIOXIDE,CO2 27.1 mmol/L (21.0-32.0); CHLORIDE,CL 102 mmol/L (98-107); GLUCOSE RANDOM 95 mg/dL (74-106); POTASSIUM,K 3.5 mmol/L (3.5-5.1); SODIUM,NA 141 mmol/L (136-145)
--- NOTE | 2020-07-05 09:00 | CR ---
Chest: Portable view of the chest was obtained. Comparison: Prior chest x-ray of 02/02/18. Heart size and mediastinum are normal. Lungs are somewhat hyperinflated raising the possibility of emphysematous change. No acute parenchymal change is seen. Bony structures shows mild scoliosis and degenerative change within the spine. Impression: 1. Probable emphysematous change. 2. Nothing acute is seen on portable chest x-ray. Diagnostic code #2 This report was dictated in MDT
[2020-07-05] MEDS ORDERED: Ibuprofen 800 MG Tab PO ONE (09:20)
[2020-07-05] MEDS ORDERED: diphenhydrAMINE 50 MG/ML SDV IVPUSH ONE (09:24)
[2020-07-05] MEDS ORDERED: Famotidine 20 MG/2 ML SDV IVPUSH ONE (09:24)
[2020-07-05] MEDS ORDERED: Dexamethasone 10 MG/ML SDV IVPUSH ONE (09:24)
--- NOTE | 2020-07-05 10:37 | CT ---
CT chest Technique: Multiple axial sections through the chest are obtained. Intravenous contrast was utilized. Study performed as a pulmonary angiogram protocol. Comparison: Prior chest x-ray performed earlier on the same day (8:40 AM). Findings: Pulmonary arteries are well-opacified. No filling defects are seen to indicate pulmonary embolism. Aorta shows mild atherosclerotic calcification without aneurysm. Mediastinum and hilar regions show no adenopathy. No pericardial thickening. Visualized upper abdominal structures show nothing acute. Lung window settings were reviewed. Slight scarring noted within both lung apices. Lungs show no acute parenchymal change. No pleural effusions are seen. Bone window settings were reviewed. Mild degenerative change scattered within spine with disc space narrowing and minimal anterior osteophytes. No acute osseous finding is seen. Impression: 1. No findings of pulmonary embolism. 2. Other nonacute findings as noted above. Diagnostic code #2 This report was dictated in MDT
[2020-07-05] MEDS ORDERED: LORazepam 2 MG/ML SDV IVPUSH ONE (10:52)
[2020-07-05 12:07] VITALS: BP 107/80; PULSE 81
[2020-07-05] MEDS ORDERED: Iopamidol 755 MG/ML 500 ML Multipack Bottle IVPUSH STA (18:22)
== END 2020-07-05 11:24 | disposition home or self-care (01) ==
LOC: MW.ED 07:51
DX: S39.011A Strain of muscle, fascia and tendon of abdomen, initial encounter (principal); I10 Essential (primary) hypertension; E03.9 Hypothyroidism, unspecified; F17.210 Nicotine dependence, cigarettes, uncomplicated; Z91.048 Other nonmedicinal substance allergy status; Z88.2 Allergy status to sulfonamides; Z88.8 Allergy status to other drugs, medicaments and biological substances; Z79.899 Other long term (current) drug therapy; X58.XXXA Exposure to other specified factors, initial encounter
CPT/HCPCS: 36415; 71045; 71275; 80053; 81001; 85025; 85379; 93005; 96374; 96375; 99284; A9270; J1100; J1200; J2060; J3490; Q9967

== ENCOUNTER 2020-12-28 12:15 | Emergency (ER) | payer OTHER ==
--- NOTE | 2020-12-28 12:57 | EDM.PDOC ---
ED HPI GENERAL MEDICAL PROBLEM - General Chief Complaint: Lower Extremity Injury/Pain Stated Complaint: INJURY TO RIGHT FOOT Time Seen by Provider: 12/28/20 12:48 Source of Information: Reports: Patient History Limitations: Reports: No Limitations - History of Present Illness INITIAL COMMENTS - FREE TEXT/NARRATIVE: HISTORY AND PHYSICAL: History of present illness: Patient is a 55-year-old female resents emergency room today with concern of right foot injury that occurred just prior to arrival to the ED. Patient states that she works at [employer]. Patient states that a heavy metal object fell off a pallet and landed on top of her right foot. Patient states that she has been able to walk since doing so but does have pain and difficulty putting full weight on her foot. Patient states she has a history of hypertension but denies any other health history. Patient denies any other symptoms or concerns. Patient denies fever, chills, chest pain, shortness of breath, or cough. Denies headache, neck stiff ness, change in vision, syncope, or near syncope. Denies nausea, vomiting, abdominal pain, diarrhea, constipation, or dysuria. Has not noted any blood in urine or stool. Patient has been eating and drinking appropriately. Review of systems: As per history of present illness and below otherwise all systems reviewed and negative. Past medical history: As per history of present illness and as reviewed below otherwise noncontributory. Surgical history: As per history of present illness and as reviewed below otherwise noncontributory. Social history: See social history for further information Family history: As per history of present illness and as reviewed below otherwise noncontributory. Physical exam: General: Patient is alert, oriented, and in no acute distress. Patient sitting comfortably on exam table. Vitals stable and reviewed by me. HEENT: Atraumatic, normocephalic, pupils equal and reactive bilaterally, negative for conjunctival pallor or scleral icterus, mucous membranes moist, TMs normal bilaterally, throat clear, neck supple, nontender, trachea midline. No drooling or trismus noted. No meningeal signs. No hot potato voice noted. Lungs: Clear to auscultation, breath sounds equal bilaterally, chest nontender. Heart: S1S2, regular rate and rhythm without overt murmur Abdomen: Soft, nondistended, nontender. Negative for masses or hepatosplenomegaly. Negative for costovertebral tenderness. Pelvis: Stable nontender. Genitourinary: Deferred. Rectal: Deferred. Skin: Intact, warm, dry. No lesions or rashes noted. Extremities: No obvious deformity of the RLE. Limited ROM of the right ankle due to pain. Full ROM of the remainder RLE without difficulty. Tenderness to palpation over the proximal dorsal aspect of the right foot. Tenderness to palpation over the lateral malleolus. DP/PT pulses intact of the RLE and cap refill < 2 seconds. Otherwise, atraumatic, negative for cords or calf pain. Neurovascular unremarkable. No gross deformities noted. Compartments are soft. Neuro: Awake, alert, oriented. Cranial nerves II through XII unremarkable. Cerebellum unremarkable. Motor and sensory unremarkable throughout. Exam nonfocal. Notes: Symptoms that were prompt return to the ED thoroughly discussed with patient. Discussed importance of follow-up with primary care provider. Voices understanding and is agreeable to plan of care. Denies any further questions or concerns at this time. Diagnostics: Foot/Ankle XR Therapeutics: Post op shoe offered but patient declines as she has one at home. Toradol offered for pain but patient declines Prescription: None Impression: Right foot injury Plan: 1. Rest, ice, elevate the affected extremity. You can apply ice 15 minutes on, 15 minutes off. 2. Tylenol and/or Ibuprofen as directed for pain management or discomfort. 3. Follow up with the primary care provider as discussed. Return to the ED as needed and as discussed. Definitive disposition and diagnosis as appropriate pending reevaluation and review of above. Right Foot Pain Score (Numeric/FACES): 8 - Related Data Allergies Allergy/AdvReac Type Severity Reaction Status Date / Time Iodine and Iodide Containing Allergy Mild Hives Verified 12/28/20 13:10 Produc Sulfa (Sulfonamide AdvReac Vomiting Verified 12/28/20 13:10 Antibiotics) sumatriptan [From Imitrex] AdvReac Tachycardia Verified 12/28/20 13:10 sumatriptan succinate AdvReac Tachycardia Verified 12/28/20 13:10 [From Imitrex] Home Meds: Home Meds Levothyroxine [Synthroid] 75 mcg PO DAILY 01/14/14 [History] hydroCHLOROthiazide [Hydrochlorothiazide] 25 mg PO DAILY 06/15/19 [History] amLODIPine [Norvasc] 5 mg PO DAILY 05/20/20 [History] Past Medical History HEENT History: Reports: None Cardiovascular History: Reports: Hypertension Respiratory History: Reports: Other (See Below) Other Respiratory History: nodule on one lung Gastrointestinal History: Reports: Colon Polyp, GERD Genitourinary History: Reports: None Other Genitourinary History: recurrent bacterial vaginitis 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 Dermatologic History: Reports: None - Infectious Disease History Infectious Disease History: Reports: None - Past Surgical History Head Surgeries/Procedures: Reports: None HEENT Surgical History: Reports: Naso-Sinus Surgery Cardiovascular Surgical History: Reports: None Respiratory Surgical History: Reports: None GI Surgical History: Reports: Cholecystectomy Female Surgical History: Reports: Hysterectomy Neurological Surgical History: Reports: None Oncologic Surgical History: Reports: None Dermatological Surgical History: Reports: None Social & Family History - Family History Family Medical History: No Pertinent Family History HEENT: Reports: Glaucoma Cardiac: Reports: Aneurysm, Hypertension GI: Reports: None : Reports: None OBGYN: Reports: Musculoskeletal: Reports: Arthritis Neurological: Reports: None Psychiatric: Reports: Bipolar Endocrine/Metabolic: Reports: None Hematologic: Reports: None Immunologic: Reports: None Dermatologic: Reports: None Oncologic: Reports: Lymphoma, Skin - Caffeine Use Caffeine Use: Reports: None Review of Systems - Review of Systems Review Of Systems: Comprehensive ROS is negative, except as noted in HPI. ED EXAM, GENERAL - Physical Exam Exam: See Below (see dictation) Course - Vital Signs Last Recorded V/S: Last Vital Signs Temp 97 F 12/28/20 13:11 Pulse 70 12/28/20 14:33 Resp 16 12/28/20 14:33 BP 128/104 H 12/28/20 14:33 Pulse Ox 99 12/28/20 14:33 Departure - Departure Time of Disposition: 14:24 Disposition: Home, Self-Care 01 Clinical Impression: Right foot injury Qualifiers: Encounter type: initial encounter Qualified Code(s): S99.921A - Unspecified injury of right foot, initial encounter - Discharge Information Instructions: Crush Injury of the Foot, [id number] Referrals: Rafi Lobato MD [Primary Care Provider] - Forms: ED Department Discharge Additional Instructions: The following information is given to patients seen in the emergency department who are being discharged to home. This information is to outline your options for follow-up care. We provide all patients seen in our emergency department with a follow-up referral. The need for follow-up, as well as the timing and circumstances, are variable depending upon the specifics of your emergency department visit. If you don't have a primary care physician on staff, we will provide you with a referral. We always advise you to contact your personal physician following an emergency department visit to inform them of the circumstance of the visit and for follow-up with them and/or the need for any referrals to a consulting specialist. The emergency department will also refer you to a specialist when appropriate. This referral assures that you have the opportunity for follow-up care with a specialist. All of these measure are taken in an effort to provide you with optimal care, which includes your follow-up. Under all circumstances we always encourage you to contact your private phys ician who remains a resource for coordinating your care. When calling for follow-up care, please make the office aware that this follow-up is from your recent emergency room visit. If for any reason you are refused follow-up, please contact the [facility] at and asked to speak to the emergency department charge nurse. [facility] [address] [place] [id number] [address] 1. Rest, ice, elevate the affected extremity. You can apply ice 15 minutes on, 15 minutes off. 2. Tylenol and/or Ibuprofen as directed for pain management or discomfort. 3. Follow up with the primary care provider as discussed. Return to the ED as needed and as discussed. Sepsis Event Note (ED) - Focused Exam Vital Signs: Vital Signs Temp Pulse Resp BP Pulse Ox 12/28/20 14:33 70 16 128/104 H 99 12/28/20 13:11 97 F 84 18 118/96 H 97
--- NOTE | 2020-12-28 14:19 | CR ---
Indication: Injury, pain proximal metatarsal region. Technique: Right foot 2 views. Comparison: None. Findings: No acute fracture or dislocation. Mild degenerative changes of the 1st metatarsophalangeal joint. Soft tissues are unremarkable. Impression: No acute findings. Dictated by Jodie Wild MD @ Dec 28 2020 2:17PM Signed by Dr. Jodie Wild @ Dec 28 2020 2:18PM
--- NOTE | 2020-12-28 14:19 | CR ---
Indication: Injury. Technique: Right ankle 3 views. Comparison: None. Findings: No acute fracture or dislocation. Ankle mortise is intact. Soft tissues are unremarkable. Impression: No acute findings. Dictated by Jodie Wild MD @ Dec 28 2020 2:15PM Signed by Dr. Jodie Wild @ Dec 28 2020 2:17PM
[2020-12-28 14:34] VITALS: BP 128/104; PULSE 70
== END 2020-12-28 14:34 | disposition home or self-care (01) ==
LOC: MW.ED 12:15
DX: S99.921A Unspecified injury of right foot, initial encounter (principal); I10 Essential (primary) hypertension; E03.9 Hypothyroidism, unspecified; Z91.041 Radiographic dye allergy status; Z88.2 Allergy status to sulfonamides; Z88.1 Allergy status to other antibiotic agents; Z79.899 Other long term (current) drug therapy; W20.8XXA Other cause of strike by thrown, projected or falling object, initial encounter; Y92.89 Other specified places as the place of occurrence of the external cause; Y99.0 Civilian activity done for income or pay
CPT/HCPCS: 73610-26-RT; 73610-RT; 73620-26-RT; 73620-RT; 99283; 99283-25

== ENCOUNTER 2021-03-20 07:23 | Emergency (ER) | payer OTHER ==
[2021-03-20] MEDS ORDERED: Orphenadrine 60 MG/2 ML Inj IM ONE (08:05)
[2021-03-20] MEDS ORDERED: Ketorolac 30 MG/ML SDV IM ONE (08:05)
[2021-03-20] MEDS ORDERED: traMADol 50 MG Tab PO ONE (08:05)
[2021-03-20] MEDS ORDERED: Lidocaine 5% 700 MG Patch TRDERM ONE (08:06)
--- NOTE | 2021-03-20 08:11 | EDM.PDOC ---
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 Patient denies any recent fevers, shakes, chills, nausea, vomiting, diarrhea, dysuria, frequency, urgency. Patient denies any change in stool or bowel habits. Patient denies any loss of bowel or bladder function. Patient denies any paresthesias around her perineal or perirectal region. Patient denies any weakness to her lower extremities. Patient does complain of numbness to her toes. Patient denies any recent trauma. 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 Patient denies any recent fall or injury. Review of systems: As per history of present illness and below otherwise all systems reviewed and negative. Past medical history: As per history of present illness and as reviewed below otherwise noncontributory. Surgical history: As per history of present illness and as reviewed below otherwise noncontributory. Social history: No reported history of drug abuse. Family history: As per history of present illness and as reviewed below otherwise noncontributory. Physical exam: This patient was seen and evaluated during the 2019 SARS-CoV-2 novel coronavirus pandemic period. Community viral transmission is ongoing at time of this encounter and the emergency department is operating under pandemic response procedures. Constitutional: Patient is oriented to person, place, and time. Appears well- developed and well-nourished. No distress. HEENT: Moist mucous membranes Head: Normocephalic and atraumatic Eyes: Right eye exhibits no discharge. Left eye exhibits no discharge. No scleral icterus Neck: Normal range of motion. No tracheal deviation present. Cardiovascular: Normal rate and regular rhythm. Pulmonary: Effort normal, no respiratory distress. Abdominal: No distention Musculoskeletal: Normal range of motion Neurologic: Alert and oriented to person, place and time. Skin: [place], warm and dry. Psychiatric: Normal mood and affect. Behavior is normal. Judgment and thought content normal. Nursing note and vital signs have been reviewed Neuro: A&Ox3. Cranial nerves II-XII grossly intact, 5/5 strength to bilateral upper and lower extremities, sensation intact to bilateral upper and lower extremities, no nystagmus, PERRLA, EOMI, normal speech, proprioception intact to bilateral lower extremities, normal finger to nose test, antalgic gait normal. Assessment and plan: This is a 55-year-old female who presents ER today complaining of severe pain to her lower back rating down her right leg. Patient's CT scan from her prior visit was reviewed and revealed that she does have DJD to her lower back. In the ED, the patient will be given Toradol, Norflex, Ultram as well as a Lidoderm patch will be reevaluated. 8:54 AM: Patient reevaluated by me. Patient reports that she did receive some relief with the pain medicine but is still is uncomfortable. Patient does appear to be much more comfortable laying in bed when I first evaluated her. Patient will be discharged home with Lidoderm patches, Flexeril and Ultram to assist her with her pain until she is able to see her primary care doctor. Patient be given a work note for 2 to 3 days. Patient does not present with any signs or symptoms of be concerning for an acute cord injury or cord compromise. Patient has no evidence of cauda equina syndrome or cord injury. Reassessment at the time of disposition demonstrates that the patient is in no acute distress. The patient has remained stable throughout the entire ED visit and is without objective evidence for acute process requiring urgent intervention or hospitalization. The patient is stable for discharge, counseling is provided as documented above, discussed symptomatic treatment and specific conditions for return. I have spoken with the patient/caregiver and discussed todays findings, in addition to providing specific details for the plan of care. Questions are answered and there is agreement with the plan. Definitive disposition and diagnosis as appropriate pending reevaluation and review of above. Right lower extremity pain Pain Score (Numeric/FACES): 8 - Related Data Allergies Allergy/AdvReac Type Severity Reaction Status Date / Time Iodine and Iodide Containing Allergy Mild Hives Verified 03/20/21 07:50 Produc Sulfa (Sulfonamide AdvReac Shortness Verified 03/20/21 07:50 Antibiotics) of Breath sumatriptan [From Imitrex] AdvReac Shortness Verified 03/20/21 07:50 of Breath sumatriptan succinate AdvReac Shortness Verified 03/20/21 07:50 [From Imitrex] of Breath Home Meds: Home Meds Levothyroxine [Synthroid] 75 mcg PO DAILY 01/14/14 [History] hydroCHLOROthiazide [Hydrochlorothiazide] 25 mg PO DAILY 06/15/19 [History] amLODIPine [Norvasc] 5 mg PO DAILY 05/20/20 [History] Cyclobenzaprine [Flexeril] 10 mg PO TID PRN #20 tab 03/20/21 [Rx] Ibuprofen 600 mg PO Q6HR PRN #30 tablet 03/20/21 [Rx] Lidocaine 5% [Lidoderm 5%] 1 patch TOP DAILY PRN #7 patch 03/20/21 [Rx] traMADol [Ultram] 50 mg PO Q6H PRN #12 tab 03/20/21 [Rx] Past Medical History HEENT History: Reports: None Cardiovascular History: Reports: Hypertension Respiratory History: Reports: Other (See Below) Other Respiratory History: nodule on one lung Gastrointestinal History: Reports: Colon Polyp, GERD Genitourinary History: Reports: None Other Genitourinary History: recurrent bacterial vaginitis 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 Dermatologic History: Reports: None - Infectious Disease History Infectious Disease History: Reports: None - Past Surgical History Head Surgeries/Procedures: Reports: None HEENT Surgical History: Reports: Naso-Sinus Surgery Cardiovascular Surgical History: Reports: None Respiratory Surgical History: Reports: None GI Surgical History: Reports: Cholecystectomy Female Surgical History: Reports: Hysterectomy Endocrine Surgical History: Reports: None Neurological Surgical History: Reports: None Musculoskeletal Surgical History: Reports: Other (See Below) Other Musculoskeletal Surgeries/Procedures:: left knee scope Oncologic Surgical History: Reports: None Dermatological Surgical History: Reports: None Social & Family History - Family History Family Medical History: No Pertinent Family History HEENT: Reports: Glaucoma Cardiac: Reports: Aneurysm, Hypertension GI: Reports: None : Reports: None OBGYN: Reports: Musculoskeletal: Reports: Arthritis Neurological: Reports: None Psychiatric: Reports: Bipolar Endocrine/Metabolic: Reports: None Hematologic: Reports: None Immunologic: Reports: None Dermatologic: Reports: None Oncologic: Reports: Lymphoma, Skin - Caffeine Use Caffeine Use: Reports: Energy Drinks - Recreational Drug Use Recreational Drug Use: No Review of Systems - Review of Systems Review Of Systems: See Below ED EXAM, GENERAL - Physical Exam Exam: See Below Course - Vital Signs Last Recorded V/S: Last Vital Signs Temp 97.6 F 03/20/21 07:50 Pulse 86 03/20/21 07:50 Resp 17 03/20/21 07:50 BP 159/99 H 03/20/21 07:50 Pulse Ox 96 03/20/21 07:50 - Orders/Labs/Meds Meds: Medications Discontinued Medications Generic Name Dose Route Start Last Admin Trade Name Edwige PRN Reason Stop Dose Admin Ketorolac Tromethamine 30 mg 03/20/21 08:05 03/20/21 08:20 Ketorolac 30 Mg/Ml Sdv IM 03/20/21 08:06 Not Given ONETIME ONE Lidocaine 700 mg 03/20/21 08:06 03/20/21 08:19 Lidocaine 5% 700 Mg Patch TRDERM 03/20/21 08:07 700 mg ONETIME ONE Administration Orphenadrine Citrate 60 mg 03/20/21 08:05 03/20/21 08:19 Orphenadrine 60 Mg/2 Ml Inj IM 03/20/21 08:06 60 mg ONETIME ONE Administration Tramadol HCl 50 mg 03/20/21 08:05 03/20/21 08:18 Tramadol 50 Mg Tab PO 03/20/21 08:06 50 mg ONETIME ONE Administration Departure - Departure Time of Disposition: 08:55 Disposition: Home, Self-Care 01 Condition: Good Clinical Impression: Sciatica, right side Low back pain Qualifiers: Chronicity: acute Back pain laterality: midline Sciatica presence: unspecified whether sciatica present Qualified Code(s): M54.5 - Low back pain - Discharge Information Instructions: Sciatica, Acute Back Pain, Adult Referrals: Rafi Lobato MD [Primary Care Provider] - Forms: ED Department Discharge Additional Instructions: Your seen and evaluated in the ER today secondary to acute lower back pain with likely sciatica. You will be discharged home with a prescription for Lidoderm patches, Flexeril, Ultram, and ibuprofen. Please get plenty rest over the next couple days. You will be given a work note for 2 days. Please see your doctor early next week if your pain should persist and he should need more time off. The following information is given to patients seen in the emergency department who are being discharged to home. This information is to outline your options for follow-up care. We provide all patients seen in our emergency department with a follow-up referral. The need for follow-up, as well as the timing and circumstances, are variable depending upon the specifics of your emergency department visit. If you don't have a primary care physician on staff, we will provide you with a referral. We always advise you to contact your personal physician following an emergency department visit to inform them of the circumstance of the visit and for follow-up with them and/or the need for any referrals to a consulting specialist. The emergency department will also refer you to a specialist when appropriate. This referral assures that you have the opportunity for follow-up care with a specialist. All of these measure are taken in an effort to provide you with optimal care, which includes your follow-up. Under all circumstances we always encourage you to contact your private physician who remains a resource for coordinating your care. When calling for follow-up care, please make the office aware that this follow-up is from your recent emergency room visit. If for any reason you are refused follow-up, please contact the [facility] Emergency Department at and asked to speak to the emergency department charge nurse. [facility] [address] [place] [id number] [address] Sepsis Event Note (ED) - Evaluation Sepsis Screening Result: No Definite Risk - Focused Exam Vital Signs: Vital Signs Temp Pulse Resp BP Pulse Ox 03/20/21 07:50 97.6 F 86 17 159/99 H 96
[2021-03-20 09:09] VITALS: BP 162/102; PULSE 81
== END 2021-03-20 09:09 | disposition home or self-care (01) ==
LOC: MW.ED 07:23
DX: M54.41 Lumbago with sciatica, right side (principal); I10 Essential (primary) hypertension; E03.9 Hypothyroidism, unspecified; Z91.048 Other nonmedicinal substance allergy status; Z88.2 Allergy status to sulfonamides; Z88.8 Allergy status to other drugs, medicaments and biological substances; Z79.899 Other long term (current) drug therapy
CPT/HCPCS: 96372; 99283; A9270; J2360

== ENCOUNTER 2021-06-29 12:16 | Emergency (ER) | payer OTHER ==
[2021-06-29] MEDS ORDERED: Aspirin 81 MG Tab.Chew PO ONE (12:19)
--- NOTE | 2021-06-29 12:23 | PCM.EKG ---
#1 Interpretation EKG Date: 06/29/21 Time: 12:14 Rhythm: NSR Rate (Beats/Min): 86 [place]: Normal P-Wave: Present QRS: Normal ST-T: Normal QT: Normal Comparison: No Change (07/05/20) EKG Interpretation Comments: Sinus Rhythm with LVH
--- NOTE | 2021-06-29 12:39 | EDM.PDOC ---
ED HPI GENERAL MEDICAL PROBLEM - General Chief Complaint: Chest Pain Stated Complaint: CHEST PAIN Time Seen by Provider: 06/29/21 12:18 - History of Present Illness INITIAL COMMENTS - FREE TEXT/NARRATIVE: CHIEF COMPLAINT(S): Chest pain HISTORY OF PRESENT ILLNESS: This is a 55-year-old woman with a past medical history of hypertension, tobacco use disorder, and arthritis who comes to the emergency department with a chief complaint of chest pain. The patient states that approximately 2-1/2 to 3 hours prior to arrival she started to experience chest pain at her chest associated with nausea without any vomiting or diaphores is. She states that it resolved after approximately 1 and half hours. She states that the pain was rated 10 out of 10 did not radiate. After the pain resolved she had some chest pressure. 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 She states that currently her pain is 0 out of 10 and just feels pressure. She felt palpitations, shortness of breath, and diaphoresis. She denies any vomiting but states that she did feel nausea. All of this has since resolved. She denied any exacerbating factors or relieving factors. She states that she was not exerting herself at all. She denies any recent travel, recent surgery, prior history of DVT or PE. She denies any hormone use. She denies any history of CAD or CHF. She is fully vaccinated against coronavirus last dose in January 2021. REVIEW OF SYSTEMS: Constitutional: Denies fever, chills. Eyes: Denies eye pain Ears, Nose, Mouth, & Throat: Denies earache Cardiovascular: Positive for left-sided chest pain Respiratory: Positive for shortness of breath Gastrointestinal: Positive for nausea. Denies vomiting, diarrhea, medic easier, hematemesis, bilious emesis genitourinary: Denies hematuria Skin:Denies a rash MSK: Denies joint pain Neurological: Denies blurred vision Psychiatric: Denies depression PAST MEDICAL HISTORY: As per history of present illness and as reviewed below otherwise noncontributory. SURGICAL HISTORY: As per history of present illness and as reviewed below otherwise noncontributory. SOCIAL HISTORY: As per history of present illness and as reviewed below otherwise noncontributory. FAMILY HISTORY: As per history of present illness and as reviewed below otherwise noncontributory. EXAMINATION OF ORGAN SYSTEMS/BODY AREAS: Constitutional: Blood pressure is 138/95, heart rate 94, respiratory rate 18 with an oxygen saturation of 95% on room air. Temperature 36.7 General: Well-appearing woman who is in no acute distress Psychiatric: Appropriate mood and affect. Eyes: No scleral icterus or conjunctival erythema ENMT: Moist mucous membranes. No pharyngeal erythema Cardiovascular: Regular, rate, and rhythm. No gallops, murmurs, or rubs. Bilateral upper extremity pulses symmetric and intact. No peripheral edema. No JVD. There is reproducible chest wall pain on examination along the left side of her chest. No obvious skin changes. Respiratory: Lungs clear to auscultation bilaterally. No wheezes, rales, or rhonchi. Gastrointestinal: Soft, non-tender, non-distended. Normoactive bowel sounds Genitourinary: No suprapubic tenderness Musculoskeletal: Normal range of motion. Skin: No lesions or abrasions. Neurological: Alert, GCS 15 MEDICAL DECISION MAKING AND COURSE IN THE ED WITH INTERPRETATION/REVIEW OF DIAGNOSTIC STUDIES: This is a 55-year-old man with a past medical history of hypertension and tobacco use disorder who comes to the emergency department with acute onset intermittent chest pain on the left side of her chest associated diaphoresis nausea and shortness of breath who has normal vital signs that was not exertional and resolved even while continuing at work. At this time we did obtain an EKG which was unremarkable and revealed sinus rhythm. Will obtain a repeat EKG. At this time differential includes musculoskeletal pain, ACS, pneumonia. Obtain CBC, BMP, magnesium, troponin, TSH. Will obtain a chest x- ray and place the patient on cardiac monitoring and pulse oximetry. Patient received 325 mg of p.o. aspirin in route. Therefore no additional aspirin will be provided. The patient is currently not experiencing any pain therefore no additional pain medications will be provided. Heart Score History: Moderately Suspicious (1) ECG: Non-specific repolarization (1) Age: 45-64 (1) Risk Factors: 1-2 (1) Initial Troponin: </= normal limit (0) Total Score: 4 Wells Criteria Clinical signs/symptoms of DVT: No (0) PE #1 Dx or equally likely: No (0) Heart Rate >100: No (0) Immobilization for 3 days or surgery in last month: No (0) Previously Dx PE or DVT: No (0) Hemoptysis: No (0) Malignancy w/ Tx within 6 months or palliative: No (0) Wells Score: 0 -> pretest probability is low and well score is 0. No further work-up for PE will be initiated. Laboratory: CBC is unremarkable. BMP reveals hyponatremia at 135, hypokalemia 2.9, hypochloremia at 94, elevated creatinine of 1.1 and hyperglycemia at 117. Magnesium is normal at 1.9. Troponin is negative. TSH is 1.82. After labs I did provide the patient with potassium supplementation. This time I discussed repeat troponin. She was amenable to this plan. The radiological images were viewed by myself along with reading the report from the radiologist. Chest x-ray does not reveal any acute cardiopulmonary process. There is mild right apical pleural-parenchymal scarring. Laboratory: Repeat troponin is negative. After labs and imaging I did discuss results with the patient. Given that she is moderate risk I did discuss observation admission versus follow-up outpatient. She wanted to follow-up outpatient. At this time we did contact cardiology. They deny results available therefore we contacted primary care physician who will initiate outpatient cardiac work-up. Patient was amenable to discharge at this time and had no further questions. DISPOSITION: The patient was discharged home in stable condition. The patient will follow up with her primary care physician to initiate cardiac work-up and follow-up with cardiology CONDITION: Fair PROCEDURES: None FINAL IMPRESSION(S)/DIAGNOSES: 1. Acute chest pain Leoncio Valenzuela M.D. chest pain Pain Score (Numeric/FACES): 3 - Related Data Allergies Allergy/AdvReac Type Severity Reaction Status Date / Time Iodine and Iodide Containing Allergy Mild Hives Verified 06/29/21 12:17 Produc Sulfa (Sulfonamide AdvReac Shortness Verified 06/29/21 12:17 Antibiotics) of Breath sumatriptan [From Imitrex] AdvReac Shortness Verified 06/29/21 12:17 of Breath sumatriptan succinate AdvReac Shortness Verified 06/29/21 12:17 [From Imitrex] of Breath Home Meds: Home Meds Levothyroxine [Synthroid] 75 mcg PO DAILY 01/14/14 [History] hydroCHLOROthiazide [Hydrochlorothiazide] 25 mg PO DAILY 06/15/19 [History] amLODIPine [Norvasc] 5 mg PO DAILY 05/20/20 [History] Cyclobenzaprine [Flexeril] 10 mg PO TID PRN #20 tab 03/20/21 [Rx] Ibuprofen 600 mg PO Q6HR PRN #30 tablet 03/20/21 [Rx] Lidocaine 5% [Lidoderm 5%] 1 patch TOP DAILY PRN #7 patch 03/20/21 [Rx] traMADol [Ultram] 50 mg PO Q6H PRN #12 tab 03/20/21 [Rx] Past Medical History HEENT History: Reports: None Cardiovascular History: Reports: Hypertension Respiratory History: Reports: Other (See Below) Other Respiratory History: nodule on one lung Gastrointestinal History: Reports: Colon Polyp, GERD Genitourinary History: Reports: None Other Genitourinary History: recurrent bacterial vaginitis [employer] History: Reports: 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 Dermatologic History: Reports: None - Infectious Disease History Infectious Disease History: Reports: None - Past Surgical History Head Surgeries/Procedures: Reports: None HEENT Surgical History: Reports: Naso-Sinus Surgery Cardiovascular Surgical History: Reports: None Respiratory Surgical History: Reports: None GI Surgical History: Reports: Cholecystectomy Female Surgical History: Reports: Hysterectomy Endocrine Surgical History: Reports: None Neurological Surgical History: Reports: None Musculoskeletal Surgical History: Reports: Other (See Below) Other Musculoskeletal Surgeries/Procedures:: left knee scope Oncologic Surgical History: Reports: None Dermatological Surgical History: Reports: None Social & Family History - Family History Family Medical History: No Pertinent Family History HEENT: Reports: Glaucoma Cardiac: Reports: Aneurysm, Hypertension GI: Reports: None : Reports: None OBGYN: Reports: Musculoskeletal: Reports: Arthritis Neurological: Reports: None Psychiatric: Reports: Bipolar Endocrine/Metabolic: Reports: None Hematologic: Reports: None Immunologic: Reports: None Dermatologic: Reports: None Oncologic: Reports: Lymphoma, Skin - Tobacco Use Tobacco Use Status *Q: Current Every Day Tobacco User Years of Tobacco use: 33 Packs/Tins Daily: 0.8 - Caffeine Use Caffeine Use: Reports: Energy Drinks - Alcohol Use Days Per Week of Alcohol Use: 7 Number of Drinks Per Day: 3 Total Drinks Per Week: 21 - Recreational Drug Use Recreational Drug Use: No ED ROS GENERAL - Review of Systems Review Of Systems: See Below ED EXAM, GENERAL - Physical Exam Exam: See Below Course - Vital Signs Last Recorded V/S: Last Vital Signs Temp 36.7 C 06/29/21 12:17 Pulse 109 H 06/29/21 15:30 Resp 20 06/29/21 15:30 BP 129/92 H 06/29/21 15:30 Pulse Ox 98 06/29/21 15:30 - Orders/Labs/Meds Labs: Laboratory Tests 06/29/21 06/29/21 06/29/21 Range/Units 12:19 12:19 14:05 WBC 8.38 (4.0-11.0) K/uL RBC 4.16 L (4.30-5.90) M/uL Hgb 14.5 (12.0-16.0) g/dL Hct 40.5 (36.0-46.0) % MCV 97.4 (80.0-98.0) fL MCH 34.9 H (27.0-32.0) pg MCHC 35.8 (31.0-37.0) g/dL RDW Std Deviation 44.2 (28.0-62.0) fl RDW Coeff of Fidencio 13 (11.0-15.0) % Plt Count 227 (150-400) K/uL MPV 10.00 (7.40-12.00) fL Neut % (Auto) 63.0 (48.0-80.0) % Lymph % (Auto) 25.5 (16.0-40.0) % [place] % (Auto) 10.0 (0.0-15.0) % Eos % (Auto) 1.3 (0.0-7.0) % Baso % (Auto) 0.2 (0.0-1.5) % Neut # (Auto) 5.3 (1.4-5.7) K/uL Lymph # (Auto) 2.1 (0.6-2.4) K/uL [place] # (Auto) 0.8 (0.0-0.8) K/uL Eos # (Auto) 0.1 (0.0-0.7) K/uL Baso # (Auto) 0.0 (0.0-0.1) K/uL Nucleated RBC % 0.0 /100WBC Nucleated RBCs # 0 K/uL Sodium 135 L (136-145) mmol/L Potassium 2.9 L (3.5-5.1) mmol/L Chloride 94 L (98-107) mmol/L Carbon Dioxide 29.6 (21.0-32.0) mmol/L BUN 14 (7.0-18.0) mg/dL Creatinine 1.1 H (0.6-1.0) mg/dL Est Cr Clr Drug Dosing 50.49 mL/min Estimated GFR (MDRD) 51.8 ml/min Glucose 117 H (74-106) mg/dL Calcium 9.8 (8.5-10.1) mg/dL Magnesium 1.9 (1.8-2.4) mg/dL Troponin I < 0.050 < 0.050 (0.000-0.056) ng/mL TSH, Ultra Sensitive 1.82 (0.36-3.74) uIU/mL Meds: Medications Discontinued Medications Generic Name Dose Route Start Last Admin Trade Name Freq PRN Reason Stop Dose Admin Aspirin 324 mg 06/29/21 12:19 06/29/21 12:48 Aspirin 81 Mg Tab.Chew PO 06/29/21 12:20 Not Given ONETIME ONE Sodium Chloride 1,000 mls @ 999 mls/hr 06/29/21 13:30 06/29/21 13:36 Normal Saline IV 999 mls/hr ASDIRECTED HARDIK Administration Potassium Chloride 40 meq 06/29/21 13:25 06/29/21 13:33 Potassium Chloride 10% 20 Meq/15 Ml Soln 30 Ml Ud Cup PO 06/29/21 13:26 40 meq ONETIME ONE Administration Departure - Departure Time of Disposition: 14:58 Disposition: Home, Self-Care 01 Condition: Fair Clinical Impression: Chest pain - Discharge Information *PRESCRIPTION DRUG MONITORING PROGRAM REVIEWED*: No *COPY OF PRESCRIPTION DRUG MONITORING REPORT IN PATIENT [place]: No Instructions: Nonspecific Chest Pain, Adult, [id number], Angina, [id number] Referrals: Inez Llanes DO [Ordering Only Provider] - 06/30/21 1:30 pm (Please arrive to your appointment 15 mins early for check in process. ) Abelino Davies MD [Physician] - Forms: ED Department Discharge Additional Instructions: You were evaluated today on an emergent basis. As discussed you were a moderate risk for heart issues and we did offer observation admission. At this time in discussion with you we decided on outpatient follow-up with cardiology. As discussed I would like you to contact cardiology tomorrow and make an appointment. We will place you on the quick follow-up list for cardiology. In the meantime I would like you to follow-up with your primary care physician in order to discuss and order further work-up. If you have any worsening chest pain, shortness of breath I would like you to return to the emergency department. In addition I would like you to start taking a daily multivitamin. [facility] [address] [place], [place] [id number] [place] [address] The patient is informed of any results of their evaluation and diagnostic workup and all questions are answered. They are given discharge instructions and return precautions. The patient is stable for discharge. The patient states they understand and agree with the plan and that they will return if their symptoms get worse or if they have any new concerns. The following information is given to patients seen in the emergency department who are being discharged to home. This information is to outline your options for follow-up care. We provide all patients seen in our emergency department with a follow-up referral. The need for follow-up, as well as the timing and circumstances, are variable depending upon the specifics of your emergency department visit. If you don't have a primary care physician on staff, we will provide you with a referral. We always advise you to contact your personal physician following an emergency department visit to inform them of the circumstance of the visit and for follow-up with them and/or the need for any referrals to a consulting specialist. The emergency department will also refer you to a specialist when appropriate. This referral assures that you have the opportunity for follow-up care with a specialist. All of these measure are taken in an effort to provide you with optimal care, which includes your follow-up. Under all circumstances we always encourage you to contact your private physician who remains a resource for coordinating your care. When calling for follow-up care, please make the office aware that this follow-up is from your recent emergency room visit. If for any reason you are refused follow-up, please contact the [facility] Emergency Department at and asked to speak to the emergency department charge nurse. Sepsis Event Note (ED) - Evaluation Sepsis Screening Result: No Definite Risk
--- NOTE | 2021-06-29 12:58 | CR ---
INDICATION: Chest Pain TECHNIQUE: Chest radiograph 1 view COMPARISON: 07/05/2020 FINDINGS: Mediastinum: The mediastinum is normal in appearance. The heart silhouette is normal in size and morphology. Lung: Mild right apical pleural parenchymal scarring is noted. The left apex is partially excluded. No pneumothorax is identified. Bone and Soft tissue: Unremarkable for age. IMPRESSION: 1. No acute cardiopulmonary disease is seen. Dictated by Eric Gomez MD @ 06/29/2021 12:57:45 PM Dictated by: Eric Gomez MD @ 06/29/2021 12:57:50 (Electronically Signed)
[2021-06-29 13:06] LABS: BLOOD UREA NITROGEN,BUN 14 mg/dL (7.0-18.0); CARBON DIOXIDE,CO2 29.6 mmol/L (21.0-32.0); CHLORIDE,CL 94 mmol/L (98-107); GLUCOSE RANDOM 117 mg/dL (74-106); POTASSIUM,K 2.9 mmol/L (3.5-5.1); SODIUM,NA 135 mmol/L (136-145)
[2021-06-29] MEDS ORDERED: Potassium Chloride 10% 20 MEQ/15 ML Soln 30 ML UD Cup PO ONE (13:25)
[2021-06-29] MEDS ORDERED: Sodium Chloride 0.9% 1,000 ML IV SCH (13:30)
[2021-06-29 19:24] VITALS: BP 129/92; PULSE 109
== END 2021-06-29 15:30 | disposition home or self-care (01) ==
LOC: MW.ED 12:16
DX: R07.89 Other chest pain (principal); I10 Essential (primary) hypertension; E03.9 Hypothyroidism, unspecified; Z72.0 Tobacco use; Z88.8 Allergy status to other drugs, medicaments and biological substances; Z88.2 Allergy status to sulfonamides; Z79.899 Other long term (current) drug therapy
CPT/HCPCS: 36415; 71045; 80048; 83735; 84443; 84484; 85025; 93005; 99285; A9270; J7030

== ENCOUNTER 2022-01-09 18:30 | Emergency (ER) | payer OTHER ==
[2022-01-09] MEDS ORDERED: Sodium Chloride 0.9% 10 ML Syringe FLUSH PRN (18:46)
[2022-01-09] MEDS ORDERED: Sodium Chloride 0.9% 2.5 ML Syringe FLUSH PRN (18:46)
[2022-01-09 20:05] LABS: BLOOD UREA NITROGEN,BUN 18 mg/dL (7.0-18.0); CARBON DIOXIDE,CO2 30.1 mmol/L (21.0-32.0); CHLORIDE,CL 98 mmol/L (98-107); GLUCOSE RANDOM 102 mg/dL (74-106); LIPASE 92 U/L (73-393); POTASSIUM,K 3.1 mmol/L (3.5-5.1); SODIUM,NA 138 mmol/L (136-145)
[2022-01-09] MEDS ORDERED: Potassium Chloride 20 MEQ Tab.ER PO ONE (21:16)
[2022-01-09 23:07] VITALS: BP 126/78; PULSE 87
== END 2022-01-09 21:45 | disposition home or self-care (01) ==
LOC: MW.ED 18:30
DX: R10.9 Unspecified abdominal pain (principal); E87.6 Hypokalemia; I10 Essential (primary) hypertension; K21.9 Gastro-esophageal reflux disease without esophagitis; Z91.041 Radiographic dye allergy status; Z88.2 Allergy status to sulfonamides; Z88.8 Allergy status to other drugs, medicaments and biological substances; Z79.899 Other long term (current) drug therapy; Z90.49 Acquired absence of other specified parts of digestive tract
CPT/HCPCS: 36415; 74176; 80053; 81001; 83690; 84484; 84703; 85025; 87086; 93005; 99284; A9270